=== PATIENT | female | born 1945 | race Caucasian/White ===

== ENCOUNTER 2016-08-11 16:12 | Emergency (ER) | payer OTHER ==
[~2016-08-11] VITALS: Ht 162.6 cm; Wt 53.5 kg
[~2016-08-11 16:12] MED LIST: ALENDRONATE SOD35 M2 PO; ALPRAZOLAM0.5 M3 PO; COUMADIN 2.5 M2.5 MG PO; DELZICOL400 M1 PO; DOCUSATE SODIU100 MG PO; FAMOTIDINE20 M1 PO; FOSAMAX5 MG PO; LOPERAMIDE2 M2 PO; OMEPRAZOLE20 M2 PO; OMEPRAZOLE40 MG PO; PANTOPRAZOLE SO40 M1 PO; PERCOCET 325 MG1 TA2 PO; PREDNISONE10 M2 PO; PROBIOTIC1 EACH PO; VITAMIN E400 UNI1 PO
[2016-08-11 17:00] LABS: ABSOLUTE BASOPHIL COUNT 0.1 /CUMM (0.0-0.2); ABSOLUTE EOSINOPHIL COUNT 0 /CUMM (0.0-0.7); ABSOLUTE GRANULOCYTE CT 5.7 /CUMM (1.4-6.5); ABSOLUTE LYMPH COUNT 1.1 /CUMM (1.2-3.4); ABSOLUTE MONOCYTE COUNT 0.7 /CUMM (0.10-0.60); BASOPHIL % 1.2 % (0.0-2.0); EOSINOPHIL % 0.6 % (0-5); GRANULOCYTE % 74.2 % (42.2-75.2); HEMATOCRIT 36.5 % (37-47); MEAN CORPUSCULAR HGB 28.3 PG (27.0-31.0); MEAN CORPUSCULAR HGB CONC 33.5 G/DL (33.0-37.0); MEAN CORPUSCULAR VOLUME 84.5 FL (81.0-99.0); MEAN PLATELET VOLUME 7.5 FL (7.4-10.4); PLATELET COUNT 488 /CUMM (130-400); RED BLOOD CELL CT 4.32 /CUMM (4.20-5.40); WHITE BLOOD CELL COUNT 7.6 /CUMM (4.8-10.8)
--- NOTE | 2016-08-11 18:28 | ED GI/GU/ABDOMINAL COMPLAINT ---
History of Present Illness General Chief Complaint: Abdominal Pain/Flank Pain Stated Complaint: NAUSEA, WEAK, ABD PAIN Source: patient, family, old records Exam Limitations: no limitations Vital Signs & Intake/Output Vital Signs & Intake/Output Vital Signs Date Time Temp Pulse Resp B/P Pulse O2 O2 Flow FiO2 Ox Delivery Rate 08/11 2220 97.4 93 18 109/70 97 Room Air 08/11 2117 97.1 100 18 114/68 96 Room Air 08/11 2000 96 08/11 1850 98.7 76 18 109/64 96 08/11 1628 97.7 53 16 146/83 95 Room Air ED Intake and Output 08/12 0000 08/11 1200 Intake Total Output Total Balance Patient 118 lb Weight Allergies Coded Allergies: NO KNOWN ALLERGIES (03/21/14) Reconcile Medications Budesonide (Uceris) (Unknown Strength) TABDR...ER (Unknown Dose) PO AD GI ( Reported) Famotidine 20 MG TABLET 1 TAB PO BID GI (Reported) Furosemide 20 MG TABLET 1 TAB PO DAILY PRN DIURETIC (Reported) Furosemide (Lasix) 40 MG TABLET 1 TAB PO DAILY leg edema Mesalamine 4 GRAM/60 ML ENEMA 1 E FL DAILY GI (Reported) Omeprazole 20 MG CAPSULE.DR 1 CAP PO DAILY GI (Reported) Ondansetron (Zofran Odt) 4 MG TAB.RAPDIS 1 TAB SL TID PRN nausea Potassium Chloride 20 MEQ TAB.ER.PRT 1 TAB PO DAILY SUPPLEMENT (Reported) Triage Note: PT STATES SHE WAS DIAGNOSED WITH COLITIS. PT STATSE SHE HASN'T BEEN ABLE TO EAT BECAUSE SHE HAS NAUSEA. PT HAS RASH TO LLE. PT STATES SHE KEEPS LOOSING WEIGHT. Triage Nurses Notes Reviewed? yes ? N Is pt currently ? No Onset: Abrupt Duration: week(s): (2), intermittent, waxing and waning Timing: recent history Quality/Severity: NAUSEA Severity Numbers: 5 Location: generalized abdomen Radiation: no radiation Activities at Onset: none Prior Abdominal Problems: similar symptoms No Modifying Factors: none Associated Symptoms: LEG EDEMA HPI: This is a 71-year-old female with history of ulcerative colitis presents to emergency room complaining of 2 week history of intermittent waxing and waning nausea for which she is been unable to eat anything. The patient states she was seen by her print decorator Dr. FLORES last week. The patient has never been on any nausea medicine she states however she hasn't been on steroids due to her colitis. She denies any abdominal pain vomiting diarrhea. She states she had a normal bowel movement this morning no black or bloody stools. The patient is also complaining of bilateral lower extremity edema which she states she's had on and off for the past several months. She was admitted here in April which time she had a negative ultrasound performed. She was admitted at that time because her potassium was low. She denies any leg pain chest pain fever. She states that she has chronic chills without is an ongoing issue. She states that she has been losing weight she cannot eat anything due to her nausea. She is not sought care for these symptoms until today however The patient is complaining of a rash to the bilateral lower extremities and shins. She denies any known injury or trauma however states is been present for approximately a week it is not getting larger or getting better. There are no modifying factors or associated symptoms otherwise no shortness of breath (AZUL CAZARES,MARSHAL) Past History Travel History Traveled to [place] past 21 day No Medical History Any Pertinent Medical History? 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 History of MRSA: No History of VRE: No History of CDIFF: No Pneumonia Vaccine: 07/31/13 Influenza Vaccine: 04/29/16 Surgical History Surgical History: hernia repair-inguinal (left), knee replacement, LEFT NEPHRECTOMY (donated to late in 1999) LIH repair 12/2005: R TKR 02/2014: redo R TKR Psychosocial History Who do you live with Daughter Services at Home None What is your primary language Marshallese Tobacco Use: Quit >30 days ago ETOH Use: denies use Illicit Drug Use: denies illicit drug use Family History Family History, If Any: FATHER, , Age 77; Cause: Unknown cause of morbidity or mortality. MOTHER, , Age 96; Cause: Dementia. Hx Contributory? No (MARSHAL HANKINS) Review of Systems Review of Systems Constitutional: Reports: see HPI. All Other Systems: Reviewed and Negative Comments Review of systems: See HPI, All other systems negative. Constitutional, no chills no fever, no malaise no weight los HEENT: No visual changes no sore throat no congestion, Cardiovascular: No chest pain , no palpitation , Skin, no jaundice no rashes, no change in skin Respiratory: No dyspnea no cough no sputum GI: nausea no vomiting, no diarrhea, : No dysuria Muscle skeletal: No joint pain, no back pain, no neck pain, Neurologic: No numbness no headache Psych: No stress Heme/endocrine: No bruising no bleeding Immunology: No lymphadenopathy (MARSHAL HANKINS) Physical Exam Physical Exam General Appearance: well developed/nourished, no apparent distress, alert, awake , comfortable Gastrointestinal: normal bowel sounds, soft, non-tender Comments: Well-developed well-nourished person in no acute distress HEENT: Normal EENT exam; PERRL, EOMI, HEAD is atraumatic. moist mucous membranes. Neck: Supple, normal range of motion Back: Nontender, no CVA tenderness. Full range of motion Cardiovascular: Regular rate and rhythms no murmurs rubs Respiratory: Chest nontender.There were no bony deformities, no asymmetry. No respiratory distress. Patient speaking in full complete sentences. Breath sounds clear to auscultation bilaterally: NO W/R/R Abdomen: Soft, nontender nondistended, no appreciable organomegaly. Normal bowel sounds. No rebound/guarding, No appreciable enlargement of the abdominal aorta, No ascites. Extremity:2+ B/L LE edema, full range of motion of extremities, normal and equal pulses bilaterally, 5 out of 5 strength noted to bilateral upper and lower extremities Neuro: Alert oriented x3, motor sensory normal, There were no obvious focal neurologic abnormalities. Skin: There is is an area of hyperpigmentation noted to the anterior surface of bilateral lower extremities there's no warmth no streaking up the skin nontender skin is intact, skin is warm and dry. Psych: Mood and affect is normal, memory and judgment is normal. Core Measures ACS in differential dx? No Severe Sepsis Present: No Septic Shock Present: No (MARSHAL HANKINS) Progress Differential Diagnosis: biliary colic, bowel obstruction, colon cancer, cholecystitis, diverticulitis, endometritis, esophageal varices, gastritis, hepatitis, hernia, hemorrhoids, ischemic bowel, inflamm bowel dis, kidney stone, Ivana-Dieudonne tear, pancreatitis, peptic ulcer, PUD/GERD, perforated viscous, SBO , dvt MEDICATION SIDE EFFECT PERIPHERAL EDEMA Plan of Care: Orders Procedure Date/time Status Saline Lock 08/11 1848 Active COMPREHENSIVE METABOLIC PANEL 08/11 1640 Complete CBC WITHOUT DIFFERENTIAL 08/11 1640 Complete EKG 08/11 1631 Active Laboratory Tests 08/11/16 1643: Anion Gap 12, Estimated GFR > 60, BUN/Creatinine Ratio 20.0, Glucose 87, Calcium 7.7 L, Total Bilirubin 0.6, AST 25, ALT 30, Alkaline Phosphatase 132 H, Total Protein 6.0 L, Albumin 2.3 L, Globulin 3.7, Albumin/Globulin Ratio 0.6 L, CBC w Diff NO MAN DIFF REQ, RBC 4.32, MCV 84.5, MCH 28.3, RDW 15.0 H, MPV 7.5, Gran % 74.2, Lymphocytes % 14.8 L, Monocytes % 9.2, Eosinophils % 0.6, Basophils % 1.2, Absolute Granulocytes 5.7, Absolute Lymphocytes 1.1 L, Absolute Monocytes 0.7 H, Absolute Eosinophils 0, Absolute Basophils 0.1, PUBS MCHC 33.5 Labs ordered from triage ultrasound ordered patient noted to be eating yogurt upon my evaluation I discussed with her at leave over lab results. Old records reviewed show the patient was admitted several months ago for hypokalemia of 2.6. Patient clinically appears well she is tolerating yogurt at this time ultrasound ordered Zofran, potassium IV ordered case was discussed with Dr. FERRELL Discussed with the patient and her family her ultrasound results prescription for Zofran was provided I discussed with her need for close follow up with her primary care as well as GI. I advised her to increase her Lasix to 40 mg a day from 20 mg a day keep her legs elevated. They feel comfortable to plan she is tolerating by mouth with the Zofran (MARSHAL HANKINS) Diagnostic Imaging: Viewed by Me: Ultrasound. Discussed w/RAD: Ultrasound. Radiology Impression: PATIENT: ANGELITA PALACIOS PRESENT AGE: 71 PATIENT ACCOUNT NO: [id number] : 43 LOCATION: [facility] ORDERING PHYSICIAN: MARSHAL CAZARES SERVICE DATE: 08/11/16 EXAM TYPE: US - US-EXT BILAT VENOUS DOPPLER EXAMINATION: US TRIPLEX LOWER EXTREMITY, BILATERAL CLINICAL INFORMATION: 71-year-old female patient with bilateral pain, edema, swelling, and leg tenderness. Previous knee replacement x2. Ulcerative colitis. COMPARISON : Triplex scan on 05/06/2016. (Normal). TECHNIQUE: Color-flow triplex imaging with spectral analysis and compression Doppler were performed on the bilateral lower extremities. FINDINGS: Respiratory variation, normal compression and augmented flow are noted throughout the bilateral lower extremities. The visualized common femoral vein, superficial femoral vein, profunda femoral vein, popliteal vein and mid calf peroneal and posterior tibial venous segments show no evidence of deep venous thrombosis. Considerable edema is seen in both calves. There is a small Lehman's cyst on the left as previously described. This measures 2.3 x 0.9 x 2.3 cm. It is smaller than before. IMPRESSION: Normal triplex scan without evidence of deep venous thrombosis involving the bilateral lower extremities. DICTATED BY: GIORGIO GALLARDO MD DATE/TIME DICTATED:08/11/162032 WELDING PROCESS ENGINEER:ROSA DATE/TIME TRANSCRIBED:08/11/162032 CONFIDENTIAL, DO NOT COPY WITHOUT APPROPRIATE AUTHORIZATION. <Electronically signed in Other Vendor System> SIGNED BY: GIORGIO GALLARDO MD 08/11/162040 Initial ED EKG: none (AZUL CAZARES,MARSHAL) Departure Departure Time of Disposition: 2050 Disposition: HOME OR SELF CARE Condition: Stable Clinical Impression Primary Impression: Nausea Secondary Impressions: Hypokalemia, Peripheral edema Referrals: SANDRA ALANIS,STEPHANIE BURCIAGA MD,TRAVON Espinoza (PCP/Family) Additional Instructions: Follow-up with your primary care physician tomorrow for repeat evaluation next week. Increase your Lasix to 40 mg once a day. Continue taking the potassium supplements you have at home. Zofran for nausea [place] diet advance diet as tolerated return at anytime sooner with any concerns These prescriptions were sent to your pharmacy. Departure Forms: Customer Survey General Discharge Information Prescriptions: Current Visit Scripts Furosemide (Lasix) 1 TAB PO DAILY #30 TAB Ondansetron (Zofran Odt) 1 TAB SL TID PRN nausea #20 TAB (MARSHAL HANKINS) PA/PILOT FUEL ENGINEER Co-Sign Statement Statement: ED Attending supervision documentation- x I saw and evaluated the patient. I have also reviewed all the pertinent lab results and diagnostic results. I agree with the findings and the plan of care as documented in the PA's/PILOT FUEL ENGINEER's documentation. [] I have reviewed the ED Record and agree with the PA's/PILOT FUEL ENGINEER's documentation. [] Additions or exceptions (if any) to the PAs/PILOT FUEL ENGINEER's note and plan are summarized below: [] (GHASSAN ALANIS,PERLA)
[2016-08-11] MEDS ORDERED: FAMOTIDINE20 M1 PO (19:26)
[2016-08-11] MEDS ORDERED: FUROSEMIDE20 M1 PO (19:26)
[2016-08-11] MEDS ORDERED: MESALAMINE4 GM/60 M1 PR (19:27)
[2016-08-11] MEDS ORDERED: UCERIS9 M1 PO (19:27)
[2016-08-11] MEDS ORDERED: POTASSIUM CHLO20 ME2 PO (19:28)
[2016-08-11] MEDS ORDERED: OMEPRAZOLE20 M2 PO (19:28)
--- NOTE | 2016-08-11 20:41 | ULTRASOUND REPORT ---
EXAMINATION: US TRIPLEX LOWER EXTREMITY, BILATERAL CLINICAL INFORMATION: 71-year-old female patient with bilateral pain, edema, swelling, and leg tenderness. Previous knee replacement x2. Ulcerative colitis. COMPARISON: Triplex scan on 05/06/2016. (Normal). TECHNIQUE: Color-flow triplex imaging with spectral analysis and compression Doppler were performed on the bilateral lower extremities. FINDINGS: Respiratory variation, normal compression and augmented flow are noted throughout the bilateral lower extremities. The visualized common femoral vein, superficial femoral vein, profunda femoral vein, popliteal vein and mid calf peroneal and posterior tibial venous segments show no evidence of deep venous thrombosis. Considerable edema is seen in both calves. There is a small Lehman's cyst on the left as previously described. This measures 2.3 x 0.9 x 2.3 cm. It is smaller than before. IMPRESSION: Normal triplex scan without evidence of deep venous thrombosis involving the bilateral lower extremities.
[2016-08-11] MEDS ORDERED: ZOFRAN ODT4 M1 SL (21:01)
[2016-08-11] MEDS ORDERED: LASIX40 M1 PO (21:01)
[2016-08-11 22:20] VITALS: BP 109/70
== END 2016-08-11 22:40 ==
LOC: ERH 16:12
PROVIDERS: Emergency Medicine
DX: E87.6 Hypokalemia (principal); R60.9 Edema, unspecified; R11.0 Nausea
CPT/HCPCS: 93005; 93010; 93970; 96374; 96375; J1940; J2405

== ENCOUNTER 2016-09-04 17:18 | Inpatient (IN) | payer OTHER ==
[~2016-09-04] VITALS: Ht 162.6 cm; Wt 51.3 kg
[~2016-09-04 17:18] MED LIST changes: +FUROSEMIDE20 M1 PO; +LASIX40 M1 PO; +MESALAMINE4 GM/60 M1 PR; +POTASSIUM CHLO20 ME2 PO; +UCERIS9 M1 PO; +ZOFRAN ODT4 M1 SL
--- NOTE | 2016-09-04 17:45 | ED GENERAL ADULT ---
History of Present Illness General Chief Complaint: General Adult Stated Complaint: POOR PO INTAKE, NASEOUS, WEIGHT LOSS Source: patient Exam Limitations: no limitations Vital Signs & Intake/Output Vital Signs & Intake/Output Vital Signs Date Time Temp Pulse Resp B/P Pulse O2 O2 Flow FiO2 Ox Delivery Rate 09/05 0109 97.7 69 20 118/60 97 Room Air 09/047 97.3 55 16 111/60 98 Room Air 09/04 1825 97 09/04 1745 97.1 47 16 106/53 97 Room Air ED Intake and Output 09/05 0000 09/04 1200 Intake Total 1000 Output Total Balance 1000 Intake, IV 1000 Patient 99 lb 15.99 oz Weight Allergies Coded Allergies: NO KNOWN ALLERGIES (03/21/14) Reconcile Medications Budesonide (Uceris) 9 MG TABDR...ER 1 TAB PO EOD GI (Reported) Famotidine 20 MG TABLET 1 TAB PO BID GI (Reported) Furosemide 20 MG TABLET 1 TAB PO DAILY PRN DIURETIC (Reported) Furosemide (Lasix) 40 MG TABLET 1 TAB PO DAILY leg edema Mesalamine 4 GRAM/60 ML ENEMA 1 E FL DAILY GI (Reported) Mesalamine (Apriso) 0.375 GRAM CAP.ER.24H 2 CAP PO BID GI (Reported) Multivitamin (Multi-Day Vitamins) 1 EACH TABLET 1 TAB PO DAILY SUPPLEMENT ( Reported) [place]-3 Fatty Acids ([place]-3) (Unknown Strength) CAPSULE (Unknown Dose) PO DAILY SUPPLEMENT (Reported) Omeprazole 20 MG CAPSULE.DR 1 CAP PO DAILY GI (Reported) Ondansetron (Zofran Odt) 4 MG TAB.RAPDIS 1 TAB SL TID PRN nausea Potassium Chloride 20 MEQ TAB.ER.PRT 1 TAB PO DAILY SUPPLEMENT (Reported) Vitamin E Mixed (Vitamin E) 400 UNIT TABLET 1 TAB PO BID SUPPLEMENT (Reported ) Triage Nurses Notes Reviewed? yes Onset: Gradual Duration: 4 MONTHS Timing: recent history Injury Environment: home Severity: moderate Associated Symptoms: NAUSEA, WEIGHT LOSS, ANOREXIA HPI: This is a 71-year-old female with history of recently diagnosed ulcerative colitis on mesalamine enemas and prednisone who presents to the ER with her daughter for chief complaint of worsening weakness, worsening weight loss. According to the daughter and the patient she is unable to keep because they thought of food makes her very nauseous. She's been having a lot of mucousy diarrhea in the morning mixed in with blood. She is due to have repair of her hiatal hernia at the end of the month by Dr. Dewey but states that she is getting too weak even have surgery. Daughter is very frustrated because although she has had a diagnosis March not in the medications that they have given her our working for her. No fever or chills. No abdominal pain or rectal pain. She denies any loss of consciousness or near syncope at home. (KARINE BAR MD) Past History Travel History Traveled to [place] past 21 day No Medical History Any Pertinent Medical History? 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 MOTHER, , Age 96; Cause: Dementia. Hx Contributory? No (KARINE BAR MD) Review of Systems Review of Systems Constitutional: Reports: malaise, weakness, unexplained weight loss. Denies: chills, fever. EENTM: Reports: no symptoms. Respiratory: Denies: cough, short of breath. Cardiovascular: Denies: chest pain. GI: Reports: diarrhea, nausea. Denies: abdominal pain, vomiting. Genitourinary: Denies: discharge, dysuria. Musculoskeletal: Reports: no symptoms. Skin: Reports: no symptoms. Neurological/Psychological: Reports: no symptoms. Hematologic/Endocrine: Reports: bleeding. Denies: bruising, polyuria, polydipsia. Immunologic/Allergic: Denies: splenectomy. All Other Systems: Reviewed and Negative (DIPIKA ALANIS,KARINE) Physical Exam Physical Exam General Appearance: alert, awake, cachetic, mild distress, thin Head: atraumatic, normal appearance Eyes: Bilateral: normal appearance, PERRL, EOMI. Ears, Nose, Throat: normal pharynx, normal ENT inspection, hearing grossly normal Neck: normal inspection, supple, full range of motion Respiratory: normal breath sounds, chest non-tender, no respiratory distress Cardiovascular: regular rate/rhythm Peripheral Pulses: 2+ radial (R), 2+ radial (L) Gastrointestinal: normal bowel sounds, soft, non-tender Back: normal inspection, normal range of motion Extremities: normal inspection, normal capillary refill, normal range of motion, no edema Neurologic/Psych: no motor/sensory deficits, awake, alert, oriented x 3 Skin: intact, normal color, warm/dry Core Measures ACS in differential dx? No CVA/TIA Diagnosis: No Severe Sepsis Present: No Septic Shock Present: No (KARINE BAR MD) Progress Differential Diagnoses I considered the following diagnoses in my evaluation of the patient: [ Ulcerative colitis exacerbation, dehydration, acute kidney injury, hypokalemia, hypovolemia, hyponatremia, failure of outpatient treatment of ulcerative colitis ] Plan of Care: Orders Procedure Date/time Status Clear Liquid Diet 09/05 B Active PHOSPHORUS 09/05 599 Active MAGNESIUM 09/05 599 Active CBC WITHOUT DIFFERENTIAL 09/05 599 Active BASIC ELECTROLYTES PLUS BUN&CR 09/05 599 Active Vital Signs 09/05 146 Active Teach/Educate 09/05 146 Active Nutritional Intake, Monitor 09/05 146 Active Isolation 09/05 146 Active Intake & Output 09/05 146 Active Patient Care Conference 09/05 014 Active Activity/Ambulation 09/05 014 Active Hemoccult 09/05 UNK Active CULTURE,STOOL 09/04 2346 Active C.DIFFICILE 09/04 2346 Active Pathway - chart 09/04 2311 Active House Staff 09/04 2311 Active Patient Data 09/04 2311 Active Code Status 09/04 2311 Active Patient Data 09/04 2040 Active Saline Lock 09/04 2033 Active Misc Message 09/04 2033 Active ED Holding Orders 09/04 2033 Active Vital Signs 09/04 2033 Active Code Status 09/04 2033 Complete Admit to inpatient 09/04 2032 Active Intake & Output 09/04 182 Active URINALYSIS 09/04 1749 Complete TROPONIN LEVEL 09/04 1749 Complete PARTIAL THROMBOPLASTIN TIME 09/04 1749 Complete PROTHROMBIN TIME 09/04 1749 Complete MAGNESIUM 09/04 1749 Complete COMPREHENSIVE METABOLIC PANEL 09/04 1749 Complete CBC WITHOUT DIFFERENTIAL 09/04 1749 Complete EKG 09/04 1749 Active VTE Mechanical Prophylaxis 09/04 UNK Active Current Medications Sig/Timoteo Start time Last Medication Dose Stop Time Status Admin Omeprazole 20 MG DAILY 09/05 1000 AC (Prilosec) Potassium Chloride 40 MEQ ONCE ONE 09/05 0800 AC (K-Dur) 09/05 08 Sodium Chloride 1,000 ML Q20H 09/05 0130 AC (Normal Saline 0.9%) Mesalamine 750 MG BID 09/04 2359 AC (Pentasa 250MG) Acetaminophen 650 MG Q6P PRN 09/04 2315 AC (Tylenol) Acetaminophen/ 1 TAB Q6P PRN 09/04 2315 AC Hydrocodone Bitart (Vicodin) Oxycodone/ 2 TAB Q6P PRN 09/04 2315 AC Acetaminophen (Percocet) Heparin Sodium 5,000 UNIT Q8 09/04 2310 AC (Porcine) Laboratory Tests 09/04/162051: Urine Color YEL, Urine Clarity CLEAR, Urine pH 6.0, Ur Specific [place] 1.025, Urine Protein TRACE H, Urine Ketones 15 H, Urine Nitrite NEG, Urine Bilirubin NEG@ICTO, Urine Urobilinogen 0.2, Ur Leukocyte Esterase SMALL H, Ur Microscopic SEDIMENT EXAMINED, Urine RBC RARE, Urine WBC 3-5 H, Ur Epithelial Cells MANY H , Hyaline Casts FEW H, Urine Mucus MANY H, Urine Hemoglobin NEG, Urine Glucose NEG 09/04/16 1820: Anion Gap 5, Estimated GFR > 60, BUN/Creatinine Ratio 20.0, Glucose 79, Calcium 7.7 L, Magnesium 1.8, Total Bilirubin 0.7, AST 25, ALT 37, Alkaline Phosphatase 133 H, Troponin I < 0.01, Total Protein 5.7 L, Albumin 2.2 L, Globulin 3.5, Albumin/Globulin Ratio 0.6 L, PT 13.7 H, INR 1.31 H, APTT 29, CBC w Diff NO MAN DIFF REQ, RBC 4.49, MCV 83.3, MCH 27.6, RDW 14.6 H, MPV 7.9, Gran % 79.5 H , Lymphocytes % 11.4 L, Monocytes % 8.2, Eosinophils % 0.2, Basophils % 0.7, Absolute Granulocytes 7.8 H, Absolute Lymphocytes 1.1 L, Absolute Monocytes 0.8 H, Absolute Eosinophils 0, Absolute Basophils 0.1, PUBS MCHC 33.2 Microbiology 09/04 2345 STOOL: Clostridium difficile Toxin A & B - ORD 09/04 2345 STOOL: Stool Culture - ORD Initial ED EKG: NSR, pvcS Hand-Off Endorsed To: MAURICIO EVANS MD Endorsed Time: 1899 Pending: labs (KARINE BAR MD) Differential Diagnoses I considered the following diagnoses in my evaluation of the patient: (MAURICIO EVANS MD) Departure Departure Disposition: HOME OR SELF CARE Condition: Stable Referrals: GUALBERTO ALANIS,TRAVON Espinoza (PCP/Family) Departure Forms: Customer Survey General Discharge Information (KARINE BAR MD) Departure Clinical Impression Primary Impression: Diarrhea Secondary Impressions: Dehydration, Failure to thrive, Hypokalemia, Ulcerative colitis Admission Note Spoke With: MAGED ALANIS,BROOK Chao Documentation of Exam: Documentation of any treatments & extenuating circumstances including Concerns Regarding Discharge (functional status, medication knowledge or non-compliance, living conditions, etc.) that warrant an admission rather than observation: pt with recurrent diarrhea, on oral steroids, has failed out patient management for her ulcerative colitis, also with electrolyte abnormalities. Pt merits iv steroids, consider immunologics, also will need iv fluids and electrolyte repletion. discussed with dr. nicholas (gi) who will evaluate this AM. (MAURICIO EVANS MD) Critical Care Note Critical Care Note Critical Care Time: non-applicable (KARINE BAR MD)
[2016-09-04] MEDS ORDERED: MULTI-DAY VITA1 EACH PO (18:22)
[2016-09-04] MEDS ORDERED: VITAMIN E400 UNI2 PO (18:22)
[2016-09-04] MEDS ORDERED: APRISO0.375 G1 PO (18:24)
[2016-09-04] MEDS ORDERED: OMEGA-31000 M1 PO (18:25)
[2016-09-04 18:37] LABS: ABSOLUTE BASOPHIL COUNT 0.1 /CUMM (0.0-0.2); ABSOLUTE EOSINOPHIL COUNT 0 /CUMM (0.0-0.7); ABSOLUTE GRANULOCYTE CT 7.8 /CUMM (1.4-6.5); ABSOLUTE LYMPH COUNT 1.1 /CUMM (1.2-3.4); ABSOLUTE MONOCYTE COUNT 0.8 /CUMM (0.10-0.60); BASOPHIL % 0.7 % (0.0-2.0); EOSINOPHIL % 0.2 % (0-5); GRANULOCYTE % 79.5 % (42.2-75.2); HEMATOCRIT 37.4 % (37-47); MEAN CORPUSCULAR HGB 27.6 PG (27.0-31.0); MEAN CORPUSCULAR HGB CONC 33.2 G/DL (33.0-37.0); MEAN CORPUSCULAR VOLUME 83.3 FL (81.0-99.0); MEAN PLATELET VOLUME 7.9 FL (7.4-10.4); PLATELET COUNT 409 /CUMM (130-400); RBC DISTRIBUTION WIDTH 14.6 % (11.5-14.5); RED BLOOD CELL CT 4.49 /CUMM (4.20-5.40); WHITE BLOOD CELL COUNT 9.8 /CUMM (4.8-10.8)
[2016-09-04 18:48] LABS: PT 13.7 SEC (9.4-12.5); PTT 29 SEC (25-37)
--- NOTE | 2016-09-04 22:23 | History & Physical ---
See Addendum JASMIN ALANIS,RIVKA 09/04/16 2222: [facility] Information and [facility] MD Statement: I have seen and personally examined ANGELITA PALACIOS and documented this H&P. The patient is a 71 year old F who presented with a patient stated chief complaint of [feeling sick]. Source of Information: patient Exam Limitations: no limitations History of Present Illness: Patient is a 71-year-old lady who has come the ED complaining of persistent filling of being nauseous, with poor appetite and significant weight loss since her diagnosis of ulcerative colitis in April 2016. Patient was started on treatment with steroids and mesalamine which resulted in improvement of her symptoms, however since she stopped steroids she has been experiencing similar symptoms including nausea, poor appetite and inability to gain weight. She has lost 40 pounds since March. She also has been persistently passing pus, red mucous with foul smell, and incontinence especially during the night causing her to wear diapers. Patient denies abdominal pain however reports feeling 'gassy and crampy in the rear end'. She reports that bowel movements were more constant at the beginning and now has been less frequent and about 5-6 times a day. During her admission in April patient underwent colonoscopy and was found to have a hiatal hernia for which she is following with Dr. Dewey and is supposed to get a surgical repair on September 21. Patient also has a colonoscopy and endoscopy appointment with Dr. Amezquita in October 03. Patient denies fever or chills, mouth ulcers, however reports skin rash on the right and left lower legs which has improved since she was started on her treatment for UC. Patient also has a chronic bilateral lower extremity edema for which she takes furosemide with potassium supplementation. Patient also reports dizziness and headache. No chest pain or palpitation or shortness of breath or coughing. Denies any recent respiratory tract infection, denies urinary symptoms, no recent antibiotic use. Allergies/Medications Allergies: Coded Allergies: NO KNOWN ALLERGIES (03/21/14) Home Med list Budesonide (Uceris) 9 MG TABDR...ER 1 TAB PO EOD GI (Reported) Famotidine 20 MG TABLET 1 TAB PO BID GI (Reported) Furosemide 20 MG TABLET 1 TAB PO DAILY PRN DIURETIC (Reported) Furosemide (Lasix) 40 MG TABLET 1 TAB PO DAILY leg edema Mesalamine 4 GRAM/60 ML ENEMA 1 E MN DAILY GI (Reported) Mesalamine (Apriso) 0.375 GRAM CAP.ER.24H 2 CAP PO BID GI (Reported) Multivitamin (Multi-Day Vitamins) 1 EACH TABLET 1 TAB PO DAILY SUPPLEMENT ( Reported) [place]-3 Fatty Acids ([place]-3) (Unknown Strength) CAPSULE (Unknown Dose) PO DAILY SUPPLEMENT (Reported) Omeprazole 20 MG CAPSULE.DR 1 CAP PO DAILY GI (Reported) Ondansetron (Zofran Odt) 4 MG TAB.RAPDIS 1 TAB SL TID PRN nausea Potassium Chloride 20 MEQ TAB.ER.PRT 1 TAB PO DAILY SUPPLEMENT (Reported) Vitamin E Mixed (Vitamin E) 400 UNIT TABLET 1 TAB PO BID SUPPLEMENT (Reported ) Past History Travel History Traveled to [place] past 21 day No Medical History Neurological: NONE EENT: cataracts Cardiovascular: NONE Respiratory: NONE Gastrointestinal: colitis (questionable), diverticulitis (sigmoid), hiatal hernia, irritable bowel syndrome, DIVERTICULOSIS RIH, HIATAL HERNIA Hepatic: cholelithiasis, fatty liver Renal: 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 FH: cancer MOTHER, , Age 96; Cause: Dementia. Psychosocial History Who Do You Live With? child Services at Home: None Primary Language: [place]an Living Will? yes Power of Game Show Host/HCP? yes Name of POA/HCP: The pt's 2 dtrs Functional Ability ADLs Independent: dressing, eating, toileting, bathing. Ambulation: independent IADLs Independent: shopping, housework, finances, food prep, telephone, transportation , medication admin. Review of Systems Review of Systems Constitutional: Reports: malaise (loss of appetite, weight loss), weakness. Denies: chills, fever. EENTM: Reports: no symptoms. Cardiovascular: Reports: peripheral edema. Denies: chest pain, orthopena, palpitations, syncope. Respiratory: Denies: cough, short of breath, sputum production. GI: Reports: bowel incontinence, nausea, bloody stool. Denies: abdominal pain, bloating, constipation, diarrhea, changes in stool, vomiting. Genitourinary: Reports: no symptoms. Musculoskeletal: Reports: no symptoms. Skin: Reports: rash. Neurological/Psychological: Reports: no symptoms. Hematologic/Endocrine: Reports: no symptoms. Immunologic/Allergic: Reports: no symptoms. Exam & Diagnostic Data Last 24 Hrs of Vital Signs/I&O Vital Signs Date Time Temp Pulse Resp B/P Pulse O2 O2 Flow FiO2 Ox Delivery Rate 09/05 0109 97.7 69 20 118/60 97 Room Air 09/04 2057 97.3 55 16 111/60 98 Room Air 09/04 1825 97 09/04 1745 97.1 47 16 106/53 97 Room Air Intake & Output 09/05 0800 09/05 0000 09/04 1600 Intake Total 1000 Output Total Balance 1000 Intake, IV 1000 Patient 51.256 kg Weight Physical Exam General Appearance Alert, Oriented X3, Cooperative, No Acute Distress Skin No Breakdown, maculopapular rash on the medial and lateral aspects ofthe right lower leg, as well as a small rash on the medial aspect of the left lower leg. nontender, with no scaling. HEENT Atraumatic, PERRLA, EOMI, Mucous Membr. moist/pink Neck Supple, No JVD Cardiovascular Regular Rate, Normal S1, Normal S2, 2/6 systolic murmur Lungs Clear to Auscultation, Normal Air Movement Abdomen Normal Bowel Sounds, Soft, No Tenderness, No Hepatospenomegaly Neurological Normal Speech, Strength at 5/5 X4 Ext, Normal Tone, Sensation Intact, Cranial Nerves 3-12 NL Extremities No Clubbing, No Cyanosis, nonpitting edema of the bilateral lower extremities right more than the left, chronic and stable. Vascular Normal Pulses, Pulses Symmetrical Assessment/Plan Assessment: Patient is a 71-year-old lady with PMH of recently diagnosed ulcerative colitis, mild internal hemorrhoids, diverticulitis, GERD, cholelithiasis, DJD, osteopenia , osteoarthritis, s/p kidney donation who has come to the ED due to persistent symptoms of poor appetite, weight loss, passing loose mucoid, foul-smelling stool. Patient's vital signs are stable, no fever. Lab work does not show any leukocytosis. Potassium of 3, calcium of 7.7 with total protein of 5.7 and albumin of 2.2. Problem list and plan: Ulcerative colitis with persistent diarrhea, possible flareup Accompanied by nausea and poor appetite as well as weight loss, worsened since the discontinuation of steroids. * Vital signs every shift * Gastroenterology consult placed for a.m. * Continue mesalamine * Consider starting her back on steroids * Clear liquid diet and advance as tolerated * Guaiac all stools * stool culture * CRP, ESR Chronic lower extremity edema Patient takes furosemide as needed. Possible etiology can be her low total protein and albumin decreasing hydrostatic pressure and causing edema. * Currently has not increased from baseline, will keep furosemide on hold for now * Patient takes protein supplement * Nutrition consult Hypokalemia and hypomagnesemia * Replete K and Mg accordingly History of GERD * Omeprazole 20 mg daily DVT prophylaxis * subcutaneous heparin Full code As Ranked By This Provider Problem List: 1. Hypokalemia 2. Nausea 3. Hiatal hernia 4. Ulcerative colitis 5. Leg edema Core Measures/Miscellaneous Acute Coronary Syndrome ACS Diagnosis: No Cerebrovascular Accident CVA/TIA Diagnosis: No Congestive Heart Failure CHF Diagnosis: No Venous Thromboembolism VTE Risk Factors: Acute medical illness, Age > 40 VTE Prophylaxis Ordered Inpt: Pharm- Heparin No Mech VTE prophylaxis d/t: No contraindications No VTE Pharm Prophylaxis d/t: No contraindications VTE Diagnosis: No VTE Type: NONE VTE Confirmed by (Test): NONE Severe Sepsis Severe Sepsis Present: No Septic Shock Septic Shock Present: No Miscellaneous Documentation Attending Case Discussed With: TRAVON BURCIAGA MD Primary Care Physician: TRAVON BRUCIAGA MD Patient sees these Specialists Dr. Amezquita, gastroenterology Dr. Dewey, general surgery Level of Patient Care: General Medicine REYNOLD POZO 09/05/16 0122: Resident Review Statement Resident Statement: examined this patient, discussed with rn internal medicine, agreed with rn internal medicine Other Findings: Patient is 71 year old female with past medical history significant for gallstones, diverticulosis coli, status post nephrectomy in 1999 and donate her kidney to late , recently diagnosed ulcerative colitis April 2016 and had chronic diarrhea since then came with chief complaint of worsening diarrhea, poor appetite and weight loss of 40 pounds since then. Patient admits that for last few days she had 5-6 foul smelly bowel movements with a lot of mucus/pussy material and mixed with blood. She denied any abdominal cramps but she is nauseous and her poor appetite is now bothering her. She had lower extremity edema right more than left noticed since April. She walks with cane at baseline. She denies fever, chills, headache, chest pain, any urinary complaints. Vital signs on admission were temperature 97.1, pulse 57, respiratory rate 16, blood pressure 106/53 and she is saturating 97% on room air. Labs on admission were WBC count 9.8, hemoglobin 12.4, hematocrit 37.4, platelet count 409, INR 1.31, sodium 134, potassium 3.0, chloride 96, MB UN 14 and creatinine 0.7. Physical examination Head atraumatic Neck supple Chest clear to auscultation Heart S1-S2 normal with systolic murmur 2 x 6 Abdomen soft with normal bowel sounds no pronounced tenderness noted Bilateral lower extremity edema with 1 x 1 cm skin lesion most likely erythema nodosum on left tapia and faint skin rash on the right tapia No neurological deficit noted Assessment and plan Patient is 71 year old female with history of recently diagnosed ulcerative colitis and significant weight loss with chronic diarrhea most likely due to ulcerative colitis flareup. Problem list 1. Ulcerative colitis flareup/chronic diarrhea 2. Weight loss 3. Protein malnutrition 4. Nausea and vomiting Plan We will admit patient to general medical floor Vital signs every shift including orthostatics Will start patient on clear liquids and advance diet accordingly Gastroenterology consultation in a.m. We will continue her home dose of mesalamine Patient was given IV Solu-Medrol in ED we will consider starting her on IV steroids after consulting GI in a.m. We will consider mesalamine enemas after consulting GI in a.m. We will guaiac all stools On admission her potassium was low as well as her magnesium most likely due to diarrhea we will treat it accordingly. Clear liquid diet Pharmacological DVT prophylaxis for now Patient is full code
[2016-09-05 01:09] VITALS: BP 118/60
--- NOTE | 2016-09-05 06:33 | PN- Housestaff ---
Subjective Follow-up For: UC flare Complaints: no complaints Subjective: Patient seen and examined, resting comfortably in her hospital bed. Denies any abdominal pain or discomfort however states that she continues to have diarrhea which is foul-smelling and with mucus. Review of Systems Constitutional: Reports: see HPI. Objective Last 24 Hrs of Vital Signs/I&O Vital Signs Date Time Temp Pulse Resp B/P Pulse O2 O2 Flow FiO2 Ox Delivery Rate 09/05 010 97.7 69 20 118/60 97 Room Air 09/04 2056 97.3 55 16 111/60 98 Room Air 09/04 1825 97 09/04 174 97.1 47 16 106/53 97 Room Air Intake & Output 09/05 0800 09/05 0000 09/04 1600 Intake Total 1000 Output Total Balance 1000 Intake, IV 1000 Patient 113 lb Weight Physical Exam General Appearance: Alert, Oriented X3, Cooperative Skin: Rash on RLE HEENT: Atraumatic, PERRLA, EOMI Cardiovascular: Regular Rate, Normal S1, Normal S2 Lungs: Clear to Auscultation, Normal Air Movement Abdomen: Normal Bowel Sounds, Soft, No Tenderness Neurological: Normal Speech, Strength at 5/5 X4 Ext, Normal Tone, Sensation Intact Extremities: No Clubbing, No Cyanosis Current Medications: Current Medications Sig/Timoteo Start time Last Medication Dose Route Stop Time Status Admin Acetaminophen 650 MG Q6P PRN 09/04 2314 AC PO Acetaminophen/ 1 TAB Q6P PRN 09/04 2314 AC Hydrocodone Bitart PO Heparin Sodium 5,000 UNIT Q8 09/04 2310 AC 09/05 (Porcine) SC 0624 Magnesium Oxide 400 MG ONE ONE 09/05 599 DC 09/05 PO 09/05 600 0624 Magnesium Oxide 400 MG ONE ONE 09/04 2345 DC PO 09/04 234 Mesalamine 1,000 MG BID 09/05 1000 AC PO Mesalamine 750 MG BID 09/04 2359 DC PO Methylprednisolone 40 MG Q12 09/05 999 AC IV Methylprednisolone 0 .STK-MED ONE 09/04 2034 DC .ROUTE Methylprednisolone 125 MG ONCE ONE 09/04 2029 DC 09/04 IV 09/04 Omeprazole 20 MG DAILY 09/05 1000 AC PO Oxycodone/ 2 TAB Q6P PRN 09/045 AC Acetaminophen PO Potassium Chloride 40 MEQ ONCE ONE 02/06 0800 AC PO 02/06 0801 Potassium Chloride 0 .STK-MED ONE 09/04 1917 DC PO Potassium Chloride 60 MEQ ONCE ONE 09/04 1914 DC 09/04 PO 09/04 1915 1937 Sodium Chloride 1,000 ML Q20H 09/05 0130 AC 09/05 IV 0321 Sodium Chloride 1,000 ML BOLUS ONE 09/04 1830 DC 09/04 IV 09/04 1928 183 Last 24 Hrs of Lab/Woody Results Last 24 Hrs of Labs/Mics: Laboratory Tests 09/04/162051: Urine Color YEL, Urine Clarity CLEAR, Urine pH 6.0, Ur Specific Pierce 1.025, Urine Protein TRACE H, Urine Ketones 15 H, Urine Nitrite NEG, Urine Bilirubin NEG@ICTO, Urine Urobilinogen 0.2, Ur Leukocyte Esterase SMALL H, Ur Microscopic SEDIMENT EXAMINED, Urine RBC RARE, Urine WBC 3-5 H, Ur Epithelial Cells MANY H , Hyaline Casts FEW H, Urine Mucus MANY H, Urine Hemoglobin NEG, Urine Glucose NEG 09/04/161819: Anion Gap 5, Estimated GFR > 60, BUN/Creatinine Ratio 20.0, Glucose 79, Calcium 7.7 L, Magnesium 1.8, Total Bilirubin 0.7, AST 25, ALT 37, Alkaline Phosphatase 133 H, Troponin I < 0.01, Total Protein 5.7 L, Albumin 2.2 L, Globulin 3.5, Albumin/Globulin Ratio 0.6 L, PT 13.7 H, INR 1.31 H, APTT 29, CBC w Diff NO MAN DIFF REQ, RBC 4.49, MCV 83.3, MCH 27.6, RDW 14.6 H, MPV 7.9, Gran % 79.5 H , Lymphocytes % 11.4 L, Monocytes % 8.2, Eosinophils % 0.2, Basophils % 0.7, Absolute Granulocytes 7.8 H, Absolute Lymphocytes 1.1 L, Absolute Monocytes 0.8 H, Absolute Eosinophils 0, Absolute Basophils 0.1, PUBS MCHC 33.2 Microbiology 09/04 2345 STOOL: Clostridium difficile Toxin A & B - COLB 09/04 2345 STOOL: Stool Culture - COLB Assessment/Plan Assessment: Assessment- 1. Ulcerative colitis flareup/chronic diarrhea 2. Weight loss 3. Protein malnutrition 4. Nausea and vomiting Plan- Continue IV Solu-Medrol and mesalamine She is on clear liquid diet, if she is able to tolerate, will discontinue IV fluids Pending GI evaluation this morning Continue pain meds per EMR Stool studies pending Her nausea and vomiting seems to have been alleviated Out of bed to chair Problem List: 1. Failure to thrive 2. Peripheral edema 3. Diverticulosis of colon 4. Protein losing enteropathy 5. Ulcerative colitis Pain Ratin Pain Location: none Pain Goal: Pain 4 or less Pain Plan: per emr Tomorrow's Labs & Rationales: per emr
--- NOTE | 2016-09-05 07:40 | Cons- Gastroenterology ---
General Information and HPI Consulting Request Date of Consult: 09/05/16 Requested By: TRAVON BURCIAGA MD Reason for Consult: Notified ths a.m. of a request to see patint for ulcerative colitis, failure to thrive, weight loss, decreased appetite, malnutrition, & mild diarrhea. Source of Information: patient, old records Exam Limitations: no limitations History of Present Illness: 71-year-old female with known ulcerative colitis, diagnosed 05/05/2016 via colonoscopy, with mild to moderate chronic active colitis from the rectum to the transverse colon, without any dysplasia, malignancy, or granuloma. Stains for CMV were negative. She had some nonspecific raised lumpy bumpy areas, suspicious for pseudopolyps. She previously was on inpatient IV Solu-Medrol, and was tapered, then switched to Uceris. She was last seen in the office 2016.At that time, her Uceris had been stopped 07/29/2016. She was maintained on Apriso 0.375g tab 4 tabs daily, as her insurance company stopped her previous mesalamine, Delzicol. She was also on Rowasa enemas 4g Q bedtime. Her symptoms flared off sterids, and her Uceris 9 mg daily was resumed 09/01/2016. *I previously had long discussions with the patient regarding immunosuppressants, such as 6-MP, or biologic agents, including the risks and benefits, but as she was improving, we held off on these, keep in mind her advanced age, which especially can make biologic agents more risky. The patient presented to the [facility] 09/04/2016 at 5:18 p.m., at which point, she was hemodynamically stable (although bradycardic) & afebrile, and planning of a few weeks of nausea, decreased by mouth intake, and mild diarrhea (< 4x/day max), with occasional rectal bleeding, pus & mucus in the stool, which is baseline for the patient. There is also some mild fecal incontinence She did state however that she has lost 40 pounds since 03/2016. *Some of the above is from a large intrathoracic hiatal hernia, for which she is scheduled for a laparoscopic repair by Dr. Dewey later this month, on 09/21/2016, with the caveat that her ulcerative colitis stabilizes prep. She has chronic mild early satiety, attributed to the hiatal hernia. Her reflux symptoms are stable on outpatient Pepcid 20 mg po BID. Omeprazole (PPI) was previously stopped because of low magnesium levels. There is no history of melena. She denies any fevers, chills, symptoms of UTI, URI, abdminal pain, constipation, or obstipation. There is mild tenesmus. She denies any rashes, aside from some stasis dermatitis changes. There are no acute arthralgias, although she has chronic DJD. She denies any recent antibiotics, recent travel, or NSAID use. There is no point source by history. She denies any raw food ingestion. She was given IV Solu-Medrol 125 mg by the ER, along with IV NS & IV potassium. *Some of the patient's low potassium is from outpatient Lasix use, although she saw vascular surgery and her peripheral edema was felt to be from low protein state. 04/27/2016: *CT ABD & PELVIS W IV CONTRAST 1. Intrathoracic stomach. This alone could cause nausea and pain. 2. Fatty liver. 3. Cholelithiasis. Enlarged gallbladder. 4. Large duodenal diverticulum that seems to mildly compress the distal common bile duct. 5. Findings that would suggest left-sided colitis. Diverticulosis of the sigmoid with mild case of diverticulitis. 6. Solitary right kidney. 7. Portion of the body of the pancreas drawn towards the diaphragmatic hiatus. 05/06/2016: XRY-CHEST XRAY, PA AND LATERAL Mild cardiomegaly. No acute pneumonic process. Large hiatal hernia. 08/11/2016: US-EXT BILAT VENOUS DOPPLER- Negative for DVT. Small left Lehman's cyst. 09/04/2016: Admission labs- WBC 9.8 (80% gran/8 gra Ab), H/H 12.4/37.4, normal MCV, PLT 409, Pt 13.7, INr 1.31, PTT 29. glu 79. BUN/Cr 14/0.7, GFR > 60, *K 3.0, HCO3 33, AG 5, Mg 1.8, Ca2+ 7.7, albumin 2.2, globulin 3.5, TBil 0.7, alk phos 133, AST 25, ALT 37, toponon < .01; U/A- clear, yellow, 1.025, 6.0, rare RBC, 3-5 WBC, few bact, many epithelial cells, 15+ ketone, tr protein, negative icto, urobilinogen 0.2, negative nitrite, small esterase. 09/05/2016: WBC 12.9 (post steroids), H/H 10.7/32.2, PLT 357, stable electrolytes except forborderline Na 135, K 3.7, HCO3 27, AG 7, Mg2+ 1.8, PO4 3.9, BUN/Cr 12/0.7, GFR > 60 *No imaging studies were obtained on admission. 09/04/2016: EKG- NSR @ 80, borderline LAD, ventricular bigeminy, NSST inferiorly. She is followed for primary care by Dr. Grady and Dr. 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 Dewey, non-hypertensive, non-diabetic, DJD , osteoporosis, fatty liver, incidental cholelithiasis, incidental duodenal diverticulum, right inguinal hernia, history of hypokalemia and hypomagnesemia, originally seen in inpatient GI consultation at [facility] 04/28/2016, when she was admitted to [facility] 04/27/2016 to 05/02/2016, for diarrhea and an abnormal CAT scan. She was to have seen me in the office in GI consultation a few weeks later , but was admitted for the above. 04/27/2016: CT scan of the abdomen and pelvis with IV contrast- intrathoracic stomach, large hiatal hernia, fatty liver, cholelithiasis, large duodenal diverticulum near a 9 mm CBD, colitis from the hepatic flexure to the sigmoid, solitary right kidney, & fat-containing right inguinal hernia (*see above). *Additionally, the CT was initially read as sigmoid diverticulitis, but in retrospect, there was no diverticulitis, just diverticulosis and the colitis. The patient remotely had right total knee replacement in 12/2005, with redo in 02/2014, and cataract surgery OU. 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 Upon admission 04/27/2016, she had OB-positive stool with hyperkalemia. Please note, 06/18/2002: baseline surgical colonoscopy without biopsies by Dr. Meneses (purged from the computer)- reportedly "normal". The patient is an ex-25 pack year smoker, stopping in 1989. Please note, 04/27/2016: *stool culture, C. difficile, Shiga toxin, Crypto Ag, & Giardia Ag- all negative. The patient was initially treated with Ceftriaxone and Flagyl for questionable sigmoid diverticulitis then, however the antibiotics were stopped in 2-3 days, after re-reading the CT with radiology. 04/27/2016: Positive lactoferrin. 04/29/2016: ESR 1, elevated CRP 17.3, normal TFTs with normal TSH. Admission labs 04/27/2016: WBC 10.1 (borderline left shift), H/H 14.1/42.2 (hemoconcentrated), normal MCV, PLT 395K, BUN/Cr 16/0.7, GFR > 60, potassium 2.9, normal LFTs, except decreased albumin 2.6, globulin 3.2. 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 04/29/2016: normal IgA 123, DGP Ab- negative, low carotene < 2. 04/30/2016: tTG Ab- negative. There is no family history of any GI malignancy, GI disease, or inherited liver disease. She was discharged from [facility] to home 05/02/2016. 05/05/2016: *Outpatient combined baseline EGD to the third portion of the duodenum (hiatal hernia evaluation), plus followup colonoscopy to the terminal ileum with a pediatric colonoscope (for colitis)- random small bowel biopsy second and third portions of the duodenum- negative, large periampullary duodenal diverticulum, multiple superficial gastric erosions with tiny eschars- biopsies with acute erosive gastritis, H. pylori- negative, large hiatal hernia, Z-line at 30 cm, with mild to moderate GERD on biopsies. The patient appeared to have pancolitis endoscopically. There was no gross backwash ileitis. The colitis seemed mild to moderate in the rectum, more severe from the sigmoid to the upper right colon, then diminishing to the cecum, endoscopically. There appeared to be some nonspecific lumpy bumpy areas in a patchy fashion, probably representing pseudopolyps, and this will have to be readdressed after treatment, mild left sided diverticula, mild internal hemorrhoids. *Colon biopsy stains for CMV- negative. Biopsies of terminal ileum, cecum, and right colon- negative. Biopsies of the transverse colon and left colon- mild chronic active colitis. Biopsies of the sigmoid- moderate chronic active colitis. Biopsy of the rectum- mild chronic active colitis, without dysplasia or malignancy. There were no granulomas. The patient was then readmitted to [facility] 1 day postop, from 2015 to 05/10/2016 with increased diarrhea, hypokalemia, hypomagnesemia and dehydration. *Please note, 05/05/2016: normal fasting gastrin 17, *QuantiFeron TB testing- indeterminate (low anergy), TPMT genotype and phenotype- normal genotype and normal enzyme activity; Hep A Ab, Hep Bs Ag, Hep B core Ab, & Hep C Ab- all negative, HIV- negative. 05/06/2016: *Chest x-ray- negative (with regard to indeterminate QuantiFeron testing), except for HH. Regarding the peripheral edema, 05/06/2016: Doppler LE B/L- negative for DVT. She was put on IV Solu Medrol 40 mg BID, with marked improvement. This was switched to Prednisone 30 mg twice a day, Delzicol 400 mg tablet 3 tabs 3 times a day, plus Imodium as needed. The patient was already on Fosamax. She was initially put on PPI for the gastric erosions, however this was switched to Pepcid because of the low magnesium. However, she was put back on Omeprazole prior to discharge by the housestaff. Ms. Surekha Orozco returned to the office 08/02/2016, accompanied by her sister- in-law, Angela, last in the office 05/20/2016. There was no postprandial pain to suggest intestinal angina. Please note, recent labs show that the patient was mildly hypothyroid, not hyperthyroid, with regard to the weight loss. She has erroneously continued her Omeprazole in addition to the Pepcid 20 mg BID. The Omeprazole was supposed to have been stopped last visit 05/20/2016, because of the low magnesium levels, which were felt to be mostly from diarrhea and from her diuretics. GI labs 05/24/2016: WBC 9.9, H/H 10.9/33.3, normal MCV, PLT 299, ESR 15, CRP 0.7, normal CMP except for mild contraction alkalosis and mild malnutrition, with albumin 2.9, globulin 2.8, other LFTs normal. 07/05/2016: normal fecal elastase 439 obtained for weight loss, going against pancreatic insufficiency. Labs per PMD 07/05/2016: WBC 6.3, H/H 12.4/38.3, PLT 356, ESR 5, normal CMP except albumin 2.6, globulin 3.4 with other LFTs negative, borderline elevated TSH 4.94, normal FT4 1.46, magnesium 1.6. The patient was stable off the Uceris, when last in the office 08/02/2016. She had not yet been vaccinated against Hepatitis A and B. She never went for he Hp Bs Ab. Assuming she was not immune, she was again told to follow up with her PMD to be semi-electively vaccinated against both Hepatitis A and B, in case more heavy duty immunosuppressants, such as 6MP, and/or biologic agents are needed. *The risk of biologic agents, immunosuppressants and/or steroids were previously discussed with the patient and include but are not limited to diabetes, hypertension, peptic ulcer disease, fluid overload, immunosuppression, myopathy, adrenal insufficiency, AVN, osteoporosis (which she already has), cataracts, pancytopenia, alopecia, glaucoma, TB, lymphoma, skin cancer, malignancy, hepatotoxicity, infusion reaction, lupus-like syndrome, myelosuppression, pancreatitis and/or opportunistic infections. She is agreeable to these if needed. When last in the office 08/02/2016, I advised a repeat colonoscopy with a pediatric colonoscope with chromoendoscopy in 09/2016 to reassess what appeared to be lumpy bumpy areas that are probably pseudopolyps. I also advised repeating an EGD at that time, in view of the numerous diffuse gastric erosions with eschars, which were borderline shallow ulcerations. The risks & benefits of EGD/colonoscopy were again discussed with the patient, and she wished to proceed. She was told to increase her Ensure from once a day to 3 times a day. If further weight loss occurs, consideration was for CT enterography, but again the above appeared to be dietary related. The 07/05/2016: normal fecal elastase of 439 goes against pancreatic insufficiency. Allergies/Medications Allergies: Coded Allergies: NO KNOWN ALLERGIES (03/21/14) Home Med List: Budesonide (Uceris) 9 MG TABDR...ER 1 TAB PO EOD GI (Reported) Famotidine 20 MG TABLET 1 TAB PO BID GI (Reported) Furosemide 20 MG TABLET 1 TAB PO DAILY PRN DIURETIC (Reported) Furosemide (Lasix) 40 MG TABLET 1 TAB PO DAILY leg edema Mesalamine 4 GRAM/60 ML ENEMA 1 E NC DAILY GI (Reported) Mesalamine (Apriso) 0.375 GRAM CAP.ER.24H 2 CAP PO BID GI (Reported) Multivitamin (Multi-Day Vitamins) 1 EACH TABLET 1 TAB PO DAILY SUPPLEMENT ( Reported) Herron-3 Fatty Acids (Herron-3) (Unknown Strength) CAPSULE (Unknown Dose) PO DAILY SUPPLEMENT (Reported) Omeprazole 20 MG CAPSULE.DR 1 CAP PO DAILY GI (Reported) Ondansetron (Zofran Odt) 4 MG TAB.RAPDIS 1 TAB SL TID PRN nausea Potassium Chloride 20 MEQ TAB.ER.PRT 1 TAB PO DAILY SUPPLEMENT (Reported) Vitamin E Mixed (Vitamin E) 400 UNIT TABLET 1 TAB PO BID SUPPLEMENT (Reported ) Current Medications: Current Medications Sig/Timoteo Start time Last Medication Dose Route Stop Time Status Admin Acetaminophen 650 MG Q6P PRN 09/04 2315 AC PO Acetaminophen/ 1 TAB Q6P PRN 09/04 2315 AC Hydrocodone Bitart PO Heparin Sodium 5,000 UNIT Q8 09/04 2310 AC 09/05 (Porcine) SC 0624 Magnesium Oxide 400 MG ONE ONE 09/05 0600 DC 09/05 PO 09/05 0601 0624 Magnesium Oxide 400 MG ONE ONE 09/04 2345 DC PO 09/04 2346 Magnesium Sulfate 1 GM ONCE ONE 09/05 1015 CAN Dextrose/Water 100 ML IV 09/05 1414 Mercaptopurine 50 MG DAILY 09/05 1000 AC 09/05 PO 0942 Mesalamine 4 GM AT BEDTIME 09/05 2200 AC NC Mesalamine 1,000 MG BID 09/05 1000 CAN PO Mesalamine 1.5 GM DAILY 09/05 1000 AC PO Mesalamine 750 MG BID 09/04 2359 DC PO Methylprednisolone 40 MG Q12 09/05 1000 AC 09/05 IV 0935 Methylprednisolone 0 .STK-MED ONE 09/04 2034 DC .ROUTE Methylprednisolone 125 MG ONCE ONE 09/04 2030 DC 09/04 IV 09/04 Non-Formulary 0 SEE ADMIN CRITERIA 02/06 0830 CAN Medication ANY Omeprazole 20 MG DAILY 09/05 1000 AC 09/05 PO 0934 Oxycodone/ 2 TAB Q6P PRN 09/04 2315 AC Acetaminophen PO Potassium Chloride 10 MEQ Q1H 09/05 1015 DC IV 09/05 1116 Potassium Chloride 40 MEQ ONCE ONE 09/05 0800 DC 09/05 PO 09/05 0801 0934 Potassium Chloride 0 .STK-MED ONE 09/04 1917 DC PO Potassium Chloride 60 MEQ ONCE ONE 09/04 191 DC 09/04 PO 09/04 1915 1937 Sodium Chloride 1,000 ML Q20H 09/05 0130 AC 09/05 IV 0321 Sodium Chloride 1,000 ML BOLUS ONE 09/04 183 DC 09/04 IV 09/04 1928 183 Past History Travel History Traveled to [place] past 21 day No Medical History Blood Transfusion Hx: No Neurological: NONE EENT: cataracts Cardiovascular: NONE Respiratory: NONE Gastrointestinal: hiatal hernia, ulcerative colitis, DIVERTICULOSIS RIH Hepatic: cholelithiasis, fatty liver Renal: 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 Musculoskeletal: degen joint disease, osteoarthritis, osteoporosis, R TKR x 2 Psychiatric: NONE Endocrine: osteoporosis Blood Disorders: anemia (mild) Cancer(s): NONE FLORIST/Reproductive: NONE Surgical History Surgical History: hernia repair-inguinal (left), knee replacement (right TKR with redo), LEFT NEPHRECTOMY (donated to late in 1999) LIH repair 2005: R TKR 02/2014: redo R TKR Family History Relations & Conditions If Any: FATHER, , Age 77; Cause: Unknown cause of morbidity or mortality. FH: cancer MOTHER, , Age 96; Cause: Dementia. Psychosocial History Where Do You Live? Home Who Do You Live With? spouse (Smiley Orozco (dtr)), child Services at Home: None Primary Language: [place] Smoking Status: Former Smoker ETOH Use: denies use Illicit Drug Use: denies illicit drug use Living Will? yes Power of Director Of Recreation Therapy/HCP? yes Name of POA/HCP: Pt's 2 dtrs (Smiley Orozco & Juliana Gracia) Other Social History: in 12/2015 (16 yrs after donating L kidney to her ). Lives with daughter, Smiley Orozco. 2 dtrs- (Smiley & Juliana)- [employer]. Ex-25 pk yr cigarette smoker, stopped 1989. No EtOH. No drugs. 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 Functional Ability ADLs Independent: dressing, eating, toileting, bathing. Ambulation: independent IADLs Independent: shopping, housework, finances, food prep, telephone, transportation , medication admin. 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 Review of Systems Constitutional: Reports; weakness & weight loss Denies: chills, diaphoresis, fever, malaise. EENTM: Denies: blurred vision, double vision, visual changes, eye pain, eye drainage, eye tearing, icterus, ear discharge, ear pain, ear redness, hearing changes, nasal congestion, epistaxis, nasal pain, throat pain, throat swelling, mouth pain, tooth pain. Cardiovascular: Reports: peripheral edema (feet B/L)- improving. Denies: chest pain, orthopena, palpitations, syncope. Respiratory: Denies: cough, hemoptysis, orthopnea, short of breath, sputum production, stridor, wheezing. GI: Reports: diarrhea, nausea, bloody stool (scant. Denies: abdminal pain, bloating, constipation, distention, bowel incontinence, melena, change in stool, vomiting, steatorrhea. Genitourinary: Denies: discharge, dysuria, frequency, hematuria, hesitation, nocturia, pain, urgency. Musculoskeletal: Reports: joint pain (R TKR x 2). Denies: back pain, gout, joint swelling, muscle pain, muscle stiffness, neck pain. Skin: Denies: cysts, change in skin color, change in hair/nails, dryness, erythema, jaundice, lesions, lymphangitis, lumps, moles, rash. Neurological/Psychological: Reports; mild anxiety Denies: ataxia, cognitive dysfunction, confusion, depressed, dementia, emotional problems, headache, numbness, paresthesia, pre-existing deficit, petit mal seizures, tingling, tremors, tonic-clonic seizures, unable to move lower ext, unable to move upper ext. Hematologic/Endocrine: Denies: bruising, bleeding, polyuria, polydipsia. Immunologic/Allergic: Denies: splenectomy, HIV/AIDS, lymphadenopathy. All Other Systems: Reviewed and Negative Exam & Diagnostic Data Vital Signs and I&O Vital Signs Date Time Temp Pulse Resp B/P Pulse O2 O2 Flow FiO2 Ox Delivery Rate 09/05 0109 97.7 69 20 118/60 97 Room Air 09/04 2056 97.3 55 16 111/60 98 Room Air 09/04 1825 97 09/04 174 97.1 47 16 106/53 97 Room Air Intake & Output 09/05 Intake Total 1000 Output Total Balance 1000 Intake, IV 1000 Patient 113 lb Weight Physical Exam: Well-developed, slightly malnourished, thin, elderly female, in no apparent distress. Pleasant. Slightly anxious. Sclera anicteric. Conjunctiva pink. Oropharynx clear. No oral thrush. No apthous ulcers. There is no adenopathy, thyromegaly, or JVD. No peripheral stigmata of inflammatory bowel disease or chronic liver disease on exam. No CVA tenderness. N spiders on the anterior chest wall. Breast & pelvc exams: API. Lungs: clear to A&P. Heart exam: regular rate rhythm, S1 and S2, without any murmur. Abdominal exam: normal bowel sounds, soft belly, nontender, without guarding or rebound. Negative Ricketts sign. Small reducible RIH, otherwise without mass. No organomegaly. No fluid shift. No pulsatile mass. *Clinically, without megacolon. Repeat digital rectal exam: deferred, as just done at 05/05/2016: colonoscopy. Extremities: without cyanosis or clubbing. 1+ pitting edema LE B/L, without palpable cords. B/L LE ALPS. Post right TKR x 2. DJD, without acute arthropathy. No rash except for mininmal stasis dermatitis changes LE B/L, L > R (improved). Distal pulses 2+ bilaterally. DTRs 2+ bilaterally. Alert and O x 3. Results Pertinent Lab Results: Laboratory Tests 09/05 Chemistry Sodium (137 - 145 mmol/L) 135 L Potassium (3.5 - 5.1 mmol/L) 3.7 Chloride (98 - 107 mmol/L) 101 Carbon Dioxide (22 - 30 mmol/L) 27 Anion Gap (5 - 16) 7 BUN (7 - 17 mg/dL) 12 Creatinine (0.5 - 1.0 mg/dL) 0.7 Estimated GFR (>60 ml/min) > 60 BUN/Creatinine Ratio (7 - 25 %) 17.1 Phosphorus (2.5 - 4.5 mg/dL) 3.9 Magnesium (1.6 - 2.3 mg/dL) 1.8 Hematology CBC w Diff NO MAN DIFF REQ WBC (4.8 - 10.8 /CUMM) 12.9 H RBC (4.20 - 5.40 /CUMM) 3.83 L Hgb (12.0 - 16.0 G/DL) 10.7 L Hct (37 - 47 %) 32.2 L MCV (81.0 - 99.0 FL) 84.0 MCH (27.0 - 31.0 PG) 28.0 RDW (11.5 - 14.5 %) 15.2 H Plt Count (130 - 400 /CUMM) 357 MPV (7.4 - 10.4 FL) 8.2 Gran % (42.2 - 75.2 %) 91.5 H Lymphocytes % (20.5 - 51.1 %) 4.2 L Monocytes % (1.7 - 9.3 %) 4.2 Eosinophils % (0 - 5 %) 0 Basophils % (0.0 - 2.0 %) 0.1 Absolute Granulocytes (1.4 - 6.5 /CUMM) 11.8 H Absolute Lymphocytes (1.2 - 3.4 /CUMM) 0.5 L Absolute Monocytes (0.10 - 0.60 /CUMM) 0.5 Absolute Eosinophils (0.0 - 0.7 /CUMM) 0 Absolute Basophils (0.0 - 0.2 /CUMM) 0 PUBS MCHC (33.0 - 37.0 G/DL) 33.4 Urines Urine Color (YEL,AMB,STR) YEL Urine Clarity (CLEAR) CLEAR Urine pH (5.0 - 8.0) 6.0 Ur Specific Waldron (1.001 - 1.035) 1.025 Urine Protein (NEG,<30 MG/DL) TRACE H Urine Ketones (NEG) 15 H Urine Nitrite (NEG) NEG Urine Bilirubin (NEG) NEG@ICTO Urine Urobilinogen (0.1 - 1.0 EU/dl) 0.2 Ur Leukocyte Esterase (NEG) SMALL H Ur Microscopic SEDIMENT EXAMINED Urine RBC (0 - 5 /HPF) RARE Urine WBC (0 - 2 /HPF) 3-5 H Ur Epithelial Cells (NONE,FEW) MANY H Hyaline Casts (0/LPF) FEW H Urine Mucus (FEW,NONE) MANY H Urine Hemoglobin (NEG) NEG Urine Glucose (N MG/DL) NEG 09/04 1820 Chemistry Sodium (137 - 145 mmol/L) 134 L Potassium (3.5 - 5.1 mmol/L) 3.0 L Chloride (98 - 107 mmol/L) 96 L Carbon Dioxide (22 - 30 mmol/L) 33 H Anion Gap (5 - 16) 5 BUN (7 - 17 mg/dL) 14 Creatinine (0.5 - 1.0 mg/dL) 0.7 Estimated GFR (>60 ml/min) > 60 BUN/Creatinine Ratio (7 - 25 %) 20.0 Glucose (65 - 99 mg/dL) 79 Calcium (8.4 - 10.2 mg/dL) 7.7 L Magnesium (1.6 - 2.3 mg/dL) 1.8 Total Bilirubin (0.2 - 1.3 mg/dL) 0.7 AST (14 - 36 U/L) 25 ALT (9 - 52 U/L) 37 Alkaline Phosphatase (<127 U/L) 133 H Troponin I (< 0.11 ng/ml) < 0.01 Total Protein (6.3 - 8.2 g/dL) 5.7 L Albumin (3.5 - 5.0 g/dL) 2.2 L Globulin (1.9 - 4.2 gm/dL) 3.5 Albumin/Globulin Ratio (1.1 - 2.2 %) 0.6 L Coagulation PT (9.4 - 12.5 SEC) 13.7 H INR (0.90 - 1.19) 1.31 H APTT (25 - 37 SEC) 29 Hematology CBC w Diff NO MAN DIFF REQ WBC (4.8 - 10.8 /CUMM) 9.8 RBC (4.20 - 5.40 /CUMM) 4.49 Hgb (12.0 - 16.0 G/DL) 12.4 Hct (37 - 47 %) 37.4 MCV (81.0 - 99.0 FL) 83.3 MCH (27.0 - 31.0 PG) 27.6 RDW (11.5 - 14.5 %) 14.6 H Plt Count (130 - 400 /CUMM) 409 H MPV (7.4 - 10.4 FL) 7.9 Gran % (42.2 - 75.2 %) 79.5 H Lymphocytes % (20.5 - 51.1 %) 11.4 L Monocytes % (1.7 - 9.3 %) 8.2 Eosinophils % (0 - 5 %) 0.2 Basophils % (0.0 - 2.0 %) 0.7 Absolute Granulocytes (1.4 - 6.5 /CUMM) 7.8 H Absolute Lymphocytes (1.2 - 3.4 /CUMM) 1.1 L Absolute Monocytes (0.10 - 0.60 /CUMM) 0.8 H Absolute Eosinophils (0.0 - 0.7 /CUMM) 0 Absolute Basophils (0.0 - 0.2 /CUMM) 0.1 PUBS MCHC (33.0 - 37.0 G/DL) 33.2 Imaging/Other Studies: 04/27/2016: *CT ABD & PELVIS W IV CONTRAST 1. Intrathoracic stomach. This alone could cause nausea and pain. 2. Fatty liver. 3. Cholelithiasis. Enlarged gallbladder. 4. Large duodenal diverticulum that seems to mildly compress the distal common bile duct. 5. Findings that would suggest left-sided colitis. Diverticulosis of the sigmoid with mild case of diverticulitis. 6. Solitary right kidney. 7. Portion of the body of the pancreas drawn towards the diaphragmatic hiatus. 05/06/2016: XRY-CHEST XRAY, PA AND LATERAL Mild cardiomegaly. No acute pneumonic process. Large hiatal hernia. 08/11/2016: US-EXT BILAT VENOUS DOPPLER- Negative for DVT. Small left Lehman's cyst. *No imaging studies were obtained on the 09/04/2016: admission. 09/04/2016: EKG- NSR @ 80, borderline LAD, ventricular bigeminy, NSST inferiorly. Assessment/Plan Assessment/Recommendations: 71-year-old female with known ulcerative colitis, diagnosed 05/05/2016 via colonoscopy, with mild to moderate chronic active colitis from the rectum to the transverse colon, without any dysplasia, malignancy, or granuloma. Stains for CMV were negative. She had some nonspecific raised lumpy bumpy areas, suspicious for pseudopolyps. She previously was on inpatient IV Solu-Medrol, and was tapered, then switched to Uceris. She was last seen in the office 2016.At that time, her Uceris had been stopped 07/29/2016. She was maintained on Apriso 0.375g tab 4 tabs daily, as her insurance company stopped her previous mesalamine, Delzicol. She was also on Rowasa enemas 4g Q bedtime. Her symptoms flared off sterids, and her Uceris 9 mg daily was resumed 09/01/2016. *I previously had long discussions with the patient regarding immunosuppressants, such as 6-MP, or biologic agents, including the risks and benefits, but as she was improving, we held off on these, keep in mind her advanced age, which especially can make biologic agents more risky. The patient presented to the [facility] 09/04/2016 at 5:18 p.m., at which point, she was hemodynamically stable (although bradycardic) & afebrile, and planning of a few weeks of nausea, decreased by mouth intake, and mild diarrhea (< 4x/day max), with occasional rectal bleeding, pus & mucus in the stool, which is baseline for the patient. There is also some mild fecal incontinence She did state however that she has lost 40 pounds since 03/2016. *Some of the above is from a large intrathoracic hiatal hernia, for which she is scheduled for a laparoscopic repair by Dr. Dewey later this month, on 09/21/2016, with the caveat that her ulcerative colitis stabilizes prep. She has chronic mild early satiety, attributed to the hiatal hernia. Her reflux symptoms are stable on outpatient Pepcid 20 mg po BID. Omeprazole (PPI) was previously stopped because of low magnesium levels. There is no history of melena. She denies any fevers, chills, symptoms of UTI, URI, abdminal pain, constipation, or obstipation. There is mild tenesmus. She denies any rashes, aside from some stasis dermatitis changes. There are no acute arthralgias, although she has chronic DJD. She denies any recent antibiotics, recent travel, or NSAID use. There is no point source by history. She denies any raw food ingestion. She was given IV Solu-Medrol 125 mg by the ER, along with IV NS & IV potassium. *Some of the patient's low potassium is from outpatient Lasix use, although she saw vascular surgery and her peripheral edema was felt to be from low protein state. 04/27/2016: *CT ABD & PELVIS W IV CONTRAST 1. Intrathoracic stomach. This alone could cause nausea and pain. 2. Fatty liver. 3. Cholelithiasis. Enlarged gallbladder. 4. Large duodenal diverticulum that seems to mildly compress the distal common bile duct. 5. Findings that would suggest left-sided colitis. Diverticulosis of the sigmoid with mild case of diverticulitis. 6. Solitary right kidney. 7. Portion of the body of the pancreas drawn towards the diaphragmatic hiatus. 05/06/2016: XRY-CHEST XRAY, PA AND LATERAL Mild cardiomegaly. No acute pneumonic process. Large hiatal hernia. 08/11/2016: US-EXT BILAT VENOUS DOPPLER- Negative for DVT. Small left Lehman's cyst. 09/04/2016: Admission labs- WBC 9.8 (80% gran/8 gra Ab), H/H 12.4/37.4, normal MCV, PLT 409, Pt 13.7, INr 1.31, PTT 29. glu 79. BUN/Cr 14/0.7, GFR > 60, *K 3.0, HCO3 33, AG 5, Mg 1.8, Ca2+ 7.7, albumin 2.2, globulin 3.5, TBil 0.7, alk phos 133, AST 25, ALT 37, toponon < .01; U/A- clear, yellow, 1.025, 6.0, rare RBC, 3-5 WBC, few bact, many epithelial cells, 15+ ketone, tr protein, negative icto, urobilinogen 0.2, negative nitrite, small esterase. 09/05/2016: WBC 12.9 (post steroids), H/H 10.7/32.2, PLT 357, stable electrolytes except forborderline Na 135, K 3.7, HCO3 27, AG 7, Mg2+ 1.8, PO4 3.9, BUN/Cr 12/0.7, GFR > 60 *No imaging studies were obtained on admission. 09/04/2016: EKG- NSR @ 80, borderline LAD, ventricular bigeminy, NSST inferiorly. She is followed for primary care by Dr. Grady and Dr. 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 Dewey, non-hypertensive, non-diabetic, DJD , osteoporosis, fatty liver, incidental cholelithiasis, incidental duodenal diverticulum, right inguinal hernia, history of hypokalemia and hypomagnesemia, originally seen in inpatient GI consultation at [facility] 04/28/2016, when she was admitted to [facility] 04/27/2016 to 05/02/2016, for diarrhea and an abnormal CAT scan. She was to have seen me in the office in GI consultation a few weeks later , but was admitted for the above. 04/27/2016: CT scan of the abdomen and pelvis with IV contrast- intrathoracic stomach, large hiatal hernia, fatty liver, cholelithiasis, large duodenal diverticulum near a 9 mm CBD, colitis from the hepatic flexure to the sigmoid, solitary right kidney, & fat-containing right inguinal hernia (*see above). *Additionally, the CT was initially read as sigmoid diverticulitis, but in retrospect, there was no diverticulitis, just diverticulosis and the colitis. The patient remotely had right total knee replacement in 12/2005, with redo in 02/2014, and cataract surgery OU. 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 Upon admission 04/27/2016, she had OB-positive stool with hyperkalemia. Please note, 06/18/2002: baseline surgical colonoscopy without biopsies by Dr. Meneses (purged from the computer)- reportedly "normal". The patient is an ex-25 pack year smoker, stopping in 1989. Please note, 04/27/2016: *stool culture, C. difficile, Shiga toxin, Crypto Ag, & Giardia Ag- all negative. The patient was initially treated with Ceftriaxone and Flagyl for questionable sigmoid diverticulitis then, however the antibiotics were stopped in 2-3 days, after re-reading the CT with radiology. 04/27/2016: Positive lactoferrin. 04/29/2016: ESR 1, elevated CRP 17.3, normal TFTs with normal TSH. Admission labs 04/27/2016: WBC 10.1 (borderline left shift), H/H 14.1/42.2 (hemoconcentrated), normal MCV, PLT 395K, BUN/Cr 16/0.7, GFR > 60, potassium 2.9, normal LFTs, except decreased albumin 2.6, globulin 3.2. 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 04/29/2016: normal IgA 123, DGP Ab- negative, low carotene < 2. 04/30/2016: tTG Ab- negative. There is no family history of any GI malignancy, GI disease, or inherited liver disease. She was discharged from [facility] to home 05/02/2016. 05/05/2016: *Outpatient combined baseline EGD to the third portion of the duodenum (hiatal hernia evaluation), plus followup colonoscopy to the terminal ileum with a pediatric colonoscope (for colitis)- random small bowel biopsy second and third portions of the duodenum- negative, large periampullary duodenal diverticulum, multiple superficial gastric erosions with tiny eschars- biopsies with acute erosive gastritis, H. pylori- negative, large hiatal hernia, Z-line at 30 cm, with mild to moderate GERD on biopsies. The patient appeared to have pancolitis endoscopically. There was no gross backwash ileitis. The colitis seemed mild to moderate in the rectum, more severe from the sigmoid to the upper right colon, then diminishing to the cecum, endoscopically. There appeared to be some nonspecific lumpy bumpy areas in a patchy fashion, probably representing pseudopolyps, and this will have to be readdressed after treatment, mild left sided diverticula, mild internal hemorrhoids. *Colon biopsy stains for CMV- negative. Biopsies of terminal ileum, cecum, and right colon- negative. Biopsies of the transverse colon and left colon- mild chronic active colitis. Biopsies of the sigmoid- moderate chronic active colitis. Biopsy of the rectum- mild chronic active colitis, without dysplasia or malignancy. There were no granulomas. The patient was then readmitted to [facility] 1 day postop, from 2015 to 05/10/2016 with increased diarrhea, hypokalemia, hypomagnesemia and dehydration. *Please note, 05/05/2016: normal fasting gastrin 17, *QuantiFeron TB testing- indeterminate (low anergy), TPMT genotype and phenotype- normal genotype and normal enzyme activity; Hep A Ab, Hep Bs Ag, Hep B core Ab, & Hep C Ab- all negative, HIV- negative. 05/06/2016: *Chest x-ray- negative (with regard to indeterminate QuantiFeron testing), except for HH. Regarding the peripheral edema, 05/06/2016: Doppler LE B/L- negative for DVT. She was put on IV Solu Medrol 40 mg BID, with marked improvement. This was switched to Prednisone 30 mg twice a day, Delzicol 400 mg tablet 3 tabs 3 times a day, plus Imodium as needed. The patient was already on Fosamax. She was initially put on PPI for the gastric erosions, however this was switched to Pepcid because of the low magnesium. However, she was put back on Omeprazole prior to discharge by the housestaff. Ms. Surekha Orozco returned to the office 08/02/2016, accompanied by her sister- in-law, Angela, last in the office 05/20/2016. There was no postprandial pain to suggest intestinal angina. Please note, recent labs show that the patient was mildly hypothyroid, not hyperthyroid, with regard to the weight loss. She has erroneously continued her Omeprazole in addition to the Pepcid 20 mg BID. The Omeprazole was supposed to have been stopped last visit 05/20/2016, because of the low magnesium levels, which were felt to be mostly from diarrhea and from her diuretics. GI labs 05/24/2016: WBC 9.9, H/H 10.9/33.3, normal MCV, PLT 299, ESR 15, CRP 0.7, normal CMP except for mild contraction alkalosis and mild malnutrition, with albumin 2.9, globulin 2.8, other LFTs normal. 07/05/2016: normal fecal elastase 439 obtained for weight loss, going against pancreatic insufficiency. Labs per PMD 07/05/2016: WBC 6.3, H/H 12.4/38.3, PLT 356, ESR 5, normal CMP except albumin 2.6, globulin 3.4 with other LFTs negative, borderline elevated TSH 4.94, normal FT4 1.46, magnesium 1.6. The patient was stable off the Uceris, when last in the office 08/02/2016. She had not yet been vaccinated against Hepatitis A and B. She never went for he Hp Bs Ab. Assuming she was not immune, she was again told to follow up with her PMD to be semi-electively vaccinated against both Hepatitis A and B, in case more heavy duty immunosuppressants, such as 6MP, and/or biologic agents are needed. *The risk of biologic agents, immunosuppressants and/or steroids were previously discussed with the patient and include but are not limited to diabetes, hypertension, peptic ulcer disease, fluid overload, immunosuppression, myopathy, adrenal insufficiency, AVN, osteoporosis (which she already has), cataracts, pancytopenia, alopecia, glaucoma, TB, lymphoma, skin cancer, malignancy, hepatotoxicity, infusion reaction, lupus-like syndrome, myelosuppression, pancreatitis and/or opportunistic infections. She is agreeable to these if needed. When last in the office 08/02/2016, I advised a repeat colonoscopy with a pediatric colonoscope with chromoendoscopy in 09/2016 to reassess what appeared to be lumpy bumpy areas that are probably pseudopolyps. I also advised repeating an EGD at that time, in view of the numerous diffuse gastric erosions with eschars, which were borderline shallow ulcerations. The risks & benefits of EGD/colonoscopy were again discussed with the patient, and she wished to proceed. She was told to increase her Ensure from once a day to 3 times a day. If further weight loss occurs, consideration was for CT enterography, but again the above appeared to be dietary related. The 07/05/2016: normal fecal elastase of 439 goes against pancreatic insufficiency.\\ *The patient's ulcerative colitis has flared off of Uceris. She has previously responded to IV steroids, but these are used to induce remission, not maintain remission. Because of her advanced age, I previously had held off on immunosuppressants such as 6-MP, or biologic agents, however it is clear that she will need at least some of these. The risks and benefits of these have been discussed with the patient, she wishes to proceed, if needed. Additionally, her malnutrition is due in part to her large hiatal hernia, which needs to be surgically corrected after her ulcerative colitis stabilizes. Her magnesium is currently stable (off PPI). Her potassium has been repleted. Some of her electrolyte abnormalities are from outpatient Lasix, however her peripheral edema is due to protein losing enteropathy, not from CHF clinically (although there is no recent echocardiogram in the computer). SUGGEST: *Clears po & advance diet as tolerated. *Nutrition consult re: supplements. *IV Solu-Medrol 40 mg Q12. *The patient may use her Apriso 0.375 g tab-4 tabs po daily. *Rowasa enema 4g pr Q bedtime. *Start 6MP 50 mg po daily (this will take 2-3 months to achieve therapeutic levels), with consideration for outpatient biologic agents. *Imodium as needed, watching for signs of megacolon. Serial abdominal exams. *Check 2-way abdominal films (doubt meacolon). Will defer TPN for now, but this might be re-considered, depending on clinical course. *Check prealbumin, ESR, CRP. Check Hep Bs Ab (if not immune, advise semi-elective Hep A & B vaccinations. *Check stool C&S, C. difficile, & Shiga toxin. DVT prophylaxis with ALPS. Hold Lasix. Follow-up electrolytes (replete K+). *Zofran 4 mg IV Q6h as needed. May carefully continue Omeprazle 20 mg daily, but if magnesium drops, would switch PPI to H2B. Replete Mg2+ parenterally, as IV Mg2+ can exacerbate diarrhea. Check I/O's. Eventual hiatal hernia repair (tentatively scheduled by Dr. Dewey for 09/21/2016), with the caveat that the patient's ulcerative clitis is under beter control by then. Eventual repeat EGD/ colonoscopy with the pediatric colonoscope & chromoendoscopy in 09/2016, to reassess the lumpy bumpy areas that are probably pseudopolyps, as well as the numerus diffuse gastric erosions with eschars/borderline shallow ulcratons. Consideration for repeat CTE, depending on results of 2-way abdominal films & clinical course. The above findings and recommendations were discussed with the medical house staff and previously with Dr. Dewey. Problem List: 1. Ulcerative colitis 2. Weight loss 3. Failure to thrive 4. Malnutrition 5. Diarrhea 6. Nausea 7. Hypokalemia 8. Hypokalemia 9. Hiatal hernia 10. Diverticulosis of colon 11. Gastritis 12. Fatty liver 13. Cholelithiasis 14. Duodenal diverticulum 15. Right inguinal hernia Copies To: GUALBERTO ALANIS,TRAVON Espinoza; MIRIAM ALANIS,BENNETT; ELISABETH ALANIS,JAY Piedra; JAYDEN VILLARREAL MD,JOSUE Consult Acknowledgment - Thank you for your consult request.
[2016-09-05 09:06] VITALS: BP 122/60
[2016-09-05 09:28] LABS: ABSOLUTE BASOPHIL COUNT 0 /CUMM (0.0-0.2); ABSOLUTE EOSINOPHIL COUNT 0 /CUMM (0.0-0.7); ABSOLUTE GRANULOCYTE CT 11.8 /CUMM (1.4-6.5); ABSOLUTE LYMPH COUNT 0.5 /CUMM (1.2-3.4); ABSOLUTE MONOCYTE COUNT 0.5 /CUMM (0.10-0.60); BASOPHIL % 0.1 % (0.0-2.0); EOSINOPHIL % 0 % (0-5); MEAN CORPUSCULAR HGB CONC 33.4 G/DL (33.0-37.0); MEAN PLATELET VOLUME 8.2 FL (7.4-10.4); PLATELET COUNT 357 /CUMM (130-400); RBC DISTRIBUTION WIDTH 15.2 % (11.5-14.5); RED BLOOD CELL CT 3.83 /CUMM (4.20-5.40); WHITE BLOOD CELL COUNT 12.9 /CUMM (4.8-10.8)
--- NOTE | 2016-09-05 09:46 | PN- Att Addend ---
Attending Addendum Attending Brief Note Patient denies abdominal pain but has persistent bloody and mucus diarrhea General Appearance: Alert, No Acute Distress Skin: Grossly normal HEENT: PEERLA Neck: Supple, No JVD Cardiovascular: Regular Rate, Normal S1, Normal S2, No Murmurs Lungs: Clear to Auscultation, Normal Air Movement Abdomen: Normal Bowel Sounds, Soft, No Tenderness Neurological: Normal Speech, Strength at 5/5 X4 Ext, Cranial Nerves 3-12 NL, Reflexes 2+ Extremities: No Clubbing, No Cyanosis, No Edema Vascular: Normal Pulses Assessment 71-year-old with history of ulcerative colitis presenting with bloody and mucus diarrhea without any associated abdominal pain. She is currently being admitted for flareup of ulcerative colitis on IV Solu-Medrol. Management will be as per GI. Plan Ulcerative colitis management as per GI Advance diet as tolerated May continue other home medications DVT prophylaxis Current Medications Sig/Timoteo Start time Last Medication Dose Route Stop Time Status Admin Acetaminophen 650 MG Q6P PRN 09/04 2314 AC PO Acetaminophen/ 1 TAB Q6P PRN 09/04 2314 AC Hydrocodone Bitart PO Heparin Sodium 5,000 UNIT Q8 09/04 2310 AC 09/05 (Porcine) SC 0624 Magnesium Oxide 400 MG ONE ONE 09/05 0600 DC 09/05 PO 09/05 0601 0624 Magnesium Oxide 400 MG ONE ONE 09/04 2345 DC PO 09/04 234 Mercaptopurine 50 MG DAILY 09/05 1000 AC PO Mesalamine 4 GM AT BEDTIME 09/05 2200 AC RI Mesalamine 1,000 MG BID 09/05 1000 CAN PO Mesalamine 750 MG BID 09/04 2359 DC PO Methylprednisolone 40 MG Q12 09/05 1000 AC IV Methylprednisolone 0 .STK-MED ONE 09/04 2034 DC .ROUTE Methylprednisolone 125 MG ONCE ONE 09/04 2029 DC 09/04 IV 09/04 Non-Formulary 0 SEE ADMIN CRITERIA 09/05 829 UNVr Medication ANY Omeprazole 20 MG DAILY 09/05 1000 AC PO Oxycodone/ 2 TAB Q6P PRN 09/04 2315 AC Acetaminophen PO Potassium Chloride 40 MEQ ONCE ONE 09/05 0800 DC PO 09/05 0801 Potassium Chloride 0 .STK-MED ONE 09/04 1917 DC PO Potassium Chloride 60 MEQ ONCE ONE 09/04 1914 DC 09/04 PO 09/04 1915 1937 Sodium Chloride 1,000 ML Q20H 09/05 0130 AC 09/05 IV 0321 Sodium Chloride 1,000 ML BOLUS ONE 09/04 183 DC 09/04 IV 09/04 1928 183 Laboratory Tests 09/05 Chemistry Sodium Pending Potassium Pending Chloride Pending Carbon Dioxide Pending Anion Gap Pending BUN Pending Creatinine Pending BUN/Creatinine Ratio Pending Phosphorus Pending Magnesium Pending Hematology CBC w Diff Pending WBC Pending RBC Pending Hgb Pending Hct Pending MCV Pending MCH Pending RDW Pending Plt Count Pending MPV Pending PUBS MCHC Pending Urines Urine Color (YEL,AMB,STR) YEL Urine Clarity (CLEAR) CLEAR Urine pH (5.0 - 8.0) 6.0 Ur Specific Marshall (1.001 - 1.035) 1.025 Urine Protein (NEG,<30 MG/DL) TRACE H Urine Ketones (NEG) 15 H Urine Nitrite (NEG) NEG Urine Bilirubin (NEG) NEG@ICTO Urine Urobilinogen (0.1 - 1.0 EU/dl) 0.2 Ur Leukocyte Esterase (NEG) SMALL H Ur Microscopic SEDIMENT EXAMINED Urine RBC (0 - 5 /HPF) RARE Urine WBC (0 - 2 /HPF) 3-5 H Ur Epithelial Cells (NONE,FEW) MANY H Hyaline Casts (0/LPF) FEW H Urine Mucus (FEW,NONE) MANY H Urine Hemoglobin (NEG) NEG Urine Glucose (N MG/DL) NEG 09/04 1819 Chemistry Sodium (137 - 145 mmol/L) 134 L Potassium (3.5 - 5.1 mmol/L) 3.0 L Chloride (98 - 107 mmol/L) 96 L Carbon Dioxide (22 - 30 mmol/L) 33 H Anion Gap (5 - 16) 5 BUN (7 - 17 mg/dL) 14 Creatinine (0.5 - 1.0 mg/dL) 0.7 Estimated GFR (>60 ml/min) > 60 BUN/Creatinine Ratio (7 - 25 %) 20.0 Glucose (65 - 99 mg/dL) 79 Calcium (8.4 - 10.2 mg/dL) 7.7 L Magnesium (1.6 - 2.3 mg/dL) 1.8 Total Bilirubin (0.2 - 1.3 mg/dL) 0.7 AST (14 - 36 U/L) 25 ALT (9 - 52 U/L) 37 Alkaline Phosphatase (<127 U/L) 133 H Troponin I (< 0.11 ng/ml) < 0.01 Total Protein (6.3 - 8.2 g/dL) 5.7 L Albumin (3.5 - 5.0 g/dL) 2.2 L Globulin (1.9 - 4.2 gm/dL) 3.5 Albumin/Globulin Ratio (1.1 - 2.2 %) 0.6 L Coagulation PT (9.4 - 12.5 SEC) 13.7 H INR (0.90 - 1.19) 1.31 H APTT (25 - 37 SEC) 29 Hematology CBC w Diff NO MAN DIFF REQ WBC (4.8 - 10.8 /CUMM) 9.8 RBC (4.20 - 5.40 /CUMM) 4.49 Hgb (12.0 - 16.0 G/DL) 12.4 Hct (37 - 47 %) 37.4 MCV (81.0 - 99.0 FL) 83.3 MCH (27.0 - 31.0 PG) 27.6 RDW (11.5 - 14.5 %) 14.6 H Plt Count (130 - 400 /CUMM) 409 H MPV (7.4 - 10.4 FL) 7.9 Gran % (42.2 - 75.2 %) 79.5 H Lymphocytes % (20.5 - 51.1 %) 11.4 L Monocytes % (1.7 - 9.3 %) 8.2 Eosinophils % (0 - 5 %) 0.2 Basophils % (0.0 - 2.0 %) 0.7 Absolute Granulocytes (1.4 - 6.5 /CUMM) 7.8 H Absolute Lymphocytes (1.2 - 3.4 /CUMM) 1.1 L Absolute Monocytes (0.10 - 0.60 /CUMM) 0.8 H Absolute Eosinophils (0.0 - 0.7 /CUMM) 0 Absolute Basophils (0.0 - 0.2 /CUMM) 0.1 PUBS MCHC (33.0 - 37.0 G/DL) 33.2 Vital Signs Date Time Temp Pulse Resp B/P Pulse O2 O2 Flow FiO2 Ox Delivery Rate 09/05 0906 98.8 70 20 122/60 92 Room Air 02/ 0109 97.7 69 20 118/60 97 Room Air 09/047 97.3 55 16 111/60 98 Room Air 09/04 1825 97 09/04 174 97.1 47 16 106/53 97 Room Air
--- NOTE | 2016-09-05 09:46 | Admission Certification ---
Admission Certification Certification Statement - As attending physician, I certify that at the time of - admission, based on clinical presentation, severity of - symptoms, need for further diagnostic testing and - therapeutic interventions, and risk of adverse outcomes - without in-hospital treatment, in my clinical assessment, - this patient requires an acute hospital stay for a minimum - of two nights or longer. I have also considered psychsocial - factors such as support system, advanced age, financial - issues, cognitive issues, and failed out-patient treatments, - past re-admission history, safety of patient, and lack of - compliance as applicable. Specific rationale supporting this admission is: Ulcerative colitis
[2016-09-05 10:47] LABS: HEMATOCRIT 32.2 % (37-47)
[2016-09-05 11:54] LABS: GRANULOCYTE % 91.5 % (42.2-75.2)
--- NOTE | 2016-09-05 21:18 | RADIOLOGY REPORT ---
EXAMINATION: XR ABDOMEN MULTIPLE VIEWS CLINICAL INDICATION: Ulcerative colitis. Evaluate for megacolon. COMPARISON: CT abdomen and pelvis with contrast 04/27/2016. TECHNIQUE: Supine and erect views of the abdomen and pelvis. FINDINGS: Supine and erect views of the abdomen and pelvis demonstrate multiple air filled loops of bowel throughout the abdomen and pelvis. These loops of bowel appear to correspond to loops of small and large bowel and appear to be normal in caliber. The bowel gas pattern is nonspecific, without findings indicative of obstruction or ileus. There is a minimal amount of retained stool within the colon. No free air is identified beneath the bilateral hemidiaphragms. The visualized bilateral lung bases are clear. There is a left retrocardiac opacity corresponding to the patient's known large hiatal hernia. Multiple stones are again visualized in the region of the gallbladder. No acute osseous abnormality. Degenerative changes involving the lower lumbosacral spine. Mild degenerative changes of the bilateral hip joints. IMPRESSION: Nonspecific bowel gas pattern, without findings indicative of obstruction or ileus. No radiographic findings suggestive of megacolon in the setting of ulcerative colitis.
[2016-09-06 00:02] VITALS: BP 120/62
--- NOTE | 2016-09-06 06:30 | PN- Housestaff ---
Subjective Follow-up For: UC flare Subjective: Patient seen and examined, resting comfortably in her hospital bed. Handeled diet well, nausea subsided, continues to have diarrhea. Review of Systems Constitutional: Reports: see HPI. Objective Last 24 Hrs of Vital Signs/I&O Vital Signs Date Time Temp Pulse Resp B/P Pulse O2 O2 Flow FiO2 Ox Delivery Rate 09/06 0002 98.4 70 20 120/62 93 Room Air 09/05 0906 98.8 70 20 122/60 92 Room Air Intake & Output 09/06 0809/06 0000 09/05 1600 Intake Total 350 1020 Output Total 550 450 Balance -200 570 Intake, IV 150 300 Intake, Oral 200 720 Number 1 3 Bowel Movements Output, Urine 550 450 Physical Exam General Appearance: Alert, Oriented X3, Cooperative HEENT: Atraumatic, PERRLA, EOMI Cardiovascular: Regular Rate, Normal S1, Normal S2 Lungs: Clear to Auscultation, Normal Air Movement Abdomen: Normal Bowel Sounds, Soft, No Tenderness Extremities: No Clubbing, No Cyanosis, No Edema Current Medications: Current Medications Sig/Timoteo Start time Last Medication Dose Route Stop Time Status Admin Acetaminophen 650 MG Q6P PRN 09/04 2315 AC PO Acetaminophen/ 1 TAB Q6P PRN 09/04 2315 AC Hydrocodone Bitart PO Heparin Sodium 5,000 UNIT Q8 09/04 2310 AC 09/05 (Porcine) SC 2058 Loperamide HCl 2 MG Q6P PRN 09/05 1515 AC PO Magnesium Sulfate 1 GM ONCE ONE 09/05 1015 CAN Dextrose/Water 100 ML IV 09/05 1414 Mercaptopurine 50 MG DAILY 09/05 1000 AC 09/05 PO 0942 Mesalamine 4 GM AT BEDTIME 09/05 2200 AC WI Mesalamine 1,000 MG BID 09/05 1000 CAN PO Mesalamine 1.5 GM DAILY 09/05 1000 AC PO Methylprednisolone 40 MG Q12 09/05 1000 AC 09/05 IV 205 Non-Formulary 0 SEE ADMIN CRITERIA 09/05 0830 CAN Medication ANY Omeprazole 20 MG DAILY 09/05 1000 AC 09/05 PO 0934 Oxycodone/ 2 TAB Q6P PRN 09/04 2315 AC Acetaminophen PO Patient Medication 1 ED .STK-MED ONE 09/05 1425 DC Teaching ED 09/05 1426 Potassium Chloride 10 MEQ Q1H 09/05 1015 DC IV 09/05 1116 Potassium Chloride 40 MEQ ONCE ONE 09/05 0800 DC 09/05 PO 09/05 0801 0934 Sodium Chloride 1,000 ML Q20H 09/05 0130 AC 09/05 IV 0321 Last 24 Hrs of Lab/Woody Results Last 24 Hrs of Labs/Mics: Laboratory Tests 09/05/16 0810: Anion Gap 7, Estimated GFR > 60, BUN/Creatinine Ratio 17.1, Phosphorus 3.9, Magnesium 1.8, CBC w Diff NO MAN DIFF REQ, RBC 3.83 L, MCV 84.0, MCH 28.0, RDW 15.2 H, MPV 8.2, Gran % 91.5 H, Lymphocytes % 4.2 L, Monocytes % 4.2, Eosinophils % 0, Basophils % 0.1, Absolute Granulocytes 11.8 H, Absolute Lymphocytes 0.5 L, Absolute Monocytes 0.5, Absolute Eosinophils 0, Absolute Basophils 0, PUBS MCHC 33.4 Microbiology 09/05 1603 STOOL: Clostridium difficile Toxin A & B - RECD 09/05 1603 STOOL: Stool Culture - RECD Orders Radiology Findings: ab xray- IMPRESSION: Nonspecific bowel gas pattern, without findings indicative of obstruction or ileus. No radiographic findings suggestive of megacolon in the setting of ulcerative colitis. Assessment/Plan Assessment: Assessment- 1. Ulcerative colitis flareup/chronic diarrhea 2. Weight loss 3. Protein malnutrition 4. Nausea and vomiting Plan- Continue IV Solu-Medrol bid, mesalamine, 5-MP She is on clear liquid diet, if she is able to tolerate, will discontinue IV fluids GI recs appreciated Continue pain meds per EMR Stool studies pending Her nausea and vomiting seems to have been alleviated Out of bed to chair Problem List: 1. Gastritis 2. Diarrhea 3. Weight loss 4. Failure to thrive Pain Ratin Pain Location: none Pain Goal: Pain 4 or less Pain Plan: per emr Tomorrow's Labs & Rationales: per emr
--- NOTE | 2016-09-06 07:20 | PN- Gastroenterology ---
Assessment/Plan Assessment/Recommendations: 71-year-old female with known ulcerative colitis, diagnosed 05/05/2016 via colonoscopy, with mild to moderate chronic active colitis from the rectum to the transverse colon, without any dysplasia, malignancy, or granuloma. Stains for CMV were negative. She had some nonspecific raised lumpy bumpy areas, suspicious for pseudopolyps. She previously was on inpatient IV Solu-Medrol, and was tapered, then switched to Uceris. She was last seen in the office 2016.At that time, her Uceris had been stopped 07/29/2016. She was maintained on Apriso 0.375g tab 4 tabs daily, as her insurance company stopped her previous mesalamine, Delzicol. She was also on Rowasa enemas 4g Q bedtime. Her symptoms flared off sterids, and her Uceris 9 mg daily was resumed 09/01/2016. *I previously had long discussions with the patient regarding immunosuppressants, such as 6-MP, or biologic agents, including the risks and benefits, but as she was improving, we held off on these, keep in mind her advanced age, which especially can make biologic agents more risky. The patient presented to the [facility] 09/04/2016 at 5:18 p.m., at which point, she was hemodynamically stable (although bradycardic) & afebrile, and planning of a few weeks of nausea, decreased by mouth intake, and mild diarrhea (< 4x/day max), with occasional rectal bleeding, pus & mucus in the stool, which is baseline for the patient. There is also some mild fecal incontinence She did state however that she has lost 40 pounds since 03/2016. *Some of the above is from a large intrathoracic hiatal hernia, for which she is scheduled for a laparoscopic repair by Dr. Dewey later this month, on 09/21/2016, with the caveat that her ulcerative colitis stabilizes prep. She has chronic mild early satiety, attributed to the hiatal hernia. Her reflux symptoms are stable on outpatient Pepcid 20 mg po BID. Omeprazole (PPI) was previously stopped because of low magnesium levels. There is no history of melena. She denies any fevers, chills, symptoms of UTI, URI, abdminal pain, constipation, or obstipation. There is mild tenesmus. She denies any rashes, aside from some stasis dermatitis changes. There are no acute arthralgias, although she has chronic DJD. She denies any recent antibiotics, recent travel, or NSAID use. There is no point source by history. She denies any raw food ingestion. She was given IV Solu-Medrol 125 mg by the ER, along with IV NS & IV potassium. *Some of the patient's low potassium is from outpatient Lasix use, although she saw vascular surgery and her peripheral edema was felt to be from low protein state. 04/27/2016: *CT ABD & PELVIS W IV CONTRAST 1. Intrathoracic stomach. This alone could cause nausea and pain. 2. Fatty liver. 3. Cholelithiasis. Enlarged gallbladder. 4. Large duodenal diverticulum that seems to mildly compress the distal common bile duct. 5. Findings that would suggest left-sided colitis. Diverticulosis of the sigmoid with mild case of diverticulitis. 6. Solitary right kidney. 7. Portion of the body of the pancreas drawn towards the diaphragmatic hiatus. 05/06/2016: XRY-CHEST XRAY, PA AND LATERAL Mild cardiomegaly. No acute pneumonic process. Large hiatal hernia. 08/11/2016: US-EXT BILAT VENOUS DOPPLER- Negative for DVT. Small left Lehman's cyst. 09/04/2016: Admission labs- WBC 9.8 (80% gran/8 gra Ab), H/H 12.4/37.4, normal MCV, PLT 409, Pt 13.7, INr 1.31, PTT 29. glu 79. BUN/Cr 14/0.7, GFR > 60, *K 3.0, HCO3 33, AG 5, Mg 1.8, Ca2+ 7.7, albumin 2.2, globulin 3.5, TBil 0.7, alk phos 133, AST 25, ALT 37, toponon < .01; U/A- clear, yellow, 1.025, 6.0, rare RBC, 3-5 WBC, few bact, many epithelial cells, 15+ ketone, tr protein, negative icto, urobilinogen 0.2, negative nitrite, small esterase. 09/05/2016: WBC 12.9 (post steroids), H/H 10.7/32.2, PLT 357, stable electrolytes except forborderline Na 135, K 3.7, HCO3 27, AG 7, Mg2+ 1.8, PO4 3.9, BUN/Cr 12/0.7, GFR > 60 *No imaging studies were obtained on admission. 09/04/2016: EKG- NSR @ 80, borderline LAD, ventricular bigeminy, NSST inferiorly. She is followed for primary care by Dr. Grady and Dr. Renee, for GENER[facility]ENT by Dr. Gonzalez, and for surgery by Dr. Dewey, non-hypertensive, non-diabetic, DJD , osteoporosis, fatty liver, incidental cholelithiasis, incidental duodenal diverticulum, right inguinal hernia, history of hypokalemia and hypomagnesemia, originally seen in inpatient GI consultation at [facility] 04/28/2016, when she was admitted to [facility] 04/27/2016 to 05/02/2016, for diarrhea and an abnormal CAT scan. She was to have seen me in the office in GI consultation a few weeks later , but was admitted for the above. 04/27/2016: CT scan of the abdomen and pelvis with IV contrast- intrathoracic stomach, large hiatal hernia, fatty liver, cholelithiasis, large duodenal diverticulum near a 9 mm CBD, colitis from the hepatic flexure to the sigmoid, solitary right kidney, & fat-containing right inguinal hernia (*see above). *Additionally, the CT was initially read as sigmoid diverticulitis, but in retrospect, there was no diverticulitis, just diverticulosis and the colitis. The patient remotely had right total knee replacement in 12/2005, with redo in 02/2014, and cataract surgery OU. 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 Upon admission 04/27/2016, she had OB-positive stool with hyperkalemia. Please note, 06/18/2002: baseline surgical colonoscopy without biopsies by Dr. Meneses (purged from the computer)- reportedly "normal". The patient is an ex-25 pack year smoker, stopping in 1989. Please note, 04/27/2016: *stool culture, C. difficile, Shiga toxin, Crypto Ag, & Giardia Ag- all negative. The patient was initially treated with Ceftriaxone and Flagyl for questionable sigmoid diverticulitis then, however the antibiotics were stopped in 2-3 days, after re-reading the CT with radiology. 04/27/2016: Positive lactoferrin. 04/29/2016: ESR 1, elevated CRP 17.3, normal TFTs with normal TSH. Admission labs 04/27/2016: WBC 10.1 (borderline left shift), H/H 14.1/42.2 (hemoconcentrated), normal MCV, PLT 395K, BUN/Cr 16/0.7, GFR > 60, potassium 2.9, normal LFTs, except decreased albumin 2.6, globulin 3.2. 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 04/29/2016: normal IgA 123, DGP Ab- negative, low carotene < 2. 04/30/2016: tTG Ab- negative. There is no family history of any GI malignancy, GI disease, or inherited liver disease. She was discharged from [facility] to home 05/02/2016. 05/05/2016: *Outpatient combined baseline EGD to the third portion of the duodenum (hiatal hernia evaluation), plus followup colonoscopy to the terminal ileum with a pediatric colonoscope (for colitis)- random small bowel biopsy second and third portions of the duodenum- negative, large periampullary duodenal diverticulum, multiple superficial gastric erosions with tiny eschars- biopsies with acute erosive gastritis, H. pylori- negative, large hiatal hernia, Z-line at 30 cm, with mild to moderate GERD on biopsies. The patient appeared to have pancolitis endoscopically. There was no gross backwash ileitis. The colitis seemed mild to moderate in the rectum, more severe from the sigmoid to the upper right colon, then diminishing to the cecum, endoscopically. There appeared to be some nonspecific lumpy bumpy areas in a patchy fashion, probably representing pseudopolyps, and this will have to be readdressed after treatment, mild left sided diverticula, mild internal hemorrhoids. *Colon biopsy stains for CMV- negative. Biopsies of terminal ileum, cecum, and right colon- negative. Biopsies of the transverse colon and left colon- mild chronic active colitis. Biopsies of the sigmoid- moderate chronic active colitis. Biopsy of the rectum- mild chronic active colitis, without dysplasia or malignancy. There were no granulomas. The patient was then readmitted to [facility] 1 day postop, from 2015 to 05/10/2016 with increased diarrhea, hypokalemia, hypomagnesemia and dehydration. *Please note, 05/05/2016: normal fasting gastrin 17, *QuantiFeron TB testing- indeterminate (low anergy), TPMT genotype and phenotype- normal genotype and normal enzyme activity; Hep A Ab, Hep Bs Ag, Hep B core Ab, & Hep C Ab- all negative, HIV- negative. 05/06/2016: *Chest x-ray- negative (with regard to indeterminate QuantiFeron testing), except for HH. Regarding the peripheral edema, 05/06/2016: Doppler LE B/L- negative for DVT. She was put on IV Solu Medrol 40 mg BID, with marked improvement. This was switched to Prednisone 30 mg twice a day, Delzicol 400 mg tablet 3 tabs 3 times a day, plus Imodium as needed. The patient was already on Fosamax. She was initially put on PPI for the gastric erosions, however this was switched to Pepcid because of the low magnesium. However, she was put back on Omeprazole prior to discharge by the housestaff. Ms. Surekha Orozco returned to the office 08/02/2016, accompanied by her sister- in-law, Angela, last in the office 05/20/2016. There was no postprandial pain to suggest intestinal angina. Please note, recent labs show that the patient was mildly hypothyroid, not hyperthyroid, with regard to the weight loss. She has erroneously continued her Omeprazole in addition to the Pepcid 20 mg BID. The Omeprazole was supposed to have been stopped last visit 05/20/2016, because of the low magnesium levels, which were felt to be mostly from diarrhea and from her diuretics. GI labs 05/24/2016: WBC 9.9, H/H 10.9/33.3, normal MCV, PLT 299, ESR 15, CRP 0.7, normal CMP except for mild contraction alkalosis and mild malnutrition, with albumin 2.9, globulin 2.8, other LFTs normal. 07/05/2016: normal fecal elastase 439 obtained for weight loss, going against pancreatic insufficiency. Labs per PMD 07/05/2016: WBC 6.3, H/H 12.4/38.3, PLT 356, ESR 5, normal CMP except albumin 2.6, globulin 3.4 with other LFTs negative, borderline elevated TSH 4.94, normal FT4 1.46, magnesium 1.6. The patient was stable off the Uceris, when last in the office 08/02/2016. She had not yet been vaccinated against Hepatitis A and B. She never went for he Hp Bs Ab. Assuming she was not immune, she was again told to follow up with her PMD to be semi-electively vaccinated against both Hepatitis A and B, in case more heavy duty immunosuppressants, such as 6MP, and/or biologic agents are needed. *The risk of biologic agents, immunosuppressants and/or steroids were previously discussed with the patient and include but are not limited to diabetes, hypertension, peptic ulcer disease, fluid overload, immunosuppression, myopathy, adrenal insufficiency, AVN, osteoporosis (which she already has), cataracts, pancytopenia, alopecia, glaucoma, TB, lymphoma, skin cancer, malignancy, hepatotoxicity, infusion reaction, lupus-like syndrome, myelosuppression, pancreatitis and/or opportunistic infections. She is agreeable to these if needed. When last in the office 08/02/2016, I advised a repeat colonoscopy with a pediatric colonoscope with chromoendoscopy in 09/2016 to reassess what appeared to be lumpy bumpy areas that are probably pseudopolyps. I also advised repeating an EGD at that time, in view of the numerous diffuse gastric erosions with eschars, which were borderline shallow ulcerations. The risks & benefits of EGD/colonoscopy were again discussed with the patient, and she wished to proceed. She was told to increase her Ensure from once a day to 3 times a day. If further weight loss occurs, consideration was for CT enterography, but again the above appeared to be dietary related. The 07/05/2016: normal fecal elastase of 439 goes against pancreatic insufficiency.\\ *The patient's ulcerative colitis has flared off of Uceris. She has previously responded to IV steroids, but these are used to induce remission, not maintain remission. Because of her advanced age, I previously had held off on immunosuppressants such as 6-MP, or biologic agents, however it is clear that she will need at least some of these. The risks and benefits of these have been discussed with the patient, & she wishes to proceed, if needed. Additionally, her malnutrition is due in part to her large hiatal hernia, which needs to be surgically corrected after her ulcerative colitis stabilizes. Her magnesium is currently stable (was off PPI). Her potassium has been repleted. Some of her electrolyte abnormalities are from outpatient Lasix, however her peripheral edema is due to protein losing enteropathy, not from CHF clinically (although there is no recent echocardiogram in the computer). 09/05/2016: [id number] VIEWS- Nonspecific bowel gas pattern, without findings indicative of obstruction or ileus. No radiographic findings suggestive of megacolon in the setting of ulcerative colitis. 09/06/2016: *Hep Bs Ab- pending. *As of 09/06/2016, the patient remains hemodynamically stable and afebrile. Her current GI regimen includes Rowasa enema 4g pr Q bedtime, Apriso .375g tab- 4 tabs daily (*the patient is taking her own), IV SoluMedrol 40 mg BID, 6MP 50 mg daily, Imodium as needed & Omeprazole 20 mg daily. She is on sc heparin for DVT prophylaxis. She has not yet been seen by the nutrition department. She is ambulating. She tolerated clears, but still has diarrhea. She denies any abdominal pain. Her nausea is gone. SUGGEST: *Clears po & advance diet as tolerated. Nutrition consult re: supplements. *IV Solu-Medrol 40 mg Q12. *The patient may use her Apriso 0.375 g tab-4 tabs po daily. *Rowasa enema 4g pr Q bedtime. *Continue 6MP 50 mg po daily (this will take 2-3 months to achieve therapeutic levels), with consideration for outpatient biologic agents. *Change Imodium to 1 tab po TID, watching for signs of megacolon. Serial abdominal exams. Will defer TPN for now, but this might be re-considered, depending on clinical course. *Check prealbumin, ESR, CRP. *Await 09/06/2016: Hep Bs Ab (if not immune, advise semi-elective Hep A & B vaccinations. *Check stool C&S, C. difficile, & Shiga toxin. DVT prophylaxis with ALPS/sc heparin. Hold Lasix. Follow-up electrolytes (replete K+). *Zofran 4 mg IV Q6h as needed. *May carefully continue Omeprazle 20 mg daily, but if magnesium drops, would switch PPI to H2B. Replete Mg2+ parenterally, as IV Mg2+ can exacerbate diarrhea. Check I/O's. *Eventual hiatal hernia repair (tentatively scheduled by Dr. Dewey for ), with the caveat that the patient's ulcerative clitis is under beter control by then. Eventual repeat EGD/colonoscopy with the pediatric colonoscope & chromoendoscopy in 09/2016, to reassess the lumpy bumpy areas that are probably pseudopolyps, as well as the numerus diffuse gastric erosions with eschars/borderline shallow ulcratons. *Consideration for repeat CTE, depending on clinical course. The above findings and recommendations were previously discussed with the medical house staff and Dr. Dewey. Problem List: 1. Ulcerative colitis 2. Weight loss 3. Failure to thrive 4. Malnutrition 5. Diarrhea 6. Nausea 7. Hypokalemia 8. Hiatal hernia 9. Diverticulosis of colon 10. Gastritis 11. Fatty liver 12. Cholelithiasis 13. Duodenal diverticulum 14. Right inguinal hernia Subjective Subjective: 09/05/2016: [id number] VIEWS- Nonspecific bowel gas pattern, without findings indicative of obstruction or ileus. No radiographic findings suggestive of megacolon in the setting of ulcerative colitis. *As of 09/06/2016, the patient remains hemodynamically stable and afebrile. Her current GI regimen includes Rowasa enema 4g pr Q bedtime, Apriso .375g tab- 4 tabs daily (*the patient is taking her own), IV SoluMedrol 40 mg BID, 6MP 50 mg daily, Imodium as needed & Omeprazole 20 mg daily. She is on sc heparin for DVT prophylaxis. She has not yet been seen by the nutrition department. She is ambulating. She tolerated clears, but still has diarrhea. She denies any abdominal pain. Her nausea is gone. Review of Systems: Full 14 point review of systems otherwise noncontributory, and as above. Review of Systems Constitutional: Reports; weakness & weight loss Denies: chills, diaphoresis, fever, malaise. EENTM: Denies: blurred vision, double vision, visual changes, eye pain, eye drainage, eye tearing, icterus, ear discharge, ear pain, ear redness, hearing changes, nasal congestion, epistaxis, nasal pain, throat pain, throat swelling, mouth pain, tooth pain. Cardiovascular: Reports: peripheral edema (feet B/L)- improving. Denies: chest pain, orthopena, palpitations, syncope. Respiratory: Denies: cough, hemoptysis, orthopnea, short of breath, sputum production, stridor, wheezing. GI: Reports: diarrhea; bloody stool (scant), nausea (gone). Denies: abdminal pain, bloating, constipation, distention, bowel incontinence, melena, change in stool, vomiting, steatorrhea. Genitourinary: Denies: discharge, dysuria, frequency, hematuria, hesitation, nocturia, pain, urgency. Musculoskeletal: Reports: joint pain (R TKR x 2). Denies: back pain, gout, joint swelling, muscle pain, muscle stiffness, neck pain. Skin: Denies: cysts, change in skin color, change in hair/nails, dryness, erythema, jaundice, lesions, lymphangitis, lumps, moles, rash. Neurological/Psychological: Reports; mild anxiety Denies: ataxia, cognitive dysfunction, confusion, depressed, dementia, emotional problems, headache, numbness, paresthesia, pre-existing deficit, petit mal seizures, tingling, tremors, tonic-clonic seizures, unable to move lower ext, unable to move upper ext. Hematologic/Endocrine: Denies: bruising, bleeding, polyuria, polydipsia. Immunologic/Allergic: Denies: splenectomy, HIV/AIDS, lymphadenopathy. All Other Systems: Reviewed and Negative Objective Vital Signs and I&Os Vital Signs Date Time Temp Pulse Resp B/P Pulse O2 O2 Flow FiO2 Ox Delivery Rate 09/06 0002 98.4 70 20 120/62 93 Room Air 09/05 0906 98.8 70 20 122/60 92 Room Air Intake & Output 09/06 1600 09/06 0400 09/05 1600 09/05 0400 09/04 1600 09/04 0400 Intake Total 699 543 0472 1000 Output Total 300 550 450 Balance 200 -105 355 0943 Intake, IV 400 819 181 8026 Intake, Oral 100 200 840 Number 1 3 Bowel Movements Output, Urine 300 550 450 Patient 113 lb Weight Physical Exam: Well-developed, slightly malnourished, thin, elderly female, in no apparent distress. Pleasant. Slightly anxious. Sclera anicteric. Conjunctiva pink. Oropharynx clear. No oral thrush. No apthous ulcers. There is no adenopathy, thyromegaly, or JVD. No peripheral stigmata of inflammatory bowel disease or chronic liver disease on exam. No CVA tenderness. No spiders on the anterior chest wall. Breast & pelvc exams: API. Lungs: clear to A&P. Heart exam: regular rate rhythm, S1 and S2, without any murmur. Abdominal exam: normal bowel sounds, soft belly, nontender, without guarding or rebound. Negative Ricketts sign. Small reducible RIH, otherwise without mass. No organomegaly. No fluid shift. No pulsatile mass. *Clinically, without megacolon. Repeat digital rectal exam: deferred, as just done at 05/05/2016: colonoscopy. Extremities: without cyanosis or clubbing. 1+ pitting edema LE B/L, without palpable cords. B/L LE ALPS. Post right TKR x 2. DJD, without acute arthropathy. No rash except for mininmal stasis dermatitis changes LE B/L, L > R (improved). Distal pulses 2+ bilaterally. DTRs 2+ bilaterally. Alert and O x 3. Current Medications: Current Medications Sig/Timoteo Start time Last Medication Dose Route Stop Time Status Admin Acetaminophen 650 MG Q6P PRN 09/04 2315 AC PO Acetaminophen/ 1 TAB Q6P PRN 09/04 2315 AC Hydrocodone Bitart PO Heparin Sodium 5,000 UNIT Q8 09/04 2310 AC 09/06 (Porcine) SC 0636 Loperamide HCl 2 MG Q6P PRN 09/05 1515 AC PO Magnesium Sulfate 1 GM ONCE ONE 09/05 1015 CAN Dextrose/Water 100 ML IV 09/05 1414 Mercaptopurine 50 MG DAILY 09/05 1000 AC 09/05 PO 0942 Mesalamine 4 GM AT BEDTIME 09/05 2200 AC MI Mesalamine 1,000 MG BID 09/05 1000 CAN PO Mesalamine 1.5 GM DAILY 09/05 1000 AC PO Methylprednisolone 40 MG Q12 09/05 1000 AC 09/05 IV 205 Non-Formulary 0 SEE ADMIN CRITERIA 09/05 0830 CAN Medication ANY Omeprazole 20 MG DAILY 09/05 1000 AC 09/05 PO 0934 Oxycodone/ 2 TAB Q6P PRN 09/04 2315 AC Acetaminophen PO Patient Medication 1 ED .STK-MED ONE 09/05 1425 DC Teaching ED 09/05 1426 Potassium Chloride 10 MEQ Q1H 09/05 1015 DC IV 09/05 1116 Potassium Chloride 40 MEQ ONCE ONE 09/05 0800 DC 09/05 PO 09/05 0801 0934 Sodium Chloride 1,000 ML Q20H 09/05 0130 DC 09/05 IV 0321 Results Pertinent Lab Results: Laboratory Tests 09/06 09/05 0636 0810 Chemistry Sodium (137 - 145 mmol/L) Pending 135 L Potassium (3.5 - 5.1 mmol/L) Pending 3.7 Chloride (98 - 107 mmol/L) Pending 101 Carbon Dioxide (22 - 30 mmol/L) Pending 27 Anion Gap (5 - 16) Pending 7 BUN (7 - 17 mg/dL) Pending 12 Creatinine (0.5 - 1.0 mg/dL) Pending 0.7 Estimated GFR (>60 ml/min) > 60 BUN/Creatinine Ratio (7 - 25 %) Pending 17.1 Phosphorus (2.5 - 4.5 mg/dL) 3.9 Magnesium (1.6 - 2.3 mg/dL) Pending 1.8 C-React Prot High Sens Pending Hematology CBC w Diff Pending NO MAN DIFF REQ WBC (4.8 - 10.8 /CUMM) Pending 12.9 H RBC (4.20 - 5.40 /CUMM) Pending 3.83 L Hgb (12.0 - 16.0 G/DL) Pending 10.7 L Hct (37 - 47 %) Pending 32.2 L MCV (81.0 - 99.0 FL) Pending 84.0 MCH (27.0 - 31.0 PG) Pending 28.0 RDW (11.5 - 14.5 %) Pending 15.2 H Plt Count (130 - 400 /CUMM) Pending 357 MPV (7.4 - 10.4 FL) Pending 8.2 Gran % (42.2 - 75.2 %) 91.5 H Lymphocytes % (20.5 - 51.1 %) 4.2 L Monocytes % (1.7 - 9.3 %) 4.2 Eosinophils % (0 - 5 %) 0 Basophils % (0.0 - 2.0 %) 0.1 Absolute Granulocytes (1.4 - 6.5 /CUMM) 11.8 H Absolute Lymphocytes (1.2 - 3.4 /CUMM) 0.5 L Absolute Monocytes (0.10 - 0.60 /CUMM) 0.5 Absolute Eosinophils (0.0 - 0.7 /CUMM) 0 Absolute Basophils (0.0 - 0.2 /CUMM) 0 PUBS MCHC (33.0 - 37.0 G/DL) Pending 33.4 ESR Westergren Pending Serology Hep Bs Antibody Pending 09/04 1820 Chemistry Sodium (137 - 145 mmol/L) 134 L Potassium (3.5 - 5.1 mmol/L) 3.0 L Chloride (98 - 107 mmol/L) 96 L Carbon Dioxide (22 - 30 mmol/L) 33 H Anion Gap (5 - 16) 5 BUN (7 - 17 mg/dL) 14 Creatinine (0.5 - 1.0 mg/dL) 0.7 Estimated GFR (>60 ml/min) > 60 BUN/Creatinine Ratio (7 - 25 %) 20.0 Glucose (65 - 99 mg/dL) 79 Calcium (8.4 - 10.2 mg/dL) 7.7 L Magnesium (1.6 - 2.3 mg/dL) 1.8 Total Bilirubin (0.2 - 1.3 mg/dL) 0.7 AST (14 - 36 U/L) 25 ALT (9 - 52 U/L) 37 Alkaline Phosphatase (<127 U/L) 133 H Troponin I (< 0.11 ng/ml) < 0.01 Total Protein (6.3 - 8.2 g/dL) 5.7 L Albumin (3.5 - 5.0 g/dL) 2.2 L Globulin (1.9 - 4.2 gm/dL) 3.5 Albumin/Globulin Ratio (1.1 - 2.2 %) 0.6 L Coagulation PT (9.4 - 12.5 SEC) 13.7 H INR (0.90 - 1.19) 1.31 H APTT (25 - 37 SEC) 29 Hematology CBC w Diff NO MAN DIFF REQ WBC (4.8 - 10.8 /CUMM) 9.8 RBC (4.20 - 5.40 /CUMM) 4.49 Hgb (12.0 - 16.0 G/DL) 12.4 Hct (37 - 47 %) 37.4 MCV (81.0 - 99.0 FL) 83.3 MCH (27.0 - 31.0 PG) 27.6 RDW (11.5 - 14.5 %) 14.6 H Plt Count (130 - 400 /CUMM) 409 H MPV (7.4 - 10.4 FL) 7.9 Gran % (42.2 - 75.2 %) 79.5 H Lymphocytes % (20.5 - 51.1 %) 11.4 L Monocytes % (1.7 - 9.3 %) 8.2 Eosinophils % (0 - 5 %) 0.2 Basophils % (0.0 - 2.0 %) 0.7 Absolute Granulocytes (1.4 - 6.5 /CUMM) 7.8 H Absolute Lymphocytes (1.2 - 3.4 /CUMM) 1.1 L Absolute Monocytes (0.10 - 0.60 /CUMM) 0.8 H Absolute Eosinophils (0.0 - 0.7 /CUMM) 0 Absolute Basophils (0.0 - 0.2 /CUMM) 0.1 PUBS MCHC (33.0 - 37.0 G/DL) 33.2 Urines Urine Color (YEL,AMB,STR) YEL Urine Clarity (CLEAR) CLEAR Urine pH (5.0 - 8.0) 6.0 Ur Specific [place] (1.001 - 1.035) 1.025 Urine Protein (NEG,<30 MG/DL) TRACE H Urine Ketones (NEG) 15 H Urine Nitrite (NEG) NEG Urine Bilirubin (NEG) NEG@ICTO Urine Urobilinogen (0.1 - 1.0 EU/dl) 0.2 Ur Leukocyte Esterase (NEG) SMALL H Ur Microscopic SEDIMENT EXAMINED Urine RBC (0 - 5 /HPF) RARE Urine WBC (0 - 2 /HPF) 3-5 H Ur Epithelial Cells (NONE,FEW) MANY H Hyaline Casts (0/LPF) FEW H Urine Mucus (FEW,NONE) MANY H Urine Hemoglobin (NEG) NEG Urine Glucose (N MG/DL) NEG Imaging/Other Studies: *No imaging studies were obtained on admission. 09/04/2016: EKG- NSR @ 80, borderline LAD, ventricular bigeminy, NSST inferiorly. 09/05/2016: [id number] VIEWS- Nonspecific bowel gas pattern, without findings indicative of obstruction or ileus. No radiographic findings suggestive of megacolon in the setting of ulcerative colitis.
[2016-09-06 07:59] LABS: ABSOLUTE BASOPHIL COUNT 0 /CUMM (0.0-0.2); ABSOLUTE EOSINOPHIL COUNT 0 /CUMM (0.0-0.7); ABSOLUTE GRANULOCYTE CT 8.2 /CUMM (1.4-6.5); ABSOLUTE LYMPH COUNT 0.9 /CUMM (1.2-3.4); ABSOLUTE MONOCYTE COUNT 0.6 /CUMM (0.10-0.60); BASOPHIL % 0.3 % (0.0-2.0); EOSINOPHIL % 0 % (0-5); GRANULOCYTE % 83.7 % (42.2-75.2); HEMATOCRIT 28.9 % (37-47); MEAN CORPUSCULAR HGB 27.9 PG (27.0-31.0); MEAN CORPUSCULAR HGB CONC 33.3 G/DL (33.0-37.0); MEAN CORPUSCULAR VOLUME 83.9 FL (81.0-99.0); MEAN PLATELET VOLUME 8.2 FL (7.4-10.4); PLATELET COUNT 340 /CUMM (130-400); RBC DISTRIBUTION WIDTH 15.6 % (11.5-14.5); RED BLOOD CELL CT 3.44 /CUMM (4.20-5.40); WHITE BLOOD CELL COUNT 9.8 /CUMM (4.8-10.8)
[2016-09-06 08:09] VITALS: BP 118/58
--- NOTE | 2016-09-06 09:53 | PN- Att Addend ---
Attending Addendum Attending Brief Note Patient denies abdominal pain but has persistent bloody and mucus diarrhea although improved General Appearance: Alert, No Acute Distress Skin: Grossly normal HEENT: PEERLA Neck: Supple, No JVD Cardiovascular: Regular Rate, Normal S1, Normal S2, No Murmurs Lungs: Clear to Auscultation, Normal Air Movement Abdomen: Normal Bowel Sounds, Soft, No Tenderness Neurological: Normal Speech, Strength at 5/5 X4 Ext, Cranial Nerves 3-12 NL, Reflexes 2+ Extremities: No Clubbing, No Cyanosis, No Edema Vascular: Normal Pulses Assessment 71-year-old with history of ulcerative colitis presenting with bloody and mucus diarrhea without any associated abdominal pain. She is currently being admitted for flareup of ulcerative colitis on IV Solu-Medrol. Management will be as per GI. Plan Ulcerative colitis management as per GI Advance diet as tolerated May continue other home medications DVT prophylaxis Current Medications Sig/Timoteo Start time Last Medication Dose Route Stop Time Status Admin Acetaminophen 650 MG Q6P PRN 09/04 2315 AC PO Acetaminophen/ 1 TAB Q6P PRN 09/04 2315 AC Hydrocodone Bitart PO Heparin Sodium 5,000 UNIT Q8 09/04 2310 AC 09/06 (Porcine) SC 0636 Loperamide HCl 2 MG Q6P PRN 09/05 1515 AC PO Magnesium Sulfate 1 GM ONCE ONE 09/05 1015 CAN Dextrose/Water 100 ML IV 09/05 1414 Mercaptopurine 50 MG DAILY 09/05 1000 AC 09/05 PO 0942 Mesalamine 4 GM AT BEDTIME 09/05 2200 AC HI Mesalamine 1.5 GM DAILY 09/05 1000 AC PO Methylprednisolone 40 MG Q12 09/05 1000 AC 09/05 IV 2059 Omeprazole 20 MG DAILY 09/05 1000 AC 09/05 PO 0934 Oxycodone/ 2 TAB Q6P PRN 09/04 2315 AC Acetaminophen PO Patient Medication 1 ED .STK-MED ONE 09/05 1425 DC Teaching ED 09/05 1426 Potassium Chloride 10 MEQ Q1H 09/05 1015 DC IV 09/05 1116 Sodium Chloride 1,000 ML Q20H 09/05 0130 DC 09/05 IV 0321 Laboratory Tests 09/06 0636 Chemistry Sodium (137 - 145 mmol/L) 135 L Potassium (3.5 - 5.1 mmol/L) 4.4 Chloride (98 - 107 mmol/L) 105 Carbon Dioxide (22 - 30 mmol/L) 25 Anion Gap (5 - 16) 5 BUN (7 - 17 mg/dL) 14 Creatinine (0.5 - 1.0 mg/dL) 0.8 Estimated GFR (>60 ml/min) > 60 BUN/Creatinine Ratio (7 - 25 %) 17.5 Magnesium (1.6 - 2.3 mg/dL) 1.9 C-Reactive Prot, Quant (<1.0 mg/dL) 2.8 H C-React Prot High Sens (1.0 - 3.0 mg/L) > 15.0 H Hematology CBC w Diff NO MAN DIFF REQ WBC (4.8 - 10.8 /CUMM) 9.8 RBC (4.20 - 5.40 /CUMM) 3.44 L Hgb (12.0 - 16.0 G/DL) 9.6 L Hct (37 - 47 %) 28.9 L MCV (81.0 - 99.0 FL) 83.9 MCH (27.0 - 31.0 PG) 27.9 RDW (11.5 - 14.5 %) 15.6 H Plt Count (130 - 400 /CUMM) 340 MPV (7.4 - 10.4 FL) 8.2 Gran % (42.2 - 75.2 %) 83.7 H Lymphocytes % (20.5 - 51.1 %) 9.4 L Monocytes % (1.7 - 9.3 %) 6.6 Eosinophils % (0 - 5 %) 0 Basophils % (0.0 - 2.0 %) 0.3 Absolute Granulocytes (1.4 - 6.5 /CUMM) 8.2 H Absolute Lymphocytes (1.2 - 3.4 /CUMM) 0.9 L Absolute Monocytes (0.10 - 0.60 /CUMM) 0.6 Absolute Eosinophils (0.0 - 0.7 /CUMM) 0 Absolute Basophils (0.0 - 0.2 /CUMM) 0 PUBS MCHC (33.0 - 37.0 G/DL) 33.3 ESR Westergren (0 - 20 MM) 3 Serology Hep Bs Antibody Pending Vital Signs Date Time Temp Pulse Resp B/P Pulse O2 O2 Flow FiO2 Ox Delivery Rate 09/06 0809 97.9 64 20 118/58 95 Room Air 09/06 0002 98.4 70 20 120/62 93 Room Air
[2016-09-06 16:23] VITALS: BP 110/62
[2016-09-06 23:11] VITALS: BP 100/64
--- NOTE | 2016-09-07 07:02 | PN- Housestaff ---
Subjective Follow-up For: UC flare Subjective: Patient seen and examined, resting comfortably in her hospital bed. States that yesterday she only had one loose bowel movement, thinks that her flare is alleviating. Her nausea has subsided, she tolerated full liquid diet well yesterday. Review of Systems Constitutional: Reports: see HPI. Objective Last 24 Hrs of Vital Signs/I&O Vital Signs Date Time Temp Pulse Resp B/P Pulse O2 O2 Flow FiO2 Ox Delivery Rate 09/06 2311 98.2 70 19 100/64 93 09/06 1623 97.7 55 18 110/62 93 09/06 0809 97.9 64 20 118/58 95 Room Air Intake & Output 09/07 0800 09/07 0000 09/06 1600 Intake Total 200 720 Output Total Balance 200 720 Intake, Oral 200 720 Number 0 2 Bowel Movements Patient 113 lb Weight Physical Exam General Appearance: Alert, Oriented X3, Cooperative HEENT: Atraumatic, PERRLA, EOMI Cardiovascular: Regular Rate, Normal S1, Normal S2 Lungs: Clear to Auscultation, Normal Air Movement Abdomen: Normal Bowel Sounds, Soft, No Tenderness, No Hepatospenomegaly Extremities: No Clubbing, No Cyanosis, No Edema Current Medications: Current Medications Sig/Timoteo Start time Last Medication Dose Route Stop Time Status Admin Acetaminophen 650 MG Q6P PRN 09/04 2315 AC PO Acetaminophen/ 1 TAB Q6P PRN 09/04 2315 AC Hydrocodone Bitart PO Heparin Sodium 5,000 UNIT Q8 09/04 2310 AC 09/07 (Porcine) SC 0636 Loperamide HCl 2 MG Q6P PRN 09/05 1515 AC 09/06 PO 1007 Mercaptopurine 50 MG DAILY 09/05 1000 AC 09/06 PO 1025 Mesalamine 4 GM AT BEDTIME 09/05 2200 AC MA Mesalamine 1.5 GM DAILY 09/05 1000 AC 09/06 PO 1014 Methylprednisolone 40 MG Q12 09/05 1000 AC 09/06 IV 2222 Omeprazole 20 MG DAILY 09/05 1000 AC 09/06 PO 1007 Oxycodone/ 2 TAB Q6P PRN 09/04 2315 AC Acetaminophen PO Last 24 Hrs of Lab/Woody Results Last 24 Hrs of Labs/Mics: Laboratory Tests 09/07/16 0610: Sodium Pending, Potassium Pending, Chloride Pending, Carbon Dioxide Pending, Anion Gap Pending, BUN Pending, Creatinine Pending, BUN/Creatinine Ratio Pending , Magnesium Pending, CBC w Diff Pending, WBC Pending, RBC Pending, Hgb Pending, Hct Pending, MCV Pending, MCH Pending, RDW Pending, Plt Count Pending, MPV Pending, PUBS MCHC Pending Microbiology 09/06 1350 STOOL: Clostridium difficile Toxin A & B - RECD Assessment/Plan Assessment: Assessment- 1. Ulcerative colitis flareup/chronic diarrhea 2. Weight loss 3. Protein malnutrition 4. Nausea and vomiting 5. Moderate malnutrition Plan- Continue IV Solu-Medrol bid, mesalamine, 5-MP; will consider switching her steroids to by mouth She tolerated clear liquid diet well, will convert to full regular diet today GI recs appreciated Continue pain meds per EMR Stool studies pending Her nausea and vomiting seems to have been alleviated Ambulate patient Appreciate dietary consult/ recs Problem List: 1. Hiatal hernia 2. Diarrhea 3. Weight loss 4. Diverticulosis of colon Pain Ratin Pain Location: NONE Pain Goal: Remain pain free Pain Plan: PER EMR Tomorrow's Labs & Rationales: PER EMR
[2016-09-07 07:49] LABS: ABSOLUTE BASOPHIL COUNT 0 /CUMM (0.0-0.2); ABSOLUTE EOSINOPHIL COUNT 0 /CUMM (0.0-0.7); ABSOLUTE LYMPH COUNT 0.7 /CUMM (1.2-3.4); ABSOLUTE MONOCYTE COUNT 0.3 /CUMM (0.10-0.60); BASOPHIL % 0.3 % (0.0-2.0); EOSINOPHIL % 0 % (0-5); HEMATOCRIT 27.5 % (37-47); MEAN CORPUSCULAR VOLUME 82.5 FL (81.0-99.0); MEAN PLATELET VOLUME 8.1 FL (7.4-10.4); PLATELET COUNT 304 /CUMM (130-400); RBC DISTRIBUTION WIDTH 15.1 % (11.5-14.5); RED BLOOD CELL CT 3.33 /CUMM (4.20-5.40); WHITE BLOOD CELL COUNT 7.1 /CUMM (4.8-10.8)
[2016-09-07 07:56] VITALS: BP 114/64
[2016-09-07 08:43] LABS: GRANULOCYTE % 85.3 % (42.2-75.2)
--- NOTE | 2016-09-07 08:48 | PN- Gastroenterology ---
Assessment/Plan Assessment/Recommendations: 71-year-old female with known ulcerative colitis, diagnosed 05/05/2016 via colonoscopy, with mild to moderate chronic active colitis from the rectum to the transverse colon, without any dysplasia, malignancy, or granuloma. Stains for CMV were negative. She had some nonspecific raised lumpy bumpy areas, suspicious for pseudopolyps. She previously was on inpatient IV Solu-Medrol, and was tapered, then switched to Uceris. She was last seen in the office 2016.At that time, her Uceris had been stopped 07/29/2016. She was maintained on Apriso 0.375g tab 4 tabs daily, as her insurance company stopped her previous mesalamine, Delzicol. She was also on Rowasa enemas 4g Q bedtime. Her symptoms flared off sterids, and her Uceris 9 mg daily was resumed 09/01/2016. *I previously had long discussions with the patient regarding immunosuppressants, such as 6-MP, or biologic agents, including the risks and benefits, but as she was improving, we held off on these, keep in mind her advanced age, which especially can make biologic agents more risky. The patient presented to the [facility] 09/04/2016 at 5:18 p.m., at which point, she was hemodynamically stable (although bradycardic) & afebrile, and planning of a few weeks of nausea, decreased by mouth intake, and mild diarrhea (< 4x/day max), with occasional rectal bleeding, pus & mucus in the stool, which is baseline for the patient. There is also some mild fecal incontinence She did state however that she has lost 40 pounds since 03/2016. *Some of the above is from a large intrathoracic hiatal hernia, for which she is scheduled for a laparoscopic repair by Dr. Dewey later this month, on 09/21/2016, with the caveat that her ulcerative colitis stabilizes prep. She has chronic mild early satiety, attributed to the hiatal hernia. Her reflux symptoms are stable on outpatient Pepcid 20 mg po BID. Omeprazole (PPI) was previously stopped because of low magnesium levels. There is no history of melena. She denies any fevers, chills, symptoms of UTI, URI, abdminal pain, constipation, or obstipation. There is mild tenesmus. She denies any rashes, aside from some stasis dermatitis changes. There are no acute arthralgias, although she has chronic DJD. She denies any recent antibiotics, recent travel, or NSAID use. There is no point source by history. She denies any raw food ingestion. She was given IV Solu-Medrol 125 mg by the ER, along with IV NS & IV potassium. *Some of the patient's low potassium is from outpatient Lasix use, although she saw vascular surgery and her peripheral edema was felt to be from low protein state. 04/27/2016: *CT ABD & PELVIS W IV CONTRAST 1. Intrathoracic stomach. This alone could cause nausea and pain. 2. Fatty liver. 3. Cholelithiasis. Enlarged gallbladder. 4. Large duodenal diverticulum that seems to mildly compress the distal common bile duct. 5. Findings that would suggest left-sided colitis. Diverticulosis of the sigmoid with mild case of diverticulitis. 6. Solitary right kidney. 7. Portion of the body of the pancreas drawn towards the diaphragmatic hiatus. 05/06/2016: XRY-CHEST XRAY, PA AND LATERAL Mild cardiomegaly. No acute pneumonic process. Large hiatal hernia. 08/11/2016: US-EXT BILAT VENOUS DOPPLER- Negative for DVT. Small left Lehman's cyst. 09/04/2016: Admission labs- WBC 9.8 (80% gran/8 gra Ab), H/H 12.4/37.4, normal MCV, PLT 409, Pt 13.7, INr 1.31, PTT 29. glu 79. BUN/Cr 14/0.7, GFR > 60, *K 3.0, HCO3 33, AG 5, Mg 1.8, Ca2+ 7.7, albumin 2.2, globulin 3.5, TBil 0.7, alk phos 133, AST 25, ALT 37, toponon < .01; U/A- clear, yellow, 1.025, 6.0, rare RBC, 3-5 WBC, few bact, many epithelial cells, 15+ ketone, tr protein, negative icto, urobilinogen 0.2, negative nitrite, small esterase. 09/05/2016: WBC 12.9 (post steroids), H/H 10.7/32.2, PLT 357, stable electrolytes except forborderline Na 135, K 3.7, HCO3 27, AG 7, Mg2+ 1.8, PO4 3.9, BUN/Cr 12/0.7, GFR > 60 *No imaging studies were obtained on admission. 09/04/2016: EKG- NSR @ 80, borderline LAD, ventricular bigeminy, NSST inferiorly. She is followed for primary care by Dr. Grady and Dr. Renee, for [employer] by Dr. Gonzalez, and for surgery by Dr. Dewey, non-hypertensive, non-diabetic, DJD , osteoporosis, fatty liver, incidental cholelithiasis, incidental duodenal diverticulum, right inguinal hernia, history of hypokalemia and hypomagnesemia, originally seen in inpatient GI consultation at [facility] 04/28/2016, when she was admitted to [facility] 04/27/2016 to 05/02/2016, for diarrhea and an abnormal CAT scan. She was to have seen me in the office in GI consultation a few weeks later , but was admitted for the above. 04/27/2016: CT scan of the abdomen and pelvis with IV contrast- intrathoracic stomach, large hiatal hernia, fatty liver, cholelithiasis, large duodenal diverticulum near a 9 mm CBD, colitis from the hepatic flexure to the sigmoid, solitary right kidney, & fat-containing right inguinal hernia (*see above). *Additionally, the CT was initially read as sigmoid diverticulitis, but in retrospect, there was no diverticulitis, just diverticulosis and the colitis. The patient remotely had right total knee replacement in 12/2005, with redo in 02/2014, and cataract surgery OU. 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 Upon admission 04/27/2016, she had OB-positive stool with hyperkalemia. Please note, 06/18/2002: baseline surgical colonoscopy without biopsies by Dr. Meneses (purged from the computer)- reportedly "normal". The patient is an ex-25 pack year smoker, stopping in 1989. Please note, 04/27/2016: *stool culture, C. difficile, Shiga toxin, Crypto Ag, & Giardia Ag- all negative. The patient was initially treated with Ceftriaxone and Flagyl for questionable sigmoid diverticulitis then, however the antibiotics were stopped in 2-3 days, after re-reading the CT with radiology. 04/27/2016: Positive lactoferrin. 04/29/2016: ESR 1, elevated CRP 17.3, normal TFTs with normal TSH. Admission labs 04/27/2016: WBC 10.1 (borderline left shift), H/H 14.1/42.2 (hemoconcentrated), normal MCV, PLT 395K, BUN/Cr 16/0.7, GFR > 60, potassium 2.9, normal LFTs, except decreased albumin 2.6, globulin 3.2. 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 04/29/2016: normal IgA 123, DGP Ab- negative, low carotene < 2. 04/30/2016: tTG Ab- negative. There is no family history of any GI malignancy, GI disease, or inherited liver disease. She was discharged from [facility] to home 05/02/2016. 05/05/2016: *Outpatient combined baseline EGD to the third portion of the duodenum (hiatal hernia evaluation), plus followup colonoscopy to the terminal ileum with a pediatric colonoscope (for colitis)- random small bowel biopsy second and third portions of the duodenum- negative, large periampullary duodenal diverticulum, multiple superficial gastric erosions with tiny eschars- biopsies with acute erosive gastritis, H. pylori- negative, large hiatal hernia, Z-line at 30 cm, with mild to moderate GERD on biopsies. The patient appeared to have pancolitis endoscopically. There was no gross backwash ileitis. The colitis seemed mild to moderate in the rectum, more severe from the sigmoid to the upper right colon, then diminishing to the cecum, endoscopically. There appeared to be some nonspecific lumpy bumpy areas in a patchy fashion, probably representing pseudopolyps, and this will have to be readdressed after treatment, mild left sided diverticula, mild internal hemorrhoids. *Colon biopsy stains for CMV- negative. Biopsies of terminal ileum, cecum, and right colon- negative. Biopsies of the transverse colon and left colon- mild chronic active colitis. Biopsies of the sigmoid- moderate chronic active colitis. Biopsy of the rectum- mild chronic active colitis, without dysplasia or malignancy. There were no granulomas. The patient was then readmitted to [facility] 1 day postop, from 2015 to 05/10/2016 with increased diarrhea, hypokalemia, hypomagnesemia and dehydration. *Please note, 05/05/2016: normal fasting gastrin 17, *QuantiFeron TB testing- indeterminate (low anergy), TPMT genotype and phenotype- normal genotype and normal enzyme activity; Hep A Ab, Hep Bs Ag, Hep B core Ab, & Hep C Ab- all negative, HIV- negative. 05/06/2016: *Chest x-ray- negative (with regard to indeterminate QuantiFeron testing), except for HH. Regarding the peripheral edema, 05/06/2016: Doppler LE B/L- negative for DVT. She was put on IV Solu Medrol 40 mg BID, with marked improvement. This was switched to Prednisone 30 mg twice a day, Delzicol 400 mg tablet 3 tabs 3 times a day, plus Imodium as needed. The patient was already on Fosamax. She was initially put on PPI for the gastric erosions, however this was switched to Pepcid because of the low magnesium. However, she was put back on Omeprazole prior to discharge by the housestaff. Ms. Surekha Orozco returned to the office 08/02/2016, accompanied by her sister- in-law, Angela, last in the office 05/20/2016. There was no postprandial pain to suggest intestinal angina. Please note, recent labs show that the patient was mildly hypothyroid, not hyperthyroid, with regard to the weight loss. She has erroneously continued her Omeprazole in addition to the Pepcid 20 mg BID. The Omeprazole was supposed to have been stopped last visit 05/20/2016, because of the low magnesium levels, which were felt to be mostly from diarrhea and from her diuretics. GI labs 05/24/2016: WBC 9.9, H/H 10.9/33.3, normal MCV, PLT 299, ESR 15, CRP 0.7, normal CMP except for mild contraction alkalosis and mild malnutrition, with albumin 2.9, globulin 2.8, other LFTs normal. 07/05/2016: normal fecal elastase 439 obtained for weight loss, going against pancreatic insufficiency. Labs per PMD 07/05/2016: WBC 6.3, H/H 12.4/38.3, PLT 356, ESR 5, normal CMP except albumin 2.6, globulin 3.4 with other LFTs negative, borderline elevated TSH 4.94, normal FT4 1.46, magnesium 1.6. The patient was stable off the Uceris, when last in the office 08/02/2016. She had not yet been vaccinated against Hepatitis A and B. She never went for he Hp Bs Ab. Assuming she was not immune, she was again told to follow up with her PMD to be semi-electively vaccinated against both Hepatitis A and B, in case more heavy duty immunosuppressants, such as 6MP, and/or biologic agents are needed. *The risk of biologic agents, immunosuppressants and/or steroids were previously discussed with the patient and include but are not limited to diabetes, hypertension, peptic ulcer disease, fluid overload, immunosuppression, myopathy, adrenal insufficiency, AVN, osteoporosis (which she already has), cataracts, pancytopenia, alopecia, glaucoma, TB, lymphoma, skin cancer, malignancy, hepatotoxicity, infusion reaction, lupus-like syndrome, myelosuppression, pancreatitis and/or opportunistic infections. She is agreeable to these if needed. When last in the office 08/02/2016, I advised a repeat colonoscopy with a pediatric colonoscope with chromoendoscopy in 09/2016 to reassess what appeared to be lumpy bumpy areas that are probably pseudopolyps. I also advised repeating an EGD at that time, in view of the numerous diffuse gastric erosions with eschars, which were borderline shallow ulcerations. The risks & benefits of EGD/colonoscopy were again discussed with the patient, and she wished to proceed. She was told to increase her Ensure from once a day to 3 times a day. If further weight loss occurs, consideration was for CT enterography, but again the above appeared to be dietary related. The 07/05/2016: normal fecal elastase of 439 goes against pancreatic insufficiency.\\ *The patient's ulcerative colitis has flared off of Uceris. She has previously responded to IV steroids, but these are used to induce remission, not maintain remission. Because of her advanced age, I previously had held off on immunosuppressants such as 6-MP, or biologic agents, however it is clear that she will need at least some of these. The risks and benefits of these have been discussed with the patient, & she wishes to proceed, if needed. Additionally, her malnutrition is due in part to her large hiatal hernia, which needs to be surgically corrected after her ulcerative colitis stabilizes. Her magnesium is currently stable (was off PPI). Her potassium has been repleted. Some of her electrolyte abnormalities are from outpatient Lasix, however her peripheral edema is due to protein losing enteropathy, not from CHF clinically (although there is no recent echocardiogram in the computer). 09/05/2016: [id number] VIEWS- Nonspecific bowel gas pattern, without findings indicative of obstruction or ileus. No radiographic findings suggestive of megacolon in the setting of ulcerative colitis. 09/05/2016: stool C&S, Shiga toxin- negative. 09/06/2016: *C. difficile- pending. 09/06/2016: *Hep Bs Ab < 5 (negative). 09/06/2016: *CRP 2.8, *ESR 3. *As of 09/06/2016, the patient remains hemodynamically stable and afebrile. Her current GI regimen includes Rowasa enema 4g pr Q bedtime, Apriso .375g tab- 4 tabs daily (*the patient is taking her own), IV SoluMedrol 40 mg BID, 6MP 50 mg daily, Imodium as needed & Omeprazole 20 mg daily. She is on sc heparin for DVT prophylaxis. She has not yet been seen by the nutrition department. She is ambulating. She tolerated clears, but still has diarrhea. She denies any abdominal pain. Her nausea is gone. *As of 09/07/2016, the patient remains hemodynamically stable & afebrile. *She was seen by Nutrition on 09/06/2016 & Ensure Carpio was advised TID with meals. Her diarrhea is much improved on IV steroids, with 6MP 50 mg daily started on , along with Apriso and Rowasa enemas. She only needed Imodium once yesterday. She tolerated full liquids, without any nausea, vomiting, or abdominal pain, and is ambulating. Potassium has been repleted. Magnesium is stable. SUGGEST: *Advance to low residue diet po as tolerated. *Ensure Carpio supplements TID with meals. *IV Solu-Medrol 40 mg Q12 & if stable, switch to Prednisone 30 mg po BID tomorrow. *The patient may use her Apriso 0.375 g tab-4 tabs po daily. *Rowasa enema 4g pr Q bedtime. *Continue 6MP 50 mg po daily (this will take 2-3 months to achieve therapeutic levels), with consideration for outpatient biologic agents. *Imodium as needed, watching for signs of megacolon. Serial abdominal exams. Will defer TPN for now, but this might be re-considered, depending on clinical course. *Advise semi-elective Hep A & B vaccinations. *Await 2016: C. difficile. DVT prophylaxis with ALPS/sc heparin. Mobilize patient. Follow-up blood sugars on steroids, as per medical team. Hold Lasix. Follow-up electrolytes (K+ repleted). *Zofran 4 mg IV Q6h as needed. *May carefully continue Omeprazle 20 mg daily, but if magnesium drops, would switch PPI to H2B. If needed, replete Mg2+ parenterally, as IV Mg2+ can exacerbate diarrhea. Check I/O's. *Eventual hiatal hernia repair (tentatively scheduled by Dr. Dewey for ), with the caveat that the patient's ulcerative colitis is under beter control by then. Eventual repeat EGD/colonoscopy with the pediatric colonoscope & chromoendoscopy in 09/2016, to reassess the lumpy bumpy areas that are probably pseudopolyps, as well as the numerus diffuse gastric erosions with eschars/borderline shallow ulcratons. *Consideration for repeat CTE, depending on clinical course. Assuming the patient continues to improve, for tentative discharge to home in 1-2 days. The above findings and recommendations were again discussed with the medical house staff, with Dr. Grady, and previously with Dr. Dewey. Problem List: 1. Ulcerative colitis 2. Weight loss 3. Failure to thrive 4. Malnutrition 5. Diarrhea 6. Nausea 7. Hypokalemia 8. Hiatal hernia 9. Diverticulosis of colon 10. Gastritis 11. Fatty liver 12. Cholelithiasis 13. Duodenal diverticulum 14. Right inguinal hernia Subjective Subjective: *As of 09/07/2016, the patient remains hemodynamically stable & afebrile. She was seen by Nutrition on 09/06/2016 & Ensure Carpio was advised TID with meals. Her diarrhea is much improved on IV steroids, with 6MP 50 mg daily started on , along with Apriso and Rowasa enemas. She only needed Imodium once yesterday. She tolerated full liquids, without any nausea, vomiting, or abdominal pain, and is ambulating. Potassium has been repleted. Magnesium is stable. Review of Systems: Full 14 point review of systems otherwise noncontributory, and as above. Review of Systems Constitutional: Reports; weakness (improving) & weight loss Denies: chills, diaphoresis, fever, malaise. EENTM: Denies: blurred vision, double vision, visual changes, eye pain, eye drainage, eye tearing, icterus, ear discharge, ear pain, ear redness, hearing changes, nasal congestion, epistaxis, nasal pain, throat pain, throat swelling, mouth pain, tooth pain. Cardiovascular: Reports: peripheral edema (feet B/L)- improving. Denies: chest pain, orthopena, palpitations, syncope. Respiratory: Denies: cough, hemoptysis, orthopnea, short of breath, sputum production, stridor, wheezing. GI: Reports: diarrhea (improved); bloody stool (scant), nausea (gone). Denies: abdminal pain, bloating, constipation, distention, bowel incontinence, melena, change in stool, vomiting, steatorrhea. Genitourinary: Denies: discharge, dysuria, frequency, hematuria, hesitation, nocturia, pain, urgency. Musculoskeletal: Reports: joint pain (R TKR x 2). Denies: back pain, gout, joint swelling, muscle pain, muscle stiffness, neck pain. Skin: Denies: cysts, change in skin color, change in hair/nails, dryness, erythema, jaundice, lesions, lymphangitis, lumps, moles, rash. Neurological/Psychological: Reports; mild anxiety Denies: ataxia, cognitive dysfunction, confusion, depressed, dementia, emotional problems, headache, numbness, paresthesia, pre-existing deficit, petit mal seizures, tingling, tremors, tonic-clonic seizures, unable to move lower ext, unable to move upper ext. Hematologic/Endocrine: Denies: bruising, bleeding, polyuria, polydipsia. Immunologic/Allergic: Denies: splenectomy, HIV/AIDS, lymphadenopathy. All Other Systems: Reviewed and Negative Objective Vital Signs and I&Os Vital Signs Date Time Temp Pulse Resp B/P Pulse O2 O2 Flow FiO2 Ox Delivery Rate 09/07 0756 97.6 62 18 114/64 97 Room Air 09/06 2311 98.2 70 19 100/64 93 09/06 1623 97.7 55 18 110/62 93 Intake & Output 09/07 1600 09/07 0400 09/06 1600 09/06 0400 09/05 1600 09/05 0400 Intake Total 200 4544 943 1906 1000 Output Total 300 550 450 Balance 200 920 -641 186 0463 Intake, IV 400 065 534 0794 Intake, Oral 200 820 200 840 Number 0 2 1 3 Bowel Movements Output, Urine 300 550 450 Patient 113 lb 113 lb Weight Physical Exam: Well-developed, slightly malnourished, thin, elderly female, in no apparent distress. Pleasant. Slightly anxious. Sclera anicteric. Conjunctiva pink. Oropharynx clear. No oral thrush. No aphthous ulcers. There is no adenopathy, thyromegaly, or JVD. No peripheral stigmata of inflammatory bowel disease or chronic liver disease on exam. No CVA tenderness. No spiders on the anterior chest wall. Breast & pelvc exams: API. Lungs: clear to A&P. Heart exam: regular rate rhythm, S1 and S2, without any murmur. Abdominal exam: normal bowel sounds, soft belly, nontender, without guarding or rebound. Negative Ricketts sign. Small reducible RIH, otherwise without mass. No organomegaly. No fluid shift. No pulsatile mass. *Clinically, without megacolon. Repeat digital rectal exam: deferred, as just done at 05/05/2016: colonoscopy. Extremities: without cyanosis or clubbing. 1+ pitting edema LE B/L, without palpable cords. B/L LE ALPS. Post right TKR x 2. DJD, without acute arthropathy. No rash, except for mininmal stasis dermatitis changes LE B/L, L > R (improved). Distal pulses 2+ bilaterally. DTRs 2+ bilaterally. Alert and O x 3. Physical Exam General Appearance: mild distress Current Medications: Current Medications Sig/Timoteo Start time Last Medication Dose Route Stop Time Status Admin Acetaminophen 650 MG Q6P PRN 09/04 2314 AC PO Acetaminophen/ 1 TAB Q6P PRN 09/04 2314 AC Hydrocodone Bitart PO Heparin Sodium 5,000 UNIT Q8 09/04 2310 AC 09/07 (Porcine) SC 0636 Loperamide HCl 2 MG Q6P PRN 09/05 1515 AC 09/06 PO 1007 Mercaptopurine 50 MG DAILY 09/05 1000 AC 09/06 PO 1025 Mesalamine 4 GM AT BEDTIME 09/05 2200 AC MA Mesalamine 1.5 GM DAILY 09/05 1000 AC 09/06 PO 1014 Methylprednisolone 40 MG Q12 09/05 1000 AC 09/06 IV 2222 Omeprazole 20 MG DAILY 09/05 1000 AC 09/06 PO 1007 Oxycodone/ 2 TAB Q6P PRN 09/04 2315 AC Acetaminophen PO Results Pertinent Lab Results: Laboratory Tests 09/07 09/06 0610 0636 Chemistry Sodium (137 - 145 mmol/L) 134 L 135 L Potassium (3.5 - 5.1 mmol/L) 4.2 4.4 Chloride (98 - 107 mmol/L) 105 105 Carbon Dioxide (22 - 30 mmol/L) 28 25 Anion Gap (5 - 16) 2 L 5 BUN (7 - 17 mg/dL) 14 14 Creatinine (0.5 - 1.0 mg/dL) 0.7 0.8 Estimated GFR (>60 ml/min) > 60 > 60 BUN/Creatinine Ratio (7 - 25 %) 20.0 17.5 Magnesium (1.6 - 2.3 mg/dL) 1.9 1.9 C-Reactive Prot, Quant (<1.0 mg/dL) 2.8 H C-React Prot High Sens (1.0 - 3.0 mg/L) > 15.0 H Hematology CBC w Diff NO MAN DIFF REQ NO MAN DIFF REQ WBC (4.8 - 10.8 /CUMM) 7.1 9.8 RBC (4.20 - 5.40 /CUMM) 3.33 L 3.44 L Hgb (12.0 - 16.0 G/DL) 9.3 L 9.6 L Hct (37 - 47 %) 27.5 L 28.9 L MCV (81.0 - 99.0 FL) 82.5 83.9 MCH (27.0 - 31.0 PG) 28.0 27.9 RDW (11.5 - 14.5 %) 15.1 H 15.6 H Plt Count (130 - 400 /CUMM) 304 340 MPV (7.4 - 10.4 FL) 8.1 8.2 Gran % (42.2 - 75.2 %) 85.3 H 83.7 H Lymphocytes % (20.5 - 51.1 %) 10.0 L 9.4 L Monocytes % (1.7 - 9.3 %) 4.4 6.6 Eosinophils % (0 - 5 %) 0 0 Basophils % (0.0 - 2.0 %) 0.3 0.3 Absolute Granulocytes (1.4 - 6.5 /CUMM) 6.0 8.2 H Absolute Lymphocytes (1.2 - 3.4 /CUMM) 0.7 L 0.9 L Absolute Monocytes (0.10 - 0.60 /CUMM) 0.3 0.6 Absolute Eosinophils (0.0 - 0.7 /CUMM) 0 0 Absolute Basophils (0.0 - 0.2 /CUMM) 0 0 PUBS MCHC (33.0 - 37.0 G/DL) 34.0 33.3 ESR Westergren (0 - 20 MM) 3 Serology Hep Bs Antibody (> OR = 10 mIU/mL) <5 L 09/05 02 0810 2052 Chemistry Sodium (137 - 145 mmol/L) 135 L Potassium (3.5 - 5.1 mmol/L) 3.7 Chloride (98 - 107 mmol/L) 101 Carbon Dioxide (22 - 30 mmol/L) 27 Anion Gap (5 - 16) 7 BUN (7 - 17 mg/dL) 12 Creatinine (0.5 - 1.0 mg/dL) 0.7 Estimated GFR (>60 ml/min) > 60 BUN/Creatinine Ratio (7 - 25 %) 17.1 Phosphorus (2.5 - 4.5 mg/dL) 3.9 Magnesium (1.6 - 2.3 mg/dL) 1.8 Hematology CBC w Diff NO MAN DIFF REQ WBC (4.8 - 10.8 /CUMM) 12.9 H RBC (4.20 - 5.40 /CUMM) 3.83 L Hgb (12.0 - 16.0 G/DL) 10.7 L Hct (37 - 47 %) 32.2 L MCV (81.0 - 99.0 FL) 84.0 MCH (27.0 - 31.0 PG) 28.0 RDW (11.5 - 14.5 %) 15.2 H Plt Count (130 - 400 /CUMM) 357 MPV (7.4 - 10.4 FL) 8.2 Gran % (42.2 - 75.2 %) 91.5 H Lymphocytes % (20.5 - 51.1 %) 4.2 L Monocytes % (1.7 - 9.3 %) 4.2 Eosinophils % (0 - 5 %) 0 Basophils % (0.0 - 2.0 %) 0.1 Absolute Granulocytes (1.4 - 6.5 /CUMM) 11.8 H Absolute Lymphocytes (1.2 - 3.4 /CUMM) 0.5 L Absolute Monocytes (0.10 - 0.60 /CUMM) 0.5 Absolute Eosinophils (0.0 - 0.7 /CUMM) 0 Absolute Basophils (0.0 - 0.2 /CUMM) 0 PUBS MCHC (33.0 - 37.0 G/DL) 33.4 Urines Urine Color (YEL,AMB,STR) YEL Urine Clarity (CLEAR) CLEAR Urine pH (5.0 - 8.0) 6.0 Ur Specific [place] (1.001 - 1.035) 1.025 Urine Protein (NEG,<30 MG/DL) TRACE H Urine Ketones (NEG) 15 H Urine Nitrite (NEG) NEG Urine Bilirubin (NEG) NEG@ICTO Urine Urobilinogen (0.1 - 1.0 EU/dl) 0.2 Ur Leukocyte Esterase (NEG) SMALL H Ur Microscopic SEDIMENT EXAMINED Urine RBC (0 - 5 /HPF) RARE Urine WBC (0 - 2 /HPF) 3-5 H Ur Epithelial Cells (NONE,FEW) MANY H Hyaline Casts (0/LPF) FEW H Urine Mucus (FEW,NONE) MANY H Urine Hemoglobin (NEG) NEG Urine Glucose (N MG/DL) NEG 09/04 1820 Chemistry Sodium (137 - 145 mmol/L) 134 L Potassium (3.5 - 5.1 mmol/L) 3.0 L Chloride (98 - 107 mmol/L) 96 L Carbon Dioxide (22 - 30 mmol/L) 33 H Anion Gap (5 - 16) 5 BUN (7 - 17 mg/dL) 14 Creatinine (0.5 - 1.0 mg/dL) 0.7 Estimated GFR (>60 ml/min) > 60 BUN/Creatinine Ratio (7 - 25 %) 20.0 Glucose (65 - 99 mg/dL) 79 Calcium (8.4 - 10.2 mg/dL) 7.7 L Magnesium (1.6 - 2.3 mg/dL) 1.8 Total Bilirubin (0.2 - 1.3 mg/dL) 0.7 AST (14 - 36 U/L) 25 ALT (9 - 52 U/L) 37 Alkaline Phosphatase (<127 U/L) 133 H Troponin I (< 0.11 ng/ml) < 0.01 Total Protein (6.3 - 8.2 g/dL) 5.7 L Albumin (3.5 - 5.0 g/dL) 2.2 L Globulin (1.9 - 4.2 gm/dL) 3.5 Albumin/Globulin Ratio (1.1 - 2.2 %) 0.6 L Coagulation PT (9.4 - 12.5 SEC) 13.7 H INR (0.90 - 1.19) 1.31 H APTT (25 - 37 SEC) 29 Hematology CBC w Diff NO MAN DIFF REQ WBC (4.8 - 10.8 /CUMM) 9.8 RBC (4.20 - 5.40 /CUMM) 4.49 Hgb (12.0 - 16.0 G/DL) 12.4 Hct (37 - 47 %) 37.4 MCV (81.0 - 99.0 FL) 83.3 MCH (27.0 - 31.0 PG) 27.6 RDW (11.5 - 14.5 %) 14.6 H Plt Count (130 - 400 /CUMM) 409 H MPV (7.4 - 10.4 FL) 7.9 Gran % (42.2 - 75.2 %) 79.5 H Lymphocytes % (20.5 - 51.1 %) 11.4 L Monocytes % (1.7 - 9.3 %) 8.2 Eosinophils % (0 - 5 %) 0.2 Basophils % (0.0 - 2.0 %) 0.7 Absolute Granulocytes (1.4 - 6.5 /CUMM) 7.8 H Absolute Lymphocytes (1.2 - 3.4 /CUMM) 1.1 L Absolute Monocytes (0.10 - 0.60 /CUMM) 0.8 H Absolute Eosinophils (0.0 - 0.7 /CUMM) 0 Absolute Basophils (0.0 - 0.2 /CUMM) 0.1 PUBS MCHC (33.0 - 37.0 G/DL) 33.2 Imaging/Other Studies: *No imaging studies were obtained on admission. 09/04/2016: EKG- NSR @ 80, borderline LAD, ventricular bigeminy, NSST inferiorly. 09/05/2016: [id number] VIEWS- Nonspecific bowel gas pattern, without findings indicative of obstruction or ileus. No radiographic findings suggestive of megacolon in the setting of ulcerative colitis.
--- NOTE | 2016-09-07 09:15 | PN- Att Addend ---
Attending Addendum Attending Brief Note Patient denies abdominal pain and diarrhea improved General Appearance: Alert, No Acute Distress Skin: Grossly normal HEENT: PEERLA Neck: Supple, No JVD Cardiovascular: Regular Rate, Normal S1, Normal S2, No Murmurs Lungs: Clear to Auscultation, Normal Air Movement Abdomen: Normal Bowel Sounds, Soft, No Tenderness Neurological: Normal Speech, Strength at 5/5 X4 Ext, Cranial Nerves 3-12 NL, Reflexes 2+ Extremities: No Clubbing, No Cyanosis, No Edema Vascular: Normal Pulses Assessment 71-year-old with history of ulcerative colitis presenting with bloody and mucus diarrhea without any associated abdominal pain. She is currently on IV Solu- Medrol. C. difficile pending. Plan to transition to oral steroids in a.m. and possible discharge home. Plan Ulcerative colitis management as per GI Advance diet as tolerated May continue other home medications DVT prophylaxis Current Medications Sig/Timoteo Start time Last Medication Dose Route Stop Time Status Admin Acetaminophen 650 MG Q6P PRN 09/04 2315 AC PO Acetaminophen/ 1 TAB Q6P PRN 09/04 2315 AC Hydrocodone Bitart PO Heparin Sodium 5,000 UNIT Q8 09/04 2310 AC 09/07 (Porcine) SC 0636 Loperamide HCl 2 MG Q6P PRN 09/05 1515 AC 09/06 PO 1007 Mercaptopurine 50 MG DAILY 09/05 1000 AC 09/06 PO 1025 Mesalamine 4 GM AT BEDTIME 09/05 2200 AC DC Mesalamine 1.5 GM DAILY 09/05 1000 AC 09/06 PO 1014 Methylprednisolone 40 MG Q12 09/05 1000 AC 09/06 IV 2222 Omeprazole 20 MG DAILY 09/05 1000 AC 09/06 PO 1007 Oxycodone/ 2 TAB Q6P PRN 09/04 2315 AC Acetaminophen PO Laboratory Tests 09/07 0610 Chemistry Sodium (137 - 145 mmol/L) 134 L Potassium (3.5 - 5.1 mmol/L) 4.2 Chloride (98 - 107 mmol/L) 105 Carbon Dioxide (22 - 30 mmol/L) 28 Anion Gap (5 - 16) 2 L BUN (7 - 17 mg/dL) 14 Creatinine (0.5 - 1.0 mg/dL) 0.7 Estimated GFR (>60 ml/min) > 60 BUN/Creatinine Ratio (7 - 25 %) 20.0 Magnesium (1.6 - 2.3 mg/dL) 1.9 Hematology CBC w Diff NO MAN DIFF REQ WBC (4.8 - 10.8 /CUMM) 7.1 RBC (4.20 - 5.40 /CUMM) 3.33 L Hgb (12.0 - 16.0 G/DL) 9.3 L Hct (37 - 47 %) 27.5 L MCV (81.0 - 99.0 FL) 82.5 MCH (27.0 - 31.0 PG) 28.0 RDW (11.5 - 14.5 %) 15.1 H Plt Count (130 - 400 /CUMM) 304 MPV (7.4 - 10.4 FL) 8.1 Gran % (42.2 - 75.2 %) 85.3 H Lymphocytes % (20.5 - 51.1 %) 10.0 L Monocytes % (1.7 - 9.3 %) 4.4 Eosinophils % (0 - 5 %) 0 Basophils % (0.0 - 2.0 %) 0.3 Absolute Granulocytes (1.4 - 6.5 /CUMM) 6.0 Absolute Lymphocytes (1.2 - 3.4 /CUMM) 0.7 L Absolute Monocytes (0.10 - 0.60 /CUMM) 0.3 Absolute Eosinophils (0.0 - 0.7 /CUMM) 0 Absolute Basophils (0.0 - 0.2 /CUMM) 0 PUBS MCHC (33.0 - 37.0 G/DL) 34.0 Vital Signs Date Time Temp Pulse Resp B/P Pulse O2 O2 Flow FiO2 Ox Delivery Rate 09/07 0756 97.6 62 18 114/64 97 Room Air 09/06 2311 98.2 70 19 100/64 93 09/06 1623 97.7 55 18 110/62 93
--- NOTE | 2016-09-07 09:17 | Patient Discharge Instructions ---
Discharge Instructions General Discharge Information You were seen/treated for: UC flare You had these procedures: none Special Instructions: f/u with PCP & GI doctor within 1 week of d/c Diet Continue normal diet: Yes Recommended Diet: Low Residue Acute Coronary Syndrome Inclusion Criteria At DC or during hospital stay patient has or had the following: ACS DIAGNOSIS No Discharge Core Measures Meds if any: Prescribed or Continued at Discharge Meds if any: NOT Prescribed or Continued at Discharge Congestive Heart Failure Inclusion Criteria At DC or during hospital stay patient has or had the following: CHF DIAGNOSIS No Discharge Core Measures Meds if any: Prescribed or Continued at Discharge Meds if any: NOT Prescribed or Continued at Discharge Cerebrovascular accident Inclusion Criteria At DC or during hospital stay patient has or had the following: CVA/TIA Diagnosis No Discharge Core Measures Meds if any: Prescribed or Continued at Discharge Meds if any: NOT Prescribed or Continued at Discharge Venous thromboembolism Inclusion Criteria VTE Diagnosis No VTE Type NONE VTE Confirmed by (Test) NONE Discharge Core Measures - Per Current guidelines, there needs to be overlap - treatment for the first 5 days of Warfarin therapy. - If discharged on Warfarin prior to 5 days of - overlap therapy, the patient will need to be - assessed for post discharge needs including - *Post discharge parental anticoagulation - *Warfarin and/or parental anticoagulation education - *Follow up date to check INR post discharge At least 5 days overlap therapy as Inpatient No Meds if any: Prescribed or Continued at Discharge Note: Overlap Therapy is Warfarin and Anticoagulant Meds if any: NOT Prescribed or Continued at Discharge
[2016-09-07] MEDS ORDERED: MERCAPTOPURINE50 M1 PO (09:19)
[2016-09-07] MEDS ORDERED: PREDNISONE10 M2 PO ×2 (09:23→09:28)
[2016-09-07 16:09] VITALS: BP 116/60
[2016-09-08 00:28] VITALS: BP 102/50
--- NOTE | 2016-09-08 06:04 | PN- Housestaff ---
Subjective Follow-up For: UC flare Subjective: Patient seen and examined, resting comfortably in her hospital bed. Offers no complaints. Review of Systems Constitutional: Reports: see HPI. Objective Last 24 Hrs of Vital Signs/I&O Vital Signs Date Time Temp Pulse Resp B/P Pulse O2 O2 Flow FiO2 Ox Delivery Rate 09/08 0028 97.6 54 20 102/50 96 09/07 1609 97.3 68 18 116/60 98 09/07 0756 97.6 62 18 114/64 97 Room Air Intake & Output 09/08 0800 09/08 0000 09/07 1600 Intake Total 600 800 Output Total 400 Balance 600 400 Intake, Oral 600 800 Number 1 2 Bowel Movements Output, Urine 400 Physical Exam General Appearance: Alert, Oriented X3, Cooperative HEENT: Atraumatic, PERRLA, EOMI Cardiovascular: Regular Rate, Normal S1, Normal S2, No Murmurs Lungs: Clear to Auscultation, Normal Air Movement Abdomen: Normal Bowel Sounds, Soft, No Tenderness Neurological: Normal Speech, Strength at 5/5 X4 Ext, Normal Tone, Sensation Intact, Cranial Nerves 3-12 NL Extremities: No Clubbing, No Cyanosis Current Medications: Current Medications Sig/Timoteo Start time Last Medication Dose Route Stop Time Status Admin Acetaminophen 650 MG Q6P PRN 09/04 2315 AC PO Acetaminophen/ 1 TAB Q6P PRN 09/04 2315 AC Hydrocodone Bitart PO Heparin Sodium 5,000 UNIT Q8 09/04 2310 AC 09/07 (Porcine) SC 2135 Loperamide HCl 2 MG Q6P PRN 09/05 1515 AC 09/06 PO 1007 Mercaptopurine 50 MG DAILY 09/05 1000 AC 09/07 PO 1006 Mesalamine 4 GM AT BEDTIME 09/05 2200 AC TN Mesalamine 1.5 GM DAILY 09/05 1000 AC 09/07 PO 1005 Methylprednisolone 40 MG Q12 09/05 1000 DC 09/07 IV 09/07 2300 2137 Omeprazole 20 MG DAILY 09/05 1000 AC 09/07 PO 1005 Oxycodone/ 2 TAB Q6P PRN 09/04 2315 AC Acetaminophen PO Patient Medication 1 ED .STK-MED ONE 09/07 1348 DC Teaching ED 09/07 1349 Prednisone 30 MG BID 09/08 1000 AC PO Last 24 Hrs of Lab/Woody Results Last 24 Hrs of Labs/Mics: Laboratory Tests 09/07/16 0610: Anion Gap 2 L, Estimated GFR > 60, BUN/Creatinine Ratio 20.0, Magnesium 1.9, CBC w Diff NO MAN DIFF REQ, RBC 3.33 L, MCV 82.5, MCH 28.0, RDW 15.1 H, MPV 8.1, Gran % 85.3 H, Lymphocytes % 10.0 L, Monocytes % 4.4, Eosinophils % 0, Basophils % 0.3, Absolute Granulocytes 6.0, Absolute Lymphocytes 0.7 L, Absolute Monocytes 0.3, Absolute Eosinophils 0, Absolute Basophils 0, PUBS MCHC 34.0 Assessment/Plan Assessment: Assessment- 1. Ulcerative colitis flareup/chronic diarrhea 2. Weight loss 3. Protein malnutrition 4. Nausea and vomiting 5. Moderate malnutrition Plan- Switch to PO prednisone, mesalamine, 5-MP Tolerated full regular diet well GI recs appreciated Continue pain meds per EMR Stool studies negative Her nausea and vomiting seems to have been alleviated Ambulate patient Appreciate dietary consult/ recs; will place on ensure with all meals Problem List: 1. Gastritis 2. Diverticulosis of colon 3. Hiatal hernia 4. Nausea 5. Diarrhea 6. Failure to thrive 7. Anemia 8. Protein losing enteropathy Pain Ratin Pain Location: none Pain Goal: Remain pain free Pain Plan: per emr Tomorrow's Labs & Rationales: per emr
[2016-09-08 07:47] VITALS: BP 108/60
--- NOTE | 2016-09-08 12:56 | PN- General Surgery ---
Surgical Brief Attending Note Brief Attending Note: Courtesy note. Patient scheduled for outpatient laparoscopic hiatal hernia repair on Sep 21. May be prudent to postpone surgery in light of current issues/ need for steriods. Will d/w patient tomorrow.
--- NOTE | 2016-09-08 14:45 | PN- Gastroenterology ---
Assessment/Plan Assessment/Recommendations: 71-year-old female with known ulcerative colitis, diagnosed 05/05/2016 via colonoscopy, with mild to moderate chronic active colitis from the rectum to the transverse colon, without any dysplasia, malignancy, or granuloma. Stains for CMV were negative. She had some nonspecific raised lumpy bumpy areas, suspicious for pseudopolyps. She previously was on inpatient IV Solu-Medrol, and was tapered, then switched to Uceris. She was last seen in the office 2016.At that time, her Uceris had been stopped 07/29/2016. She was maintained on Apriso 0.375g tab 4 tabs daily, as her insurance company stopped her previous mesalamine, Delzicol. She was also on Rowasa enemas 4g Q bedtime. Her symptoms flared off sterids, and her Uceris 9 mg daily was resumed 09/01/2016. *I previously had long discussions with the patient regarding immunosuppressants, such as 6-MP, or biologic agents, including the risks and benefits, but as she was improving, we held off on these, keep in mind her advanced age, which especially can make biologic agents more risky. The patient presented to the [place] [facility] 09/04/2016 at 5:18 p.m., at which point, she was hemodynamically stable (although bradycardic) & afebrile, and planning of a few weeks of nausea, decreased by mouth intake, and mild diarrhea (< 4x/day max), with occasional rectal bleeding, pus & mucus in the stool, which is baseline for the patient. There is also some mild fecal incontinence She did state however that she has lost 40 pounds since 03/2016. *Some of the above is from a large intrathoracic hiatal hernia, for which she is scheduled for a laparoscopic repair by Dr. Dewey later this month, on 09/21/2016, with the caveat that her ulcerative colitis stabilizes prep. She has chronic mild early satiety, attributed to the hiatal hernia. Her reflux symptoms are stable on outpatient Pepcid 20 mg po BID. Omeprazole (PPI) was previously stopped because of low magnesium levels. There is no history of melena. She denies any fevers, chills, symptoms of UTI, URI, abdminal pain, constipation, or obstipation. There is mild tenesmus. She denies any rashes, aside from some stasis dermatitis changes. There are no acute arthralgias, although she has chronic DJD. She denies any recent antibiotics, recent travel, or NSAID use. There is no point source by history. She denies any raw food ingestion. She was given IV Solu-Medrol 125 mg by the ER, along with IV NS & IV potassium. *Some of the patient's low potassium is from outpatient Lasix use, although she saw vascular surgery and her peripheral edema was felt to be from low protein state. 04/27/2016: *CT ABD & PELVIS W IV CONTRAST 1. Intrathoracic stomach. This alone could cause nausea and pain. 2. Fatty liver. 3. Cholelithiasis. Enlarged gallbladder. 4. Large duodenal diverticulum that seems to mildly compress the distal common bile duct. 5. Findings that would suggest left-sided colitis. Diverticulosis of the sigmoid with mild case of diverticulitis. 6. Solitary right kidney. 7. Portion of the body of the pancreas drawn towards the diaphragmatic hiatus. 05/06/2016: XRY-CHEST XRAY, PA AND LATERAL Mild cardiomegaly. No acute pneumonic process. Large hiatal hernia. 08/11/2016: US-EXT BILAT VENOUS DOPPLER- Negative for DVT. Small left Elhman's cyst. 09/04/2016: Admission labs- WBC 9.8 (80% gran/8 gra Ab), H/H 12.4/37.4, normal MCV, PLT 409, Pt 13.7, INr 1.31, PTT 29. glu 79. BUN/Cr 14/0.7, GFR > 60, *K 3.0, HCO3 33, AG 5, Mg 1.8, Ca2+ 7.7, albumin 2.2, globulin 3.5, TBil 0.7, alk phos 133, AST 25, ALT 37, toponon < .01; U/A- clear, yellow, 1.025, 6.0, rare RBC, 3-5 WBC, few bact, many epithelial cells, 15+ ketone, tr protein, negative icto, urobilinogen 0.2, negative nitrite, small esterase. 09/05/2016: WBC 12.9 (post steroids), H/H 10.7/32.2, PLT 357, stable electrolytes except forborderline Na 135, K 3.7, HCO3 27, AG 7, Mg2+ 1.8, PO4 3.9, BUN/Cr 12/0.7, GFR > 60 *No imaging studies were obtained on admission. 09/04/2016: EKG- NSR @ 80, borderline LAD, ventricular bigeminy, NSST inferiorly. She is followed for primary care by Dr. Grady and Dr. Renee, for [facility] [employer] by Dr. Gonzalez, and for surgery by Dr. Dewey, non-hypertensive, non-diabetic, DJD , osteoporosis, fatty liver, incidental cholelithiasis, incidental duodenal diverticulum, right inguinal hernia, history of hypokalemia and hypomagnesemia, originally seen in inpatient GI consultation at [place] 04/28/2016, when she was admitted to [facility] 04/27/2016 to 05/02/2016, for diarrhea and an abnormal CAT scan. She was to have seen me in the office in GI consultation a few weeks later , but was admitted for the above. 04/27/2016: CT scan of the abdomen and pelvis with IV contrast- intrathoracic stomach, large hiatal hernia, fatty liver, cholelithiasis, large duodenal diverticulum near a 9 mm CBD, colitis from the hepatic flexure to the sigmoid, solitary right kidney, & fat-containing right inguinal hernia (*see above). *Additionally, the CT was initially read as sigmoid diverticulitis, but in retrospect, there was no diverticulitis, just diverticulosis and the colitis. The patient remotely had right total knee replacement in 12/2005, with redo in 02/2014, and cataract surgery OU. 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 Upon admission 04/27/2016, she had OB-positive stool with hyperkalemia. Please note, 06/18/2002: baseline surgical colonoscopy without biopsies by Dr. Meneses (purged from the computer)- reportedly "normal". The patient is an ex-25 pack year smoker, stopping in 1989. Please note, 04/27/2016: *stool culture, C. difficile, Shiga toxin, Crypto Ag, & Giardia Ag- all negative. The patient was initially treated with Ceftriaxone and Flagyl for questionable sigmoid diverticulitis then, however the antibiotics were stopped in 2-3 days, after re-reading the CT with radiology. 04/27/2016: Positive lactoferrin. 04/29/2016: ESR 1, elevated CRP 17.3, normal TFTs with normal TSH. Admission labs 04/27/2016: WBC 10.1 (borderline left shift), H/H 14.1/42.2 (hemoconcentrated), normal MCV, PLT 395K, BUN/Cr 16/0.7, GFR > 60, potassium 2.9, normal LFTs, except decreased albumin 2.6, globulin 3.2. 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 04/29/2016: normal IgA 123, DGP Ab- negative, low carotene < 2. 04/30/2016: tTG Ab- negative. There is no family history of any GI malignancy, GI disease, or inherited liver disease. She was discharged from [place] to home 05/02/2016. 05/05/2016: *Outpatient combined baseline EGD to the third portion of the duodenum (hiatal hernia evaluation), plus followup colonoscopy to the terminal ileum with a pediatric colonoscope (for colitis)- random small bowel biopsy second and third portions of the duodenum- negative, large periampullary duodenal diverticulum, multiple superficial gastric erosions with tiny eschars- biopsies with acute erosive gastritis, H. pylori- negative, large hiatal hernia, Z-line at 30 cm, with mild to moderate GERD on biopsies. The patient appeared to have pancolitis endoscopically. There was no gross backwash ileitis. The colitis seemed mild to moderate in the rectum, more severe from the sigmoid to the upper right colon, then diminishing to the cecum, endoscopically. There appeared to be some nonspecific lumpy bumpy areas in a patchy fashion, probably representing pseudopolyps, and this will have to be readdressed after treatment, mild left sided diverticula, mild internal hemorrhoids. *Colon biopsy stains for CMV- negative. Biopsies of terminal ileum, cecum, and right colon- negative. Biopsies of the transverse colon and left colon- mild chronic active colitis. Biopsies of the sigmoid- moderate chronic active colitis. Biopsy of the rectum- mild chronic active colitis, without dysplasia or malignancy. There were no granulomas. The patient was then readmitted to 1 day postop, from 2015 to 05/10/2016 with increased diarrhea, hypokalemia, hypomagnesemia and dehydration. *Please note, 05/05/2016: normal fasting gastrin 17, *QuantiFeron TB testing- indeterminate (low anergy), TPMT genotype and phenotype- normal genotype and normal enzyme activity; Hep A Ab, Hep Bs Ag, Hep B core Ab, & Hep C Ab- all negative, HIV- negative. 05/06/2016: *Chest x-ray- negative (with regard to indeterminate QuantiFeron testing), except for HH. Regarding the peripheral edema, 05/06/2016: Doppler LE B/L- negative for DVT. She was put on IV Solu Medrol 40 mg BID, with marked improvement. This was switched to Prednisone 30 mg twice a day, Delzicol 400 mg tablet 3 tabs 3 times a day, plus Imodium as needed. The patient was already on Fosamax. She was initially put on PPI for the gastric erosions, however this was switched to Pepcid because of the low magnesium. However, she was put back on Omeprazole prior to discharge by the housestaff. Ms. Surekha Orozco returned to the office 08/02/2016, accompanied by her sister- in-law, Angela, last in the office 05/20/2016. There was no postprandial pain to suggest intestinal angina. Please note, recent labs show that the patient was mildly hypothyroid, not hyperthyroid, with regard to the weight loss. She has erroneously continued her Omeprazole in addition to the Pepcid 20 mg BID. The Omeprazole was supposed to have been stopped last visit 05/20/2016, because of the low magnesium levels, which were felt to be mostly from diarrhea and from her diuretics. GI labs 05/24/2016: WBC 9.9, H/H 10.9/33.3, normal MCV, PLT 299, ESR 15, CRP 0.7, normal CMP except for mild contraction alkalosis and mild malnutrition, with albumin 2.9, globulin 2.8, other LFTs normal. 07/05/2016: normal fecal elastase 439 obtained for weight loss, going against pancreatic insufficiency. Labs per PMD 07/05/2016: WBC 6.3, H/H 12.4/38.3, PLT 356, ESR 5, normal CMP except albumin 2.6, globulin 3.4 with other LFTs negative, borderline elevated TSH 4.94, normal FT4 1.46, magnesium 1.6. The patient was stable off the Uceris, when last in the office 08/02/2016. She had not yet been vaccinated against Hepatitis A and B. She never went for he Hp Bs Ab. Assuming she was not immune, she was again told to follow up with her PMD to be semi-electively vaccinated against both Hepatitis A and B, in case more heavy duty immunosuppressants, such as 6MP, and/or biologic agents are needed. *The risk of biologic agents, immunosuppressants and/or steroids were previously discussed with the patient and include but are not limited to diabetes, hypertension, peptic ulcer disease, fluid overload, immunosuppression, myopathy, adrenal insufficiency, AVN, osteoporosis (which she already has), cataracts, pancytopenia, alopecia, glaucoma, TB, lymphoma, skin cancer, malignancy, hepatotoxicity, infusion reaction, lupus-like syndrome, myelosuppression, pancreatitis and/or opportunistic infections. She is agreeable to these if needed. When last in the office 08/02/2016, I advised a repeat colonoscopy with a pediatric colonoscope with chromoendoscopy in 09/2016 to reassess what appeared to be lumpy bumpy areas that are probably pseudopolyps. I also advised repeating an EGD at that time, in view of the numerous diffuse gastric erosions with eschars, which were borderline shallow ulcerations. The risks & benefits of EGD/colonoscopy were again discussed with the patient, and she wished to proceed. She was told to increase her Ensure from once a day to 3 times a day. If further weight loss occurs, consideration was for CT enterography, but again the above appeared to be dietary related. The 07/05/2016: normal fecal elastase of 439 goes against pancreatic insufficiency.\\ *The patient's ulcerative colitis has flared off of Uceris. She has previously responded to IV steroids, but these are used to induce remission, not maintain remission. Because of her advanced age, I previously had held off on immunosuppressants such as 6-MP, or biologic agents, however it is clear that she will need at least some of these. The risks and benefits of these have been discussed with the patient, & she wishes to proceed, if needed. Additionally, her malnutrition is due in part to her large hiatal hernia, which needs to be surgically corrected after her ulcerative colitis stabilizes. Her magnesium is currently stable (was off PPI). Her potassium has been repleted. Some of her electrolyte abnormalities are from outpatient Lasix, however her peripheral edema is due to protein losing enteropathy, not from CHF clinically (although there is no recent echocardiogram in the computer). 09/05/2016: [id number] VIEWS- Nonspecific bowel gas pattern, without findings indicative of obstruction or ileus. No radiographic findings suggestive of megacolon in the setting of ulcerative colitis. 09/05/2016: stool C&S, Shiga toxin- negative. 09/06/2016: *C. difficile- negative. 09/06/2016: *Hep Bs Ab < 5 (negative). 09/06/2016: *CRP 2.8, *ESR 3. *As of 09/06/2016, the patient remains hemodynamically stable and afebrile. Her current GI regimen includes Rowasa enema 4g pr Q bedtime, Apriso .375g tab- 4 tabs daily (*the patient is taking her own), IV SoluMedrol 40 mg BID, 6MP 50 mg daily, Imodium as needed & Omeprazole 20 mg daily. She is on sc heparin for DVT prophylaxis. She has not yet been seen by the nutrition department. She is ambulating. She tolerated clears, but still has diarrhea. She denies any abdominal pain. Her nausea is gone. *As of 09/07/2016, the patient remains hemodynamically stable & afebrile. *She was seen by Nutrition on 09/06/2016 & Ensure Carpio was advised TID with meals. Her diarrhea is much improved on IV steroids, with *6MP 50 mg daily started on 09/05/2016, along with Apriso and Rowasa enemas. She only needed Imodium once yesterday. She tolerated full liquids, without any nausea, vomiting, or abdominal pain, and is ambulating. Potassium has been repleted. Magnesium is stable. *As of 09/08/2016, the patient's IV Solu-Medrol 40 mg Q12h was switched to Prednisone 30 mg po BID. Her other GI medications remain the same. She remains hemodynamically stable and afebrile. She has no significant diarrhea, which is essentially gone. There is no rectal bleeding. She denies any nausea, vomiting, or abdominal pain. She feels much improved & is tolerating a low residue diet. SUGGEST: *Continue low residue diet po as tolerated. *Ensure Carpio supplements TID with meals. *Continue Prednisone 30 mg po BID, which will be slowly tapered by myself as an outpatient over the next 6-8 weeks, to use as a bridge until the 6MP becomes therapeutic. *The patient may use her Apriso 0.375 g tab-4 tabs po daily. *Rowasa enema 4g pr Q bedtime. *Continue 6MP 50 mg po daily (this will take 2-3 months to achieve therapeutic levels), with consideration for outpatient biologic agents. *Imodium as needed, watching for signs of megacolon. Serial abdominal exams. Will defer TPN for now, as the patient's po intake is stable. *Advise semi-elective Hep A & B vaccinations. DVT prophylaxis with ALPS /sc heparin. Mobilize patient. Follow-up blood sugars on steroids, as per medical team. Hold Lasix. Follow-up electrolytes (K+ repleted). *Zofran 4 mg IV Q6h as needed. *May carefully continue Omeprazle 20 mg daily, but if magnesium drops, would switch PPI to H2B. If needed, replete Mg2+ parenterally, as IV Mg2+ can exacerbate diarrhea. Check I/O's. *Eventual hiatal hernia repair (* tentatively scheduled by Dr. Dewey for 09/21/2016), with the caveat that the patient's ulcerative colitis is under beter control by then. Eventual repeat EGD/colonoscopy with the pediatric colonoscope & chromoendoscopy in 09/2016, to reassess the lumpy bumpy areas that are probably pseudopolyps, as well as the numerus diffuse gastric erosions with eschars/borderline shallow ulcratons. * Consideration for repeat CTE, depending on clinical course (no need at present). *Assuming the patient continues to improve, for tentative discharge to home on 09/09/2016, on the above GI medications, with follow-up GI OV in 1-2 weeks. The above findings and recommendations were again discussed with the medical house staff, and previously with Dr. Grady & Dr. Dewey. Problem List: 1. Ulcerative colitis 2. Weight loss 3. Failure to thrive 4. Malnutrition 5. Diarrhea 6. Nausea 7. Hypokalemia 8. Hiatal hernia 9. Diverticulosis of colon 10. Gastritis 11. Fatty liver 12. Cholelithiasis 13. Duodenal diverticulum 14. Right inguinal hernia Subjective Subjective: *As of 09/08/2016, the patient's IV Solu-Medrol 40 mg Q12h was switched to Prednisone 30 mg po BID. Her other GI medications remain the same. She remains hemodynamically stable and afebrile. She has no significant diarrhea, which is essentially gone. There is no rectal bleeding. She denies any nausea, vomiting, or abdominal pain. She feels much improved & is tolerating a low residue diet. Review of Systems: Full 14 point review of systems otherwise noncontributory, and as above. Review of Systems Constitutional: Reports; weakness (improving) & weight loss Denies: chills, diaphoresis, fever, malaise. EENTM: Denies: blurred vision, double vision, visual changes, eye pain, eye drainage, eye tearing, icterus, ear discharge, ear pain, ear redness, hearing changes, nasal congestion, epistaxis, nasal pain, throat pain, throat swelling, mouth pain, tooth pain. Cardiovascular: Reports: peripheral edema (feet B/L)- improving. Denies: chest pain, orthopena, palpitations, syncope. Respiratory: Denies: cough, hemoptysis, orthopnea, short of breath, sputum production, stridor, wheezing. GI: Reports: diarrhea (improved); bloody stool (scant), nausea (gone). Denies: abdminal pain, bloating, constipation, distention, bowel incontinence, melena, change in stool, vomiting, steatorrhea. Genitourinary: Denies: discharge, dysuria, frequency, hematuria, hesitation, nocturia, pain, urgency. Musculoskeletal: Reports: joint pain (R TKR x 2). Denies: back pain, gout, joint swelling, muscle pain, muscle stiffness, neck pain. Skin: Denies: cysts, change in skin color, change in hair/nails, dryness, erythema, jaundice, lesions, lymphangitis, lumps, moles, rash. Neurological/Psychological: Reports; mild anxiety Denies: ataxia, cognitive dysfunction, confusion, depressed, dementia, emotional problems, headache, numbness, paresthesia, pre-existing deficit, petit mal seizures, tingling, tremors, tonic-clonic seizures, unable to move lower ext, unable to move upper ext. Hematologic/Endocrine: Denies: bruising, bleeding, polyuria, polydipsia. Immunologic/Allergic: Denies: splenectomy, HIV/AIDS, lymphadenopathy. All Other Systems: Reviewed and Negative Objective Vital Signs and I&Os Vital Signs Date Time Temp Pulse Resp B/P Pulse O2 O2 Flow FiO2 Ox Delivery Rate 09/08 0647 98.1 56 20 108/60 96 Room Air 09/08 0028 97.6 54 20 102/50 96 09/07 1609 97.3 68 18 116/60 98 Intake & Output 09/08 1600 09/08 0400 09/07 1600 09/07 04009/06 1600 09/06 0400 Intake Total 910 600 427 015 5223 350 Output Total 400 300 550 Balance 910 600 400 200 920 -200 Intake, IV 10 400 150 Intake, Oral 900 600 800 200 820 200 Number 0 1 2 2 1 Bowel Movements Output, Urine 400 300 550 Patient 113 lb Weight Physical Exam: Well-developed, slightly malnourished, thin, elderly female, in no apparent distress. Pleasant. Slightly anxious. Sclera anicteric. Conjunctiva pink. Oropharynx clear. No oral thrush. No aphthous ulcers. There is no adenopathy, thyromegaly, or JVD. No peripheral stigmata of inflammatory bowel disease or chronic liver disease on exam. No CVA tenderness. No spiders on the anterior chest wall. Breast & pelvc exams: API. Lungs: clear to A&P. Heart exam: regular rate rhythm, S1 and S2, without any murmur. Abdominal exam: normal bowel sounds, soft belly, nontender, without guarding or rebound. Negative Ricketts sign. Small reducible RIH, otherwise without mass. No organomegaly. No fluid shift. No pulsatile mass. *Clinically, without megacolon. Repeat digital rectal exam: deferred, as just done at 05/05/2016: colonoscopy. Extremities: without cyanosis or clubbing. < 1+ pitting edema LE B/L, without palpable cords. B/L LE ALPS. Post right TKR x 2. DJD, without acute arthropathy. No rash, except for mininmal stasis dermatitis changes LE B/L, L > R (improved). Distal pulses 2+ bilaterally. DTRs 2+ bilaterally. Alert and O x 3. Current Medications: Current Medications Sig/Timoteo Start time Last Medication Dose Route Stop Time Status Admin Acetaminophen 650 MG Q6P PRN 09/04 231 AC PO Acetaminophen/ 1 TAB Q6P PRN 09/04 2315 AC Hydrocodone Bitart PO Heparin Sodium 5,000 UNIT Q8 09/04 231 AC 09/08 (Porcine) SC 1443 Loperamide HCl 2 MG Q6P PRN 09/05 1515 AC 09/06 PO 1007 Mercaptopurine 50 MG DAILY 09/05 1000 AC 09/08 PO 0924 Mesalamine 4 GM AT BEDTIME 09/05 2200 AC CO Mesalamine 1.5 GM DAILY 09/05 1000 AC 09/08 PO 0924 Methylprednisolone 40 MG Q12 09/05 1000 DC 09/07 IV 09/07 2300 2137 Omeprazole 20 MG DAILY 09/05 1000 AC 09/08 PO 0924 Oxycodone/ 2 TAB Q6P PRN 09/04 2314 AC Acetaminophen PO Prednisone 30 MG BID 09/08 1000 AC 09/08 PO 0924 Results Pertinent Lab Results: Laboratory Tests 09/07 09/06 0610 0636 Chemistry Sodium (137 - 145 mmol/L) 134 L 135 L Potassium (3.5 - 5.1 mmol/L) 4.2 4.4 Chloride (98 - 107 mmol/L) 105 105 Carbon Dioxide (22 - 30 mmol/L) 28 25 Anion Gap (5 - 16) 2 L 5 BUN (7 - 17 mg/dL) 14 14 Creatinine (0.5 - 1.0 mg/dL) 0.7 0.8 Estimated GFR (>60 ml/min) > 60 > 60 BUN/Creatinine Ratio (7 - 25 %) 20.0 17.5 Magnesium (1.6 - 2.3 mg/dL) 1.9 1.9 C-Reactive Prot, Quant (<1.0 mg/dL) 2.8 H C-React Prot High Sens (1.0 - 3.0 mg/L) > 15.0 H Hematology CBC w Diff NO MAN DIFF REQ NO MAN DIFF REQ WBC (4.8 - 10.8 /CUMM) 7.1 9.8 RBC (4.20 - 5.40 /CUMM) 3.33 L 3.44 L Hgb (12.0 - 16.0 G/DL) 9.3 L 9.6 L Hct (37 - 47 %) 27.5 L 28.9 L MCV (81.0 - 99.0 FL) 82.5 83.9 MCH (27.0 - 31.0 PG) 28.0 27.9 RDW (11.5 - 14.5 %) 15.1 H 15.6 H Plt Count (130 - 400 /CUMM) 304 340 MPV (7.4 - 10.4 FL) 8.1 8.2 Gran % (42.2 - 75.2 %) 85.3 H 83.7 H Lymphocytes % (20.5 - 51.1 %) 10.0 L 9.4 L Monocytes % (1.7 - 9.3 %) 4.4 6.6 Eosinophils % (0 - 5 %) 0 0 Basophils % (0.0 - 2.0 %) 0.3 0.3 Absolute Granulocytes (1.4 - 6.5 /CUMM) 6.0 8.2 H Absolute Lymphocytes (1.2 - 3.4 /CUMM) 0.7 L 0.9 L Absolute Monocytes (0.10 - 0.60 /CUMM) 0.3 0.6 Absolute Eosinophils (0.0 - 0.7 /CUMM) 0 0 Absolute Basophils (0.0 - 0.2 /CUMM) 0 0 PUBS MCHC (33.0 - 37.0 G/DL) 34.0 33.3 ESR Westergren (0 - 20 MM) 3 Serology Hep Bs Antibody (> OR = 10 mIU/mL) <5 L Imaging/Other Studies: *No imaging studies were obtained on admission. 09/04/2016: EKG- NSR @ 80, borderline LAD, ventricular bigeminy, NSST inferiorly. 09/05/2016: [id number] VIEWS- Nonspecific bowel gas pattern, without findings indicative of obstruction or ileus. No radiographic findings suggestive of megacolon in the setting of ulcerative colitis.
[2016-09-08 16:12] VITALS: BP 120/64
--- NOTE | 2016-09-08 18:18 | PN- Att Addend ---
Attending Addendum Attending Brief Note Patient denies abdominal pain and diarrhea improved General Appearance: Alert, No Acute Distress Skin: Grossly normal HEENT: PEERLA Neck: Supple, No JVD Cardiovascular: Regular Rate, Normal S1, Normal S2, No Murmurs Lungs: Clear to Auscultation, Normal Air Movement Abdomen: Normal Bowel Sounds, Soft, No Tenderness Neurological: Normal Speech, Strength at 5/5 X4 Ext, Cranial Nerves 3-12 NL, Reflexes 2+ Extremities: No Clubbing, No Cyanosis, No Edema Vascular: Normal Pulses Assessment 71-year-old with history of ulcerative colitis presenting with bloody and mucus diarrhea without any associated abdominal pain. She is currently on oral prednisone. C. difficile negative. discharge home in am. Plan Ulcerative colitis management as per GI May continue other home medications DVT prophylaxis Current Medications Sig/Timoteo Start time Last Medication Dose Route Stop Time Status Admin Acetaminophen 650 MG Q6P PRN 09/04 2315 AC PO Acetaminophen/ 1 TAB Q6P PRN 09/04 2315 AC Hydrocodone Bitart PO Heparin Sodium 5,000 UNIT Q8 09/04 2310 AC 09/08 (Porcine) SC 1443 Loperamide HCl 2 MG Q6P PRN 09/05 1515 AC 09/08 PO 1757 Mercaptopurine 50 MG DAILY 09/05 1000 AC 09/08 PO 0924 Mesalamine 4 GM AT BEDTIME 09/05 2200 AC WI Mesalamine 1.5 GM DAILY 09/05 1000 AC 09/08 PO 0924 Methylprednisolone 40 MG Q12 09/05 1000 DC 09/07 IV 09/07 2300 2137 Omeprazole 20 MG DAILY 09/05 1000 AC 09/08 PO 0924 Oxycodone/ 2 TAB Q6P PRN 09/04 2315 AC Acetaminophen PO Prednisone 30 MG BID 09/08 1000 AC 09/08 PO 0924 Vital Signs Date Time Temp Pulse Resp B/P Pulse O2 O2 Flow FiO2 Ox Delivery Rate 09/08 1612 97.4 72 20 120/64 97 09/08 0747 98.1 56 20 108/60 96 Room Air 09/08 0028 97.6 54 20 102/50 96
[2016-09-08 23:33] VITALS: BP 120/56
[2016-09-09] MEDS ORDERED: PREDNISONE10 M2 PO (05:49)
--- NOTE | 2016-09-09 05:51 | PN- Housestaff ---
Subjective Follow-up For: UC flare Subjective: Patient seen and examined, resting comfortably in her hospital bed. Offers no complaints. Review of Systems Constitutional: Reports: see HPI. Objective Last 24 Hrs of Vital Signs/I&O Vital Signs Date Time Temp Pulse Resp B/P Pulse O2 O2 Flow FiO2 Ox Delivery Rate 09/08 2333 97.9 67 18 120/56 97 Room Air 09/08 1612 97.4 72 20 120/64 97 09/08 0747 98.1 56 20 108/60 96 Room Air Intake & Output 09/09 0800 09/09 0000 09/08 1600 Intake Total 850 910 Output Total Balance 850 910 Intake, IV 10 Intake, Oral 850 900 Number 2 0 Bowel Movements Physical Exam General Appearance: Alert, Oriented X3, Cooperative, No Acute Distress HEENT: Atraumatic, PERRLA, EOMI Cardiovascular: Regular Rate, Normal S1, Normal S2 Lungs: Clear to Auscultation, Normal Air Movement Abdomen: Normal Bowel Sounds, Soft, No Tenderness Assessment/Plan Assessment: Assessment- 1. Ulcerative colitis flareup/chronic diarrhea 2. Weight loss 3. Protein malnutrition 4. Nausea and vomiting 5. Moderate malnutrition Plan- Switch to PO prednisone, mesalamine, 5-MP Tolerated full regular diet well GI recs appreciated Continue pain meds per EMR Stool studies negative Her nausea and vomiting have resolved Ambulate patient Appreciate dietary consult/ recs; will place on ensure with all meals d/c home today Problem List: 1. Hiatal hernia 2. Duodenal diverticulum 3. Weight loss 4. Failure to thrive 5. Nausea 6. Gastritis 7. Diverticulosis of colon Pain Ratin Pain Location: NONE Pain Goal: Remain pain free Pain Plan: PER EMR Tomorrow's Labs & Rationales: NONE
[2016-09-09 07:54] VITALS: BP 112/64
--- NOTE | 2016-09-09 08:03 | PN- Gastroenterology ---
Assessment/Plan Assessment/Recommendations: 71-year-old female with known ulcerative colitis, diagnosed 05/05/2016 via colonoscopy, with mild to moderate chronic active colitis from the rectum to the transverse colon, without any dysplasia, malignancy, or granuloma. Stains for CMV were negative. She had some nonspecific raised lumpy bumpy areas, suspicious for pseudopolyps. She previously was on inpatient IV Solu-Medrol, and was tapered, then switched to Uceris. She was last seen in the office 2016.At that time, her Uceris had been stopped 07/29/2016. She was maintained on Apriso 0.375g tab 4 tabs daily, as her insurance company stopped her previous mesalamine, Delzicol. She was also on Rowasa enemas 4g Q bedtime. Her symptoms flared off sterids, and her Uceris 9 mg daily was resumed 09/01/2016. *I previously had long discussions with the patient regarding immunosuppressants, such as 6-MP, or biologic agents, including the risks and benefits, but as she was improving, we held off on these, keep in mind her advanced age, which especially can make biologic agents more risky. The patient presented to the [facility] 09/04/2016 at 5:18 p.m., at which point, she was hemodynamically stable (although bradycardic) & afebrile, and planning of a few weeks of nausea, decreased by mouth intake, and mild diarrhea (< 4x/day max), with occasional rectal bleeding, pus & mucus in the stool, which is baseline for the patient. There is also some mild fecal incontinence She did state however that she has lost 40 pounds since 03/2016. *Some of the above is from a large intrathoracic hiatal hernia, for which she is scheduled for a laparoscopic repair by Dr. Dewey later this month, on 09/21/2016, with the caveat that her ulcerative colitis stabilizes prep. She has chronic mild early satiety, attributed to the hiatal hernia. Her reflux symptoms are stable on outpatient Pepcid 20 mg po BID. Omeprazole (PPI) was previously stopped because of low magnesium levels. There is no history of melena. She denies any fevers, chills, symptoms of UTI, URI, abdminal pain, constipation, or obstipation. There is mild tenesmus. She denies any rashes, aside from some stasis dermatitis changes. There are no acute arthralgias, although she has chronic DJD. She denies any recent antibiotics, recent travel, or NSAID use. There is no point source by history. She denies any raw food ingestion. She was given IV Solu-Medrol 125 mg by the ER, along with IV NS & IV potassium. *Some of the patient's low potassium is from outpatient Lasix use, although she saw vascular surgery and her peripheral edema was felt to be from low protein state. 04/27/2016: *CT ABD & PELVIS W IV CONTRAST 1. Intrathoracic stomach. This alone could cause nausea and pain. 2. Fatty liver. 3. Cholelithiasis. Enlarged gallbladder. 4. Large duodenal diverticulum that seems to mildly compress the distal common bile duct. 5. Findings that would suggest left-sided colitis. Diverticulosis of the sigmoid with mild case of diverticulitis. 6. Solitary right kidney. 7. Portion of the body of the pancreas drawn towards the diaphragmatic hiatus. 05/06/2016: XRY-CHEST XRAY, PA AND LATERAL Mild cardiomegaly. No acute pneumonic process. Large hiatal hernia. 08/11/2016: US-EXT BILAT VENOUS DOPPLER- Negative for DVT. Small left Lehman's cyst. 09/04/2016: Admission labs- WBC 9.8 (80% gran/8 gra Ab), H/H 12.4/37.4, normal MCV, PLT 409, Pt 13.7, INr 1.31, PTT 29. glu 79. BUN/Cr 14/0.7, GFR > 60, *K 3.0, HCO3 33, AG 5, Mg 1.8, Ca2+ 7.7, albumin 2.2, globulin 3.5, TBil 0.7, alk phos 133, AST 25, ALT 37, toponon < .01; U/A- clear, yellow, 1.025, 6.0, rare RBC, 3-5 WBC, few bact, many epithelial cells, 15+ ketone, tr protein, negative icto, urobilinogen 0.2, negative nitrite, small esterase. 09/05/2016: WBC 12.9 (post steroids), H/H 10.7/32.2, PLT 357, stable electrolytes except forborderline Na 135, K 3.7, HCO3 27, AG 7, Mg2+ 1.8, PO4 3.9, BUN/Cr 12/0.7, GFR > 60 *No imaging studies were obtained on admission. 09/04/2016: EKG- NSR @ 80, borderline LAD, ventricular bigeminy, NSST inferiorly. She is followed for primary care by Dr. Grady and Dr. Renee, for [employer] by Dr. Gonzalez, and for surgery by Dr. Dewey, non-hypertensive, non-diabetic, DJD , osteoporosis, fatty liver, incidental cholelithiasis, incidental duodenal diverticulum, right inguinal hernia, history of hypokalemia and hypomagnesemia, originally seen in inpatient GI consultation at [facility] 04/28/2016, when she was admitted to [facility] 04/27/2016 to 05/02/2016, for diarrhea and an abnormal CAT scan. She was to have seen me in the office in GI consultation a few weeks later , but was admitted for the above. 04/27/2016: CT scan of the abdomen and pelvis with IV contrast- intrathoracic stomach, large hiatal hernia, fatty liver, cholelithiasis, large duodenal diverticulum near a 9 mm CBD, colitis from the hepatic flexure to the sigmoid, solitary right kidney, & fat-containing right inguinal hernia (*see above). *Additionally, the CT was initially read as sigmoid diverticulitis, but in retrospect, there was no diverticulitis, just diverticulosis and the colitis. The patient remotely had right total knee replacement in 12/2005, with redo in 02/2014, and cataract surgery OU. 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 Upon admission 04/27/2016, she had OB-positive stool with hyperkalemia. Please note, 06/18/2002: baseline surgical colonoscopy without biopsies by Dr. Meneses (purged from the computer)- reportedly "normal". The patient is an ex-25 pack year smoker, stopping in 1989. Please note, 04/27/2016: *stool culture, C. difficile, Shiga toxin, Crypto Ag, & Giardia Ag- all negative. The patient was initially treated with Ceftriaxone and Flagyl for questionable sigmoid diverticulitis then, however the antibiotics were stopped in 2-3 days, after re-reading the CT with radiology. 04/27/2016: Positive lactoferrin. 04/29/2016: ESR 1, elevated CRP 17.3, normal TFTs with normal TSH. Admission labs 04/27/2016: WBC 10.1 (borderline left shift), H/H 14.1/42.2 (hemoconcentrated), normal MCV, PLT 395K, BUN/Cr 16/0.7, GFR > 60, potassium 2.9, normal LFTs, except decreased albumin 2.6, globulin 3.2. 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 04/29/2016: normal IgA 123, DGP Ab- negative, low carotene < 2. 04/30/2016: tTG Ab- negative. There is no family history of any GI malignancy, GI disease, or inherited liver disease. She was discharged from [facility] to home 05/02/2016. 05/05/2016: *Outpatient combined baseline EGD to the third portion of the duodenum (hiatal hernia evaluation), plus followup colonoscopy to the terminal ileum with a pediatric colonoscope (for colitis)- random small bowel biopsy second and third portions of the duodenum- negative, large periampullary duodenal diverticulum, multiple superficial gastric erosions with tiny eschars- biopsies with acute erosive gastritis, H. pylori- negative, large hiatal hernia, Z-line at 30 cm, with mild to moderate GERD on biopsies. The patient appeared to have pancolitis endoscopically. There was no gross backwash ileitis. The colitis seemed mild to moderate in the rectum, more severe from the sigmoid to the upper right colon, then diminishing to the cecum, endoscopically. There appeared to be some nonspecific lumpy bumpy areas in a patchy fashion, probably representing pseudopolyps, and this will have to be readdressed after treatment, mild left sided diverticula, mild internal hemorrhoids. *Colon biopsy stains for CMV- negative. Biopsies of terminal ileum, cecum, and right colon- negative. Biopsies of the transverse colon and left colon- mild chronic active colitis. Biopsies of the sigmoid- moderate chronic active colitis. Biopsy of the rectum- mild chronic active colitis, without dysplasia or malignancy. There were no granulomas. The patient was then readmitted to [facility] 1 day postop, from 2015 to 05/10/2016 with increased diarrhea, hypokalemia, hypomagnesemia and dehydration. *Please note, 05/05/2016: normal fasting gastrin 17, *QuantiFeron TB testing- indeterminate (low anergy), TPMT genotype and phenotype- normal genotype and normal enzyme activity; Hep A Ab, Hep Bs Ag, Hep B core Ab, & Hep C Ab- all negative, HIV- negative. 05/06/2016: *Chest x-ray- negative (with regard to indeterminate QuantiFeron testing), except for HH. Regarding the peripheral edema, 05/06/2016: Doppler LE B/L- negative for DVT. She was put on IV Solu Medrol 40 mg BID, with marked improvement. This was switched to Prednisone 30 mg twice a day, Delzicol 400 mg tablet 3 tabs 3 times a day, plus Imodium as needed. The patient was already on Fosamax. She was initially put on PPI for the gastric erosions, however this was switched to Pepcid because of the low magnesium. However, she was put back on Omeprazole prior to discharge by the housestaff. Ms. Surekha Orozco returned to the office 08/02/2016, accompanied by her sister- in-law, Angela, last in the office 05/20/2016. There was no postprandial pain to suggest intestinal angina. Please note, recent labs show that the patient was mildly hypothyroid, not hyperthyroid, with regard to the weight loss. She has erroneously continued her Omeprazole in addition to the Pepcid 20 mg BID. The Omeprazole was supposed to have been stopped last visit 05/20/2016, because of the low magnesium levels, which were felt to be mostly from diarrhea and from her diuretics. GI labs 05/24/2016: WBC 9.9, H/H 10.9/33.3, normal MCV, PLT 299, ESR 15, CRP 0.7, normal CMP except for mild contraction alkalosis and mild malnutrition, with albumin 2.9, globulin 2.8, other LFTs normal. 07/05/2016: normal fecal elastase 439 obtained for weight loss, going against pancreatic insufficiency. Labs per PMD 07/05/2016: WBC 6.3, H/H 12.4/38.3, PLT 356, ESR 5, normal CMP except albumin 2.6, globulin 3.4 with other LFTs negative, borderline elevated TSH 4.94, normal FT4 1.46, magnesium 1.6. The patient was stable off the Uceris, when last in the office 08/02/2016. She had not yet been vaccinated against Hepatitis A and B. She never went for he Hp Bs Ab. Assuming she was not immune, she was again told to follow up with her PMD to be semi-electively vaccinated against both Hepatitis A and B, in case more heavy duty immunosuppressants, such as 6MP, and/or biologic agents are needed. *The risk of biologic agents, immunosuppressants and/or steroids were previously discussed with the patient and include but are not limited to diabetes, hypertension, peptic ulcer disease, fluid overload, immunosuppression, myopathy, adrenal insufficiency, AVN, osteoporosis (which she already has), cataracts, pancytopenia, alopecia, glaucoma, TB, lymphoma, skin cancer, malignancy, hepatotoxicity, infusion reaction, lupus-like syndrome, myelosuppression, pancreatitis and/or opportunistic infections. She is agreeable to these if needed. When last in the office 08/02/2016, I advised a repeat colonoscopy with a pediatric colonoscope with chromoendoscopy in 09/2016 to reassess what appeared to be lumpy bumpy areas that are probably pseudopolyps. I also advised repeating an EGD at that time, in view of the numerous diffuse gastric erosions with eschars, which were borderline shallow ulcerations. The risks & benefits of EGD/colonoscopy were again discussed with the patient, and she wished to proceed. She was told to increase her Ensure from once a day to 3 times a day. If further weight loss occurs, consideration was for CT enterography, but again the above appeared to be dietary related. The 07/05/2016: normal fecal elastase of 439 goes against pancreatic insufficiency.\\ *The patient's ulcerative colitis has flared off of Uceris. She has previously responded to IV steroids, but these are used to induce remission, not maintain remission. Because of her advanced age, I previously had held off on immunosuppressants such as 6-MP, or biologic agents, however it is clear that she will need at least some of these. The risks and benefits of these have been discussed with the patient, & she wishes to proceed, if needed. Additionally, her malnutrition is due in part to her large hiatal hernia, which needs to be surgically corrected after her ulcerative colitis stabilizes. Her magnesium is currently stable (was off PPI). Her potassium has been repleted. Some of her electrolyte abnormalities are from outpatient Lasix, however her peripheral edema is due to protein losing enteropathy, not from CHF clinically (although there is no recent echocardiogram in the computer). 09/05/2016: XOF-WUTWRIG-NEPATSRN VIEWS- Nonspecific bowel gas pattern, without findings indicative of obstruction or ileus. No radiographic findings suggestive of megacolon in the setting of ulcerative colitis. 09/05/2016: stool C&S, Shiga toxin- negative. 09/06/2016: *C. difficile- negative. 09/06/2016: *Hep Bs Ab < 5 (negative). 09/06/2016: *CRP 2.8, *ESR 3. *As of 09/06/2016, the patient remains hemodynamically stable and afebrile. Her current GI regimen includes Rowasa enema 4g pr Q bedtime, Apriso .375g tab- 4 tabs daily (*the patient is taking her own), IV SoluMedrol 40 mg BID, 6MP 50 mg daily, Imodium as needed & Omeprazole 20 mg daily. She is on sc heparin for DVT prophylaxis. She has not yet been seen by the nutrition department. She is ambulating. She tolerated clears, but still has diarrhea. She denies any abdominal pain. Her nausea is gone. *As of 09/07/2016, the patient remains hemodynamically stable & afebrile. *She was seen by Nutrition on 09/06/2016 & Ensure Carpio was advised TID with meals. Her diarrhea is much improved on IV steroids, with *6MP 50 mg daily started on 09/05/2016, along with Apriso and Rowasa enemas. She only needed Imodium once yesterday. She tolerated full liquids, without any nausea, vomiting, or abdominal pain, and is ambulating. Potassium has been repleted. Magnesium is stable. *As of 09/08/2016, the patient's IV Solu-Medrol 40 mg Q12h was switched to Prednisone 30 mg po BID. Her other GI medications remain the same. She remains hemodynamically stable and afebrile. She has no significant diarrhea, which is essentially gone. There is no rectal bleeding. She denies any nausea, vomiting, or abdominal pain. She feels much improved & is tolerating a low residue diet. *Dr. Dewey wrote a brief note on 03/2017 stating that he may hold off on the semi-elective HH repair until her UC stabilizes. *As of 09/09/2016, the patient has no GI complaints, except for 1 episode of nonbloody diarrhea. There is no abdominal pain, nausea, or vomiting. She is hemodynamically stable, afebrile, ambulating, and tolerating a low-residue diet. SUGGEST: *Continue low residue diet po as tolerated. *Ensure Carpio supplements TID with meals. *Continue Prednisone 30 mg po BID, which will be slowly tapered by myself as an outpatient over the next 6-8 weeks, to use as a bridge until the 6MP becomes therapeutic (*the patient is to call me in 1 week to let me know how she is doing, prior to a slow taper). *The patient is to continue her Apriso 0.375 g tab-4 tabs po daily. *Rowasa enema 4g pr Q bedtime. *Continue 6MP 50 mg po daily (this will take 2-3 months to achieve therapeutic levels), with consideration for outpatient biologic agents. *Imodium as needed, watching for signs of megacolon. Serial abdominal exams. Will defer TPN for now, as the patient's po intake is stable. *Advise semi-elective Hep A & B vaccinations, to be arranged by PMD. Mobilize patient. Follow-up blood sugars on steroids, as per PMD. Hold Lasix. Follow-up electrolytes (K+ repleted). Zofran 4 mg po Q6h as needed. *May carefully continue Omeprazle 20 mg daily, but if magnesium drops, would switch PPI to H2B. *Eventual hiatal hernia repair (*tentatively scheduled by Dr. Dewey for 2016), with the caveat that the patient's ulcerative colitis is under beter control by then. Eventual repeat EGD/colonoscopy with the pediatric colonoscope & chromoendoscopy in 09/2016 (to follow HH repair), to reassess the lumpy bumpy areas that are probably pseudopolyps, as well as the numerus diffuse gastric erosions with eschars/borderline shallow ulcratons. *Consideration for repeat CTE, depending on clinical course (no need at present). *Advise discharge to home today, on 09/09/2016, on the above GI medications, with follow-up GI OV in 2 weeks. The above findings and recommendations were again discussed with the patient, & previously with the medical house staff, Dr. Grady & Dr. Dewey. Problem List: 1. Ulcerative colitis 2. Weight loss 3. Failure to thrive 4. Malnutrition 5. Diarrhea 6. Nausea 7. Hypokalemia 8. Hiatal hernia 9. Diverticulosis of colon 10. Gastritis 11. Fatty liver 12. Cholelithiasis 13. Duodenal diverticulum 14. Right inguinal hernia Subjective Subjective: *As of 09/09/2016, the patient has no GI complaints, except for 1 episode of nonbloody diarrhea. There is no abdominal pain, nausea, or vomiting. She is hemodynamically stable, afebrile, ambulating, and tolerating a low-residue diet. Review of Systems: Full 14 point review of systems otherwise noncontributory, and as above. Review of Systems Constitutional: Reports: weakness (improving) & hx weight loss Denies: chills, diaphoresis, fever, malaise. EENTM: Denies: blurred vision, double vision, visual changes, eye pain, eye drainage, eye tearing, icterus, ear discharge, ear pain, ear redness, hearing changes, nasal congestion, epistaxis, nasal pain, throat pain, throat swelling, mouth pain, tooth pain. Cardiovascular: Reports: peripheral edema (feet B/L)- improving. Denies: chest pain, orthopena, palpitations, syncope. Respiratory: Denies: cough, hemoptysis, orthopnea, short of breath, sputum production, stridor, wheezing. GI: Reports: diarrhea (improved); bloody stool (resolved), nausea (gone). Denies: abdminal pain, bloating, constipation, distention, bowel incontinence, melena, change in stool, vomiting, steatorrhea. Genitourinary: Denies: discharge, dysuria, frequency, hematuria, hesitation, nocturia, pain, urgency. Musculoskeletal: Reports: joint pain (R TKR x 2). Denies: back pain, gout, joint swelling, muscle pain, muscle stiffness, neck pain. Skin: Denies: cysts, change in skin color, change in hair/nails, dryness, erythema, jaundice, lesions, lymphangitis, lumps, moles, rash. Neurological/Psychological: Reports; mild anxiety Denies: ataxia, cognitive dysfunction, confusion, depressed, dementia, emotional problems, headache, numbness, paresthesia, pre-existing deficit, petit mal seizures, tingling, tremors, tonic-clonic seizures, unable to move lower ext, unable to move upper ext. Hematologic/Endocrine: Denies: bruising, bleeding, polyuria, polydipsia. Immunologic/Allergic: Denies: splenectomy, HIV/AIDS, lymphadenopathy. All Other Systems: Reviewed and Negative Objective Vital Signs and I&Os Vital Signs Date Time Temp Pulse Resp B/P Pulse O2 O2 Flow FiO2 Ox Delivery Rate 09/09 0754 97.5 62 18 112/64 97 Room Air 09/08 2333 97.9 67 18 120/56 97 Room Air 09/08 1612 97.4 72 20 120/64 97 Intake & Output 09/09 1600 09/09 0400 09/08 1600 09/08 0400 09/07 1600 09/07 0400 Intake Total 240 850 910 600 800 200 Output Total 400 Balance 240 850 910 600 400 200 Intake, IV 10 Intake, Oral 240 850 900 600 800 200 Number 2 0 1 2 Bowel Movements Output, Urine 400 Physical Exam: Well-developed, slightly malnourished, thin, elderly female, in no apparent distress. Pleasant. Slightly anxious. Sclera anicteric. Conjunctiva pink. Oropharynx clear. No oral thrush. No aphthous ulcers. There is no adenopathy, thyromegaly, or JVD. No peripheral stigmata of inflammatory bowel disease or chronic liver disease on exam. No CVA tenderness. No spiders on the anterior chest wall. Breast & pelvc exams: API. Lungs: clear to A&P. Heart exam: regular rate rhythm, S1 and S2, without any murmur. Abdominal exam: normal bowel sounds, soft belly, nontender, without guarding or rebound. Negative Ricketts sign. Small reducible RIH, otherwise without mass. No organomegaly. No fluid shift. No pulsatile mass. *Clinically, without megacolon. Repeat digital rectal exam: deferred, as just done at 05/05/2016: colonoscopy. Extremities: without cyanosis or clubbing. 1+ pitting edema LE B/L, without palpable cords. B/L LE ALPS. Post right TKR x 2. DJD, without acute arthropathy. No rash, except for scant stasis dermatitis changes LE B/L, L > R (improved). Distal pulses 2+ bilaterally. DTRs 2+ bilaterally. Alert and O x 3. Current Medications: Current Medications Sig/Timoteo Start time Last Medication Dose Route Stop Time Status Admin Acetaminophen 650 MG Q6P PRN 09/04 2314 AC PO Acetaminophen/ 1 TAB Q6P PRN 09/04 231 AC Hydrocodone Bitart PO Heparin Sodium 5,000 UNIT Q8 09/04 231 AC 09/09 (Porcine) SC 0549 Loperamide HCl 2 MG .STK-MED ONE 09/08 175 DC PO 09/08 175 Loperamide HCl 2 MG Q6P PRN 09/05 1515 AC 09/08 PO 1757 Mercaptopurine 50 MG DAILY 09/05 1000 AC 09/08 PO 0924 Mesalamine 4 GM AT BEDTIME 09/05 2200 AC KY Mesalamine 1.5 GM DAILY 09/05 1000 AC 09/08 PO 0924 Omeprazole 20 MG DAILY 09/05 1000 AC 09/08 PO 0924 Oxycodone/ 2 TAB Q6P PRN 09/04 2314 AC Acetaminophen PO Prednisone 30 MG BID 09/08 1000 AC 09/08 PO 2054 Results Pertinent Lab Results: Laboratory Tests 09/07 0610 Chemistry Sodium (137 - 145 mmol/L) 134 L Potassium (3.5 - 5.1 mmol/L) 4.2 Chloride (98 - 107 mmol/L) 105 Carbon Dioxide (22 - 30 mmol/L) 28 Anion Gap (5 - 16) 2 L BUN (7 - 17 mg/dL) 14 Creatinine (0.5 - 1.0 mg/dL) 0.7 Estimated GFR (>60 ml/min) > 60 BUN/Creatinine Ratio (7 - 25 %) 20.0 Magnesium (1.6 - 2.3 mg/dL) 1.9 Hematology CBC w Diff NO MAN DIFF REQ WBC (4.8 - 10.8 /CUMM) 7.1 RBC (4.20 - 5.40 /CUMM) 3.33 L Hgb (12.0 - 16.0 G/DL) 9.3 L Hct (37 - 47 %) 27.5 L MCV (81.0 - 99.0 FL) 82.5 MCH (27.0 - 31.0 PG) 28.0 RDW (11.5 - 14.5 %) 15.1 H Plt Count (130 - 400 /CUMM) 304 MPV (7.4 - 10.4 FL) 8.1 Gran % (42.2 - 75.2 %) 85.3 H Lymphocytes % (20.5 - 51.1 %) 10.0 L Monocytes % (1.7 - 9.3 %) 4.4 Eosinophils % (0 - 5 %) 0 Basophils % (0.0 - 2.0 %) 0.3 Absolute Granulocytes (1.4 - 6.5 /CUMM) 6.0 Absolute Lymphocytes (1.2 - 3.4 /CUMM) 0.7 L Absolute Monocytes (0.10 - 0.60 /CUMM) 0.3 Absolute Eosinophils (0.0 - 0.7 /CUMM) 0 Absolute Basophils (0.0 - 0.2 /CUMM) 0 PUBS MCHC (33.0 - 37.0 G/DL) 34.0 Imaging/Other Studies: *No imaging studies were obtained on admission. 09/04/2016: EKG- NSR @ 80, borderline LAD, ventricular bigeminy, NSST inferiorly. 09/05/2016: OCV-LNUCEGA-TBASPUUN VIEWS- Nonspecific bowel gas pattern, without findings indicative of obstruction or ileus. No radiographic findings suggestive of megacolon in the setting of ulcerative colitis.
--- NOTE | 2016-09-09 09:44 | PN- Att Addend ---
Attending Addendum Attending Brief Note Patient denies abdominal pain and diarrhea improved General Appearance: Alert, No Acute Distress Skin: Grossly normal HEENT: PEERLA Neck: Supple, No JVD Cardiovascular: Regular Rate, Normal S1, Normal S2, No Murmurs Lungs: Clear to Auscultation, Normal Air Movement Abdomen: Normal Bowel Sounds, Soft, No Tenderness Neurological: Normal Speech, Strength at 5/5 X4 Ext, Cranial Nerves 3-12 NL, Reflexes 2+ Extremities: No Clubbing, No Cyanosis, No Edema Vascular: Normal Pulses Assessment 71-year-old with history of ulcerative colitis presenting with bloody and mucus diarrhea without any associated abdominal pain. She is currently on oral prednisone. C. difficile negative. discharge home in am. Plan Ulcerative colitis management as per GI May continue other home medications DVT prophylaxis Current Medications Sig/Timoteo Start time Last Medication Dose Route Stop Time Status Admin Acetaminophen 650 MG Q6P PRN 09/04 2315 AC PO Acetaminophen/ 1 TAB Q6P PRN 09/04 2315 AC Hydrocodone Bitart PO Heparin Sodium 5,000 UNIT Q8 09/04 2310 AC 09/09 (Porcine) SC 0549 Loperamide HCl 2 MG .STK-MED ONE 09/08 1754 DC PO 09/08 1755 Loperamide HCl 2 MG Q6P PRN 09/05 1515 AC 09/08 PO 1757 Mercaptopurine 50 MG DAILY 09/05 1000 AC 09/09 PO 0836 Mesalamine 4 GM AT BEDTIME 09/05 2200 AC NV Mesalamine 1.5 GM DAILY 09/05 1000 AC 09/08 PO 0924 Omeprazole 20 MG DAILY 09/05 1000 AC 09/09 PO 0836 Oxycodone/ 2 TAB Q6P PRN 09/04 2315 AC Acetaminophen PO Prednisone 30 MG BID 09/08 1000 AC 09/09 PO 0836 Vital Signs Date Time Temp Pulse Resp B/P Pulse O2 O2 Flow FiO2 Ox Delivery Rate 09/09 0754 97.5 62 18 112/64 97 Room Air 09/08 2333 97.9 67 18 120/56 97 Room Air 09/08 1612 97.4 72 20 120/64 97
--- NOTE | 2016-09-28 14:33 | Discharge Summary ---
Visit Information Visit Dates Admission Date: 09/04/16 Discharge Date: 09/09/16 Hospital Course Course Attending Physician: BENNETT PINEDA MD Primary Care Physician: TRAVON BURCIAGA MD Consulting Request: Consulting Specialty: Gastroenterology Reason for Consult: Dr. Amezquita Hospital Course: 71-year-old lady presneted complaining of persistent filling of being nauseous, with poor appetite and significant weight loss since her diagnosis of ulcerative colitis in April 2016. Patient was started on treatment with steroids and mesalamine which resulted in improvement of her symptoms, however since she stopped steroids she has been experiencing similar symptoms including nausea, poor appetite and inability to gain weight. She has lost 40 pounds since March. She also has been persistently passing pus, red mucous with foul smell, and incontinence especially during the night causing her to wear diapers. 1. ulcerative colitis Patient was admitted for a flareup of ulcerative colitis requiring IV sheron Medrol. She was followed up with GI who recommended steroids and once her symptoms had improved she was discharged home on prednisone taper. 2. large hiatal hernia patient was followed by Dr. Barber and he recommended postponing the surgery for hiatal hernia since patient was having an active flare up and was on steroids. she will follow-up with Dr. Barber as outpatient to reschedule her surgery. Allergies: Coded Allergies: NO KNOWN ALLERGIES (03/21/14) Disposition Summary Disposition Principal Diagnosis: ulcerative colitis Additional Diagnosis: hiatal hernia Discharge Disposition: home or self care Discharge Instructions General Discharge Information Code Status: Full Code Patient's Diet: high-fiber diet Patient's Activity: no restrictions Follow-Up Instructions/Appts: follow-up with Dr. Sin and Dr. Barber as outpatient Medications at Discharge Discharge Medications: Stop taking the following medications: Furosemide (Furosemide) 20 MG TABLET ORAL DAILY as needed for DIURETIC Qty = 90 Furosemide (Lasix) 40 MG TABLET ORAL DAILY Qty = 30 Continue taking these medications: Famotidine (Famotidine) 20 MG TABLET 1 Tablet ORAL TWICE DAILY Qty = 60 Comments: Last Taken: Time: NOT GIVEN ON THIS ADMISSION Mesalamine (Mesalamine) 4 GRAM/60 ML ENEMA 1 Enema RECTALLY DAILY Qty = 1680 Comments: Last Taken: Time: NOT GIVEN ON THIS ADMISSION Budesonide (Uceris) 9 MG TABDR...ER 1 Tablet ORAL Every other day Comments: PER PT Omeprazole (Omeprazole) 20 MG CAPSULE.DR 1 Capsule ORAL DAILY Qty = 30 Comments: Last Taken:09/09/16 Time:10AM Potassium Chloride (Potassium Chloride) 20 MEQ TAB.ER.PRT 1 Tablet ORAL DAILY Qty = 30 Comments: Last Taken: Time: NOT GIVEN Ondansetron (Zofran Odt) 4 MG TAB.RAPDIS 1 Tablet SUBLINGUAL THREE TIMES DAILY as needed for nausea Qty = 20 Comments: Last Taken: Time: NOT GIVEN Multivitamin (Multi-Day Vitamins) 1 EACH TABLET 1 Tablet ORAL DAILY Comments: Last Taken: Time: NOT GIVEN ON THIS ADMISSION Vitamin E Mixed (Vitamin E) 400 UNIT TABLET 1 Tablet ORAL TWICE DAILY Comments: Last Taken: Time: NOT GIVEN Mesalamine (Apriso) 0.375 GRAM CAP.ER.24H 2 Capsule ORAL TWICE DAILY Qty = 120 Comments: PER PT [place]-3 Fatty Acids ([place]-3) (Unknown Strength) CAPSULE Unknown Dose ORAL DAILY Comments: Last Taken: Time: NOT GIVEN Start taking the following new medications: Prednisone (Prednisone) 10 MG TABLET 0 ORAL TWICE DAILY Qty = 87 No Refills Instructions: ON Take 09/09 30 MG AT NIGHT 09/10-09/15 30 MG BID 09/16-09/22 20 MG BID 09/23-09/28 10 MG BID 09/29-10/05 10 MG DAILY THEN STOP Comments: Last Taken:09/09/16 Time:10AM Mercaptopurine (Mercaptopurine) 50 MG TABLET 50 Milligram ORAL DAILY Days = 60 No Refills Comments: Last Taken:09/09/16 Time:10AM Copies To: SANDRA ALANIS,STEPHANIE BARBER MD,JAY Piedra Attending MD Review Statement Documenting Attending: BENNETT PINEDA MD
== END 2016-09-09 11:05 | DRG 386 ==
LOC: ENRESERVTM → ENRESERVDT → ERH 17:18 → 2NB 20:33 → ENPENDDIS 20:33 → 2NB 20:33 → ERHI 20:33 → 2NB 09-05 01:04
PROVIDERS: Emergency Medicine; Internal Medicine; ADMIT Internal Medicine
DX: K51.90 Ulcerative colitis, unspecified, without complications (principal); Z68.1 Body mass index [BMI] 19.9 or less, adult; E44.0 Moderate protein-calorie malnutrition; E87.6 Hypokalemia; K44.9 Diaphragmatic hernia without obstruction or gangrene; R62.7 Adult failure to thrive; K57.30 Diverticulosis of large intestine without perforation or abscess without bleeding; K21.9 Gastro-esophageal reflux disease without esophagitis; Z87.891 Personal history of nicotine dependence
CPT/HCPCS: 2NSBP; ERO; 36415; 74020; 81001; 82436; 86706; 87045; 93005; 93010; 96360; J1644; J2920; J2930; J7512; S0108

== ENCOUNTER 2016-12-03 15:10 | Inpatient (IN) | payer OTHER ==
[~2016-12-03] VITALS: Ht 165.1 cm; Wt 49.0 kg
[~2016-12-03 15:10] MED LIST changes: +APRISO0.375 G1 PO; +MERCAPTOPURINE50 M1 PO; +MULTI-DAY VITA1 EACH PO; +OMEGA-31000 M1 PO; +VITAMIN E400 UNI2 PO
[2016-12-03 16:55] LABS: ABSOLUTE BASOPHIL COUNT 0 /CUMM (0.0-0.2); ABSOLUTE EOSINOPHIL COUNT 0 /CUMM (0.0-0.7); ABSOLUTE GRANULOCYTE CT 18.4 /CUMM (1.4-6.5); ABSOLUTE LYMPH COUNT 0.4 /CUMM (1.2-3.4); BASOPHIL % 0.2 % (0.0-2.0); EOSINOPHIL % 0 % (0-5); GRANULOCYTE % 92.6 % (42.2-75.2); HEMATOCRIT 34.8 % (37-47); MEAN CORPUSCULAR HGB 30.5 PG (27.0-31.0); MEAN CORPUSCULAR HGB CONC 32.8 G/DL (33.0-37.0); MEAN CORPUSCULAR VOLUME 92.8 FL (81.0-99.0); MEAN PLATELET VOLUME 8.7 FL (7.4-10.4); PLATELET COUNT 361 /CUMM (130-400); RBC DISTRIBUTION WIDTH 19.4 % (11.5-14.5); RED BLOOD CELL CT 3.76 /CUMM (4.20-5.40); WHITE BLOOD CELL COUNT 19.9 /CUMM (4.8-10.8)
--- NOTE | 2016-12-03 17:25 | ED GI/GU/ABDOMINAL COMPLAINT ---
History of Present Illness General Chief Complaint: Abdominal Pain/Flank Pain Stated Complaint: ABD PAIN, GROIN PAIN/SWELLING Source: patient Exam Limitations: no limitations Vital Signs & Intake/Output Vital Signs & Intake/Output Vital Signs Date Time Temp Pulse Resp B/P B/P Pulse O2 O2 Flow FiO2 Mean Ox Delivery Rate 12/04 0521 97.7 82 16 100/60 93 Room Air 12/04 0114 96 Nasal 1.0L Cannula 12/04 0027 98.0 68 16 104/50 95 Room Air 12/03 2253 97.8 64 20 98/60 95 Nasal 1.0L Cannula 12/03 1912 98.9 67 18 124/59 96 Room Air 12/03 1803 Room Air 12/03 1623 96.9 98 18 116/68 100 Room Air ED Intake and Output 12/04 0000 12/03 1200 Intake Total 1000 Output Total Balance 1000 Intake, IV 1000 Patient 110 lb Weight Weight Reported by Patient Measurement Method Allergies Coded Allergies: NO KNOWN ALLERGIES (03/21/14) Reconcile Medications Alendronate Sodium 35 MG TABLET 1 TAB PO QW BONES (Reported) Cholecalciferol (Vitamin D3) (Vitamin D) 1,000 UNIT TABLET 1 TAB PO DAILY SUPPLEMENT (Reported) Cyanocobalamin (Vitamin B-12) (Vitamin B-12) 5,000 MCG TAB.SUBL 1 TAB SL DAILY SUPPLEMENT (Reported) Famotidine 20 MG TABLET 1 TAB PO BID GI (Reported) Mercaptopurine 50 MG TABLET 1.5 TAB PO DAILY ULCERATIVE COLITIS (Reported) Multivitamin (Multi-Day Vitamins) 1 EACH TABLET 1 TAB PO DAILY SUPPLEMENT ( Reported) [place]-3 Fatty Acids ([place]-3) (Unknown Strength) CAPSULE (Unknown Dose) PO DAILY SUPPLEMENT (Reported) Potassium Chloride 20 MEQ TAB.ER.PRT 1 TAB PO DAILY SUPPLEMENT (Reported) Vitamin E Mixed (Vitamin E) 400 UNIT TABLET 1 TAB PO BID SUPPLEMENT (Reported ) Triage Note: PT TO ED FOR IMPROVING CRAMPY ABD PAIN AFTER EATING MCDONALDS ON MONDAY, PT REPORTING HER PAIN HAS IMPROVED SINCE MONDAY. PT ALSO C/O R GROIN PAIN AFTER LIFTING WEIGHTS MONDAY, PT NOW C/O A "BUMP IN R GROIN AREA". Triage Nurses Notes Reviewed? yes ? n Is pt currently ? No HPI: Patient is a 71-year-old female presents complaining of abdominal pain and mass to her right lower abdomen. Abdominal pain started on Monday. Pain is been a cramping pain. Associated nausea. Patient has not had anything to eat for the past 2 days due to decreased appetite. Patient has been applying a heating pad to her right lower abdomen with no improvement. After applying heating pad patient has noticed redness to the area. Pain is currently moderate. Patient denies fevers. (PARKER BO) Past History Travel History Traveled to [place] past 21 day No Medical History Any Pertinent Medical History? 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 Musculoskeletal: degen joint disease, osteoarthritis, osteoporosis, R TKR x 2 Psychiatric: NONE Endocrine: osteoporosis Blood Disorders: anemia (mild) Cancer(s): NONE CLIENT ASSOCIATE/Reproductive: NONE History of MRSA: No History of VRE: No History of CDIFF: No Influenza Vaccine: 04/30/16 Surgical History Surgical History: hernia repair-inguinal (left), knee replacement (right TKR with redo), LEFT NEPHRECTOMY (donated to late in 1999) LIH repair 2005: R TKR 02/2014: redo R TKR Psychosocial History Who do you live with Daughter Services at Home None What is your primary language Pashto Tobacco Use: Never used ETOH Use: denies use Illicit Drug Use: denies illicit drug use Family History Family History, If Any: FATHER, , Age 77; Cause: Unknown cause of morbidity or mortality. FH: cancer MOTHER, , Age 96; Cause: Dementia. Hx Contributory? No (PARKER BO) Review of Systems Review of Systems Constitutional: Denies: chills, fever. EENTM: Reports: no symptoms. Respiratory: Denies: cough, short of breath. Cardiovascular: Denies: chest pain. GI: Reports: see HPI, abdominal pain, constipation, nausea. Genitourinary: Reports: no symptoms. Musculoskeletal: Reports: no symptoms. Skin: Reports: no symptoms. Neurological/Psychological: Reports: no symptoms. Hematologic/Endocrine: Reports: no symptoms. Immunologic/Allergic: Reports: no symptoms. (PARKER BO) Physical Exam Physical Exam General Appearance: alert, awake Head: atraumatic, normal appearance Eyes: Bilateral: normal appearance, PERRL, EOMI. Ears, Nose, Throat, Mouth: hearing grossly normal, moist mucous membrane Neck: normal inspection, supple, full range of motion Respiratory: normal breath sounds, chest non-tender, no respiratory distress, lungs clear Cardiovascular: regular rate/rhythm Gastrointestinal: normal bowel sounds, soft, palpable hernia right inguinal area. Area is tender mild firmness to the area. Back: normal inspection, normal range of motion Extremities: normal range of motion Neurologic/Psych: no motor/sensory deficits, awake, alert, oriented x 3, normal mood/affect Skin: warm/dry Core Measures ACS in differential dx? No Severe Sepsis Present: No Septic Shock Present: No (BETTY CAZARES,PARKER) Progress Differential Diagnosis: incarcerated hernia, small bowel obstruction, colitis, diverticulitis, cholecystitis, ischemic bowel, mesenteric ischemia Plan of Care: Orders Procedure Date/time Status Nothing by Mouth 12/04 B Active MAGNESIUM 12/04 599 Active HEPATIC FUNCTION PANEL 12/04 599 Active GLUCOSE 12/04 06 Active CBC WITHOUT DIFFERENTIAL 12/04 599 Active BASIC ELECTROLYTES PLUS BUN&CR 12/04 06 Active Wound Care/Dressing 12/04 0129 Active Vital Signs 12/04 004 Complete Teach/Educate 12/04 004 Active Pain Treatment and Response 12/04 004 Active Nutritional Intake, Monitor 12/04 004 Active Isolation 12/04 0042 Active Intake & Output 12/04 0042 Complete Patient Care Conference 12/04 0042 Active Activity/Ambulation 12/04 0042 Active [place], Insertion/Removal/Asses 12/04 UNK Active Patient Data 12/03 2153 Active Add-on Test (ER Only) 12/03 1914 Active TYPE & SCREEN (NOT X-MATCH) 12/03 1819 Complete LACTIC ACID 12/03 1803 Complete Add-on Test (ER Only) 12/03 1734 Active PROTHROMBIN TIME 12/03 1650 Complete LIPASE 12/03 1650 Complete COMPREHENSIVE METABOLIC PANEL 12/03 1624 Complete CBC WITHOUT DIFFERENTIAL 12/03 1624 Complete EKG 12/03 1511 Active Admit to inpatient 12/03 UNK Active VTE Mechanical Prophylaxis 12/03 UNK Active Vital Signs 12/03 UNK Active NGT 12/03 UNK Active Intake & Output 12/03 UNK Active Current Medications Sig/Timoteo Start time Last Medication Dose Stop Time Status Admin Prednisone 10 MG Q48@0800 12/05 08 AC Mercaptopurine 75 MG DAILY 12/04 1000 AC (Purinethol 50MG Tab) Hydrocortisone 100 MG 12/04 AC Sodium Succinate 12/04 800 (Solucortef) Heparin Sodium 5,000 UNIT Q8 12/04 599 AC 12/04 (Porcine) 0536 Acetaminophen 1,000 MG Q6P PRN 12/03 2199 AC (Ofirmev) N/A 1 UNIT (No Carrier) Ceftriaxone Sodium 1,000 MG 12/03 AC 12/04 (Rocephin) 0002 Famotidine 20 MG BID 12/03 2199 AC 12/04 (Pepcid) 0002 Metronidazole 500 MG Q8 12/03 2199 AC 12/04 (Flagyl) 0536 N/A 1 UNIT (No Carrier) Morphine Sulfate 2 MG Q4-6 PRN PRN 12/03 2199 AC 12/04 (Morphine) 0539 Morphine Sulfate 4 MG Q4-6 PRN PRN 12/03 2199 AC (Morphine) Ondansetron HCl 4 MG Q6P PRN 12/03 2199 AC (Zofran) Potassium Chloride 20 MEQ Q10H 12/03 2199 AC 12/03 (KCl 20MEQ in D5W NS 2247 1000ML) Dextrose/Sodium 1,000 ML Chloride (D5-Normal Saline) Laboratory Tests 12/03/16 2103: Lactic Acid Cancelled 12/03/16 1819: Lactic Acid 0.9 12/03/16 1650: Anion Gap 14, Estimated GFR > 60, BUN/Creatinine Ratio 46.7 H, Glucose 117 H, Calcium 9.0, Total Bilirubin 1.4 H, AST 18, ALT 31, Alkaline Phosphatase 78, Total Protein 6.8, Albumin 3.7, Globulin 3.1, Albumin/Globulin Ratio 1.2, Lipase 38, PT 13.5 H, INR 1.29 H, CBC w Diff MAN DIFF ORDERED, RBC 3.76 L, MCV 92.8, MCH 30.5, RDW 19.4 H, MPV 8.7, Gran % 92.6 H, Lymphocytes % 2.0 L, Monocytes % 5.2, Eosinophils % 0, Basophils % 0.2, Absolute Granulocytes 18.4 H, Absolute Lymphocytes 0.4 L, Absolute Monocytes 1.0 H, Absolute Eosinophils 0, Absolute Basophils 0, Platelet Estimate ADEQUATE, Poikilocytosis 1+, Elliptocytes 1+, Schistocytes RARE, PUBS MCHC 32.8 L Attempted reduction of hernia on initial exam. Patient placed in Trendelenburg and ice pack placed to the area. Discussed with Dr. Bennett 1819: Again attempted reduction without success. 1828: Discussed with Dr. Neves: will evaluate (BETTY CAZARES,PARKER) Diagnostic Imaging: Viewed by Me: CT Scan. Discussed w/RAD: CT Scan. Radiology Impression: PATIENT: ANGELITA PALACIOS PRESENT AGE: 71 PATIENT ACCOUNT NO: [id number] : 43 LOCATION: [facility] ORDERING PHYSICIAN: PARKER CAZARES SERVICE DATE: 12/03/16 EXAM TYPE: CAT - CT ABD & PELVIS W IV CONTRAST EXAMINATION: CT ABDOMEN AND PELVIS WITH CONTRAST CLINICAL INFORMATION: Right inguinal mass. Leukocytosis and elevated bilirubin levels. The patient has a history of ulcerative colitis. Evaluate for possible right sided incarcerated hernia. Evaluate for intra-abdominal infection. COMPARISON: CT abdomen and pelvis with contrast 04/27/2016. TECHNIQUE: Multidetector volumetric imaging was performed of the abdomen and pelvis before and after the IV administration of 94 mL of Optiray 320 intravenous contrast. Sagittal and coronal reformatted images were obtained on the technologist's workstation. DLP: 249.91 mGy-cm FINDINGS: LUNG BASES: Evaluation of the included lung bases is notable for a large hiatal hernia containing almost the entirety of the stomach. No pleural or pericardial effusions are identified. LIVER, GALLBLADDER, AND BILIARY TREE: The liver is normal in size, shape, and attenuation. Of note, there is a geographic region of focal hypoattenuation within the medial segment of the left hepatic lobe, adjacent to the falciform ligament. This finding is nonspecific but is characteristic in location for focal fatty infiltration of the liver. No focal hepatic lesion or biliary ductal dilatation is present. The gallbladder is distended. Several calcified stones are present within the gallbladder lumen. No gallbladder wall thickening or pericholecystic inflammatory changes are identified. PANCREAS: Unremarkable. SPLEEN: Unremarkable. ADRENAL GLANDS: Unremarkable. KIDNEYS AND URETERS: The left kidney is absent. The right kidney is normal in size and enhances homogeneously without focal parenchymal lesions. A 3 mm nonobstructing stone is present within the lower pole of the right kidney. There are no right-sided ureteral stones and there is no hydronephrosis of the right kidney. BLADDER: Moderately distended but otherwise unremarkable. GASTROINTESTINAL TRACT: Evaluation of the gastrointestinal system demonstrates multiple dilated air and fluid-filled loops of small bowel throughout the abdomen and pelvis indicative of a small bowel obstruction. Distended loops of small bowel are visualized measuring up to 3 cm in transverse diameter within the right hemiabdomen. The transition point is visualized within the right inguinal canal, in the region of the distal ileum. Loops of small bowel distal to this site of obstruction are decompressed. The colon is decompressed. There is scattered colonic diverticulosis, notably involving the sigmoid colon. Of note, there is circumferential thickening surrounding the mid descending colon as well as the sigmoid colon, without significant pericolonic inflammatory changes. There are no extraluminal foci of air to suggest perforation. No pericolonic fluid collections. Normal-appearing appendix is present within the right lower quadrant of the abdomen. Incidental note is made of several small diverticula along the terminal ileum. As noted above, there is a large hiatal hernia containing almost the entirety of the stomach. Also noted is a large diverticulum arising from the proximal duodenum measuring approximately 3.4 cm in diameter. ABDOMINAL WALL: An incarcerated right inguinal hernia containing a segment of the distal ileum. Evidence of prior left inguinal hernia repair. LYMPH NODES: Mildly prominent lymph nodes within the right inguinal canal. No significant mesenteric, retroperitoneal or deep pelvic adenopathy. VASCULAR: Scattered atherosclerosis of the abdominal aorta and its branching vessels. The abdominal aorta is patent and normal in course and caliber, without aneurysmal dilatation. The main portal vein as well as the right and left portal veins are patent. There is a questionable filling defect within the intrahepatic segment of the IVC (series 2, image 19). Also noted is focal narrowing of the midportion of the main portal vein. This may be secondary to mass effect upon the main portal vein by the large diverticulum arising from the proximal duodenum. The splenic vein and SMV are patent and opacified by intravenous contrast. There is normal anatomic orientation of the SMV relative to the SMA. PELVIC VISCERA: Several coarse calcifications are present within the right adnexa and may represent pelvic phleboliths or calcifications within or adjacent to the right ovary. OSSEOUS STRUCTURES: No acute osseous abnormality. Mild multilevel facet arthrosis of the imaged lumbar spine. No visible destructive osseous lesions. No acute osseous abnormality. IMPRESSION: 1. Small bowel obstruction secondary to an incarcerated right inguinal hernia. The segment of small bowel contained within the right inguinal hernia sac appears to correspond to the distal ileum. Segments of the distal ileum distal to this site of obstruction or decompressed. No extraluminal foci of air to suggest perforation. 2. Scattered colonic diverticulosis. Several small diverticula also visualized along the distal ileum. There is circumferential thickening involving the descending and sigmoid colon without significant pericolonic inflammatory changes. This finding is nonspecific and may be secondary to colonic underdistention although a focal colitis or acute diverticulitis cannot be excluded given diverticulosis of the colon. Correlate with lab values. Also consider correlation with colonoscopy following resolution of acute symptoms to exclude underlying malignancy within this region. 3. Questionable filling defect/thrombus within the intrahepatic segment of the IVC. 4. A large hiatal hernia containing almost the entirety of the stomach. 5. Cholelithiasis, without secondary signs of acute cholecystitis. 6. Focal narrowing of the mid segment of the portal vein. This may be secondary to mass effect upon the portal vein by a large diverticulum arising from the proximal duodenum. This critical result was discussed with DEBORA Powell at 7:00 PM on 12/03/2016 and it was ascertained that the content and urgency of the report was understood at the time of direct communication. DICTATED BY: JOSELYN CHAMBERLAIN MD DATE/TIME DICTATED:12/03/161841 BAKERY DELIVERER:ROSA DATE/TIME TRANSCRIBED:12/03/161841 CONFIDENTIAL, DO NOT COPY WITHOUT APPROPRIATE AUTHORIZATION. <Electronically signed in Other Vendor System> SIGNED BY: JOSELYN CHAMBERLAIN MD 12/03/161907 Initial ED EKG: sinus rhythm, multiple premature complexes, nonspecific t wave abnormalities (PARKER BO) Departure Departure Time of Disposition: 1921 Disposition: STILL A PATIENT Condition: Stable Clinical Impression Primary Impression: Incarcerated hernia Secondary Impressions: Hiatal hernia, IVC thrombosis, Small bowel obstruction Referrals: BENNETT PINEDA MD (PCP/Family) Departure Forms: Customer Survey General Discharge Information OR/GI Note Spoke With: MAYELIN NEVES DO ED Treatment Decision: TOM PALACIOSEEN requires urgent operative management or an emergent procedure that cannot be performed in the Emergency Room setting. Transport To: [facility] (PARKER BO) PA/SENIOR COST ESTIMATOR Co-Sign Statement Statement: ED Attending supervision documentation- x I saw and evaluated the patient. I have also reviewed all the pertinent lab results and diagnostic results. I agree with the findings and the plan of care as documented in the PA's/SENIOR COST ESTIMATOR's documentation. [] I have reviewed the ED Record and agree with the PA's/SENIOR COST ESTIMATOR's documentation. [] Additions or exceptions (if any) to the PAs/SENIOR COST ESTIMATOR's note and plan are summarized below: [] (GHASSAN ALANIS,PERLA) Critical Care Note Critical Care Note Critical Care Time: 30-74 min (PARKER BO)
[2016-12-03] MEDS ORDERED: ALENDRONATE SOD35 M2 PO (17:52)
[2016-12-03] MEDS ORDERED: MERCAPTOPURINE50 M1 PO (17:52)
[2016-12-03] MEDS ORDERED: VITAMIN D1000 UNIT PO (17:53)
[2016-12-03] MEDS ORDERED: VITAMIN B-125000 MCG SL (17:53)
[2016-12-03 18:06] LABS: PT 13.5 SEC (9.4-12.5)
--- NOTE | 2016-12-03 19:08 | CT SCAN REPORT ---
EXAMINATION: CT ABDOMEN AND PELVIS WITH CONTRAST CLINICAL INFORMATION: Right inguinal mass. Leukocytosis and elevated bilirubin levels. The patient has a history of ulcerative colitis. Evaluate for possible right sided incarcerated hernia. Evaluate for intra-abdominal infection. COMPARISON: CT abdomen and pelvis with contrast 04/27/2016. TECHNIQUE: Multidetector volumetric imaging was performed of the abdomen and pelvis before and after the IV administration of 94 mL of Optiray 320 intravenous contrast. Sagittal and coronal reformatted images were obtained on the technologist's workstation. DLP: 249.91 mGy-cm FINDINGS: LUNG BASES: Evaluation of the included lung bases is notable for a large hiatal hernia containing almost the entirety of the stomach. No pleural or pericardial effusions are identified. LIVER, GALLBLADDER, AND BILIARY TREE: The liver is normal in size, shape, and attenuation. Of note, there is a geographic region of focal hypoattenuation within the medial segment of the left hepatic lobe, adjacent to the falciform ligament. This finding is nonspecific but is characteristic in location for focal fatty infiltration of the liver. No focal hepatic lesion or biliary ductal dilatation is present. The gallbladder is distended. Several calcified stones are present within the gallbladder lumen. No gallbladder wall thickening or pericholecystic inflammatory changes are identified. PANCREAS: Unremarkable. SPLEEN: Unremarkable. ADRENAL GLANDS: Unremarkable. KIDNEYS AND URETERS: The left kidney is absent. The right kidney is normal in size and enhances homogeneously without focal parenchymal lesions. A 3 mm nonobstructing stone is present within the lower pole of the right kidney. There are no right-sided ureteral stones and there is no hydronephrosis of the right kidney. BLADDER: Moderately distended but otherwise unremarkable. GASTROINTESTINAL TRACT: Evaluation of the gastrointestinal system demonstrates multiple dilated air and fluid-filled loops of small bowel throughout the abdomen and pelvis indicative of a small bowel obstruction. Distended loops of small bowel are visualized measuring up to 3 cm in transverse diameter within the right hemiabdomen. The transition point is visualized within the right inguinal canal, in the region of the distal ileum. Loops of small bowel distal to this site of obstruction are decompressed. The colon is decompressed. There is scattered colonic diverticulosis, notably involving the sigmoid colon. Of note, there is circumferential thickening surrounding the mid descending colon as well as the sigmoid colon, without significant pericolonic inflammatory changes. There are no extraluminal foci of air to suggest perforation. No pericolonic fluid collections. Normal-appearing appendix is present within the right lower quadrant of the abdomen. Incidental note is made of several small diverticula along the terminal ileum. As noted above, there is a large hiatal hernia containing almost the entirety of the stomach. Also noted is a large diverticulum arising from the proximal duodenum measuring approximately 3.4 cm in diameter. ABDOMINAL WALL: An incarcerated right inguinal hernia containing a segment of the distal ileum. Evidence of prior left inguinal hernia repair. LYMPH NODES: Mildly prominent lymph nodes within the right inguinal canal. No significant mesenteric, retroperitoneal or deep pelvic adenopathy. VASCULAR: Scattered atherosclerosis of the abdominal aorta and its branching vessels. The abdominal aorta is patent and normal in course and caliber, without aneurysmal dilatation. The main portal vein as well as the right and left portal veins are patent. There is a questionable filling defect within the intrahepatic segment of the IVC (series 2, image 19). Also noted is focal narrowing of the midportion of the main portal vein. This may be secondary to mass effect upon the main portal vein by the large diverticulum arising from the proximal duodenum. The splenic vein and SMV are patent and opacified by intravenous contrast. There is normal anatomic orientation of the SMV relative to the SMA. PELVIC VISCERA: Several coarse calcifications are present within the right adnexa and may represent pelvic phleboliths or calcifications within or adjacent to the right ovary. OSSEOUS STRUCTURES: No acute osseous abnormality. Mild multilevel facet arthrosis of the imaged lumbar spine. No visible destructive osseous lesions. No acute osseous abnormality. IMPRESSION: 1. Small bowel obstruction secondary to an incarcerated right inguinal hernia. The segment of small bowel contained within the right inguinal hernia sac appears to correspond to the distal ileum. Segments of the distal ileum distal to this site of obstruction or decompressed. No extraluminal foci of air to suggest perforation. 2. Scattered colonic diverticulosis. Several small diverticula also visualized along the distal ileum. There is circumferential thickening involving the descending and sigmoid colon without significant pericolonic inflammatory changes. This finding is nonspecific and may be secondary to colonic underdistention although a focal colitis or acute diverticulitis cannot be excluded given diverticulosis of the colon. Correlate with lab values. Also consider correlation with colonoscopy following resolution of acute symptoms to exclude underlying malignancy within this region. 3. Questionable filling defect/thrombus within the intrahepatic segment of the IVC. 4. A large hiatal hernia containing almost the entirety of the stomach. 5. Cholelithiasis, without secondary signs of acute cholecystitis. 6. Focal narrowing of the mid segment of the portal vein. This may be secondary to mass effect upon the portal vein by a large diverticulum arising from the proximal duodenum. This critical result was discussed with Wilbur Godfrey PA-C at 7:00 PM on 12/03/2016 and it was ascertained that the content and urgency of the report was understood at the time of direct communication.
--- NOTE | 2016-12-03 19:38 | History & Physical Pre-Op ---
HONORIO SALCEDO 12/03/161936: General Information and HPI MD Statement: I have seen and personally examined ANGELITA OROZCO and documented this H&P. The patient is a 71 year old F who presented with a patient stated chief complaint of [right groin bulge, abdominal pain]. Source of Information: patient, family, old records Exam Limitations: no limitations History of Present Illness: This 71 year old female with hx known ulcerative colitis, GERD, large hiatal hernia, s/p left kidney donation, presents complaining of abdominal pain and bulge to her right lower abdomen. She believes her abdominal pain started on monday, after she had been doing some heavy lifting and cleaning. She reports cramping pain, associated with nausea, and decreased appetite for the last several days. She reports some dry heaving in the last few days, without vomiting. She has been applying a heating pad to her right lower abdomen with no improvement. She denies fevers, chills, sweats. She believes she may have been passing some gas today, and has had a bm in the last few days. Allergies/Medications Allergies: Coded Allergies: NO KNOWN ALLERGIES (03/21/14) Home Med list Alendronate Sodium 35 MG TABLET 1 TAB PO QW BONES (Reported) Cholecalciferol (Vitamin D3) (Vitamin D) 1,000 UNIT TABLET 1 TAB PO DAILY SUPPLEMENT (Reported) Cyanocobalamin (Vitamin B-12) (Vitamin B-12) 5,000 MCG TAB.SUBL 1 TAB SL DAILY SUPPLEMENT (Reported) Famotidine 20 MG TABLET 1 TAB PO BID GI (Reported) Mercaptopurine 50 MG TABLET 1.5 TAB PO DAILY ULCERATIVE COLITIS (Reported) Multivitamin (Multi-Day Vitamins) 1 EACH TABLET 1 TAB PO DAILY SUPPLEMENT ( Reported) Samaria-3 Fatty Acids (Samaria-3) (Unknown Strength) CAPSULE (Unknown Dose) PO DAILY SUPPLEMENT (Reported) Potassium Chloride 20 MEQ TAB.ER.PRT 1 TAB PO DAILY SUPPLEMENT (Reported) Vitamin E Mixed (Vitamin E) 400 UNIT TABLET 1 TAB PO BID SUPPLEMENT (Reported ) Past History Medical History Neurological: NONE EENT: cataracts Cardiovascular: NONE Respiratory: NONE Gastrointestinal: hiatal hernia, ulcerative colitis, DIVERTICULOSIS RIH Hepatic: cholelithiasis, fatty liver Renal: 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 Musculoskeletal: degen joint disease, osteoarthritis, osteoporosis, R TKR x 2 Psychiatric: NONE Endocrine: osteoporosis Blood Disorders: anemia (mild) Cancer(s): NONE NAIL SETTER/Reproductive: 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 FH: cancer MOTHER, , Age 96; Cause: Dementia. Psychosocial History Who Do You Live With? spouse (Smiley Orozco (dtr)), child Services at Home None Primary Language: [place] ETOH Use: denies use Illicit Drug Use: denies illicit drug use Living Will? yes Power of Lodging Facilities Manager/HCP? yes Name of POA/HCP: Pt's 2 dtrs (Smiley Orozco & Juliana Gracia) Functional Ability ADLs Independent: dressing, eating, toileting, bathing. Ambulation: independent IADLs Independent: shopping, housework, finances, food prep, telephone, transportation , medication admin. Review of Systems Review of Systems: admits: abdominal pain, right groin bulge, dry heaving denies: fevers / chills / sweats, shortness of breath, chest pains Exam & Diagnostic Data Last 24 Hrs of Vital Signs/I&O Vital Signs Date Time Temp Pulse Resp B/P B/P Pulse O2 O2 Flow FiO2 Mean Ox Delivery Rate 12/03 1912 98.9 67 18 124/59 96 Room Air 12/03 1803 Room Air 12/03 1623 96.9 98 18 116/68 100 Room Air Physical Exam: General - alert & oriented x 3. comfortable. no acute distress. Skin - warm, dry, and smooth. Lungs - clear bilaterally. no w/r/r. Cardiac - s1s2. reg. Abdomen - softly distended. right groin tenderness, with bulge appreciated on exam. right groin area somewhat erythematous. no acute peritoneal findings. Extremities - warm bilaterally. no c/c/e. calves soft and nontender b/l. Neuro - nonfocal. speech smooth and coordinated. no gross motor / sensory deficits. Last 24 Hrs of Labs/Woody: Laboratory Tests 12/03/16 1819: Lactic Acid 0.9 12/03/16 1650: Anion Gap 14, Estimated GFR > 60, BUN/Creatinine Ratio 46.7 H, Glucose 117 H, Calcium 9.0, Total Bilirubin 1.4 H, AST 18, ALT 31, Alkaline Phosphatase 78, Total Protein 6.8, Albumin 3.7, Globulin 3.1, Albumin/Globulin Ratio 1.2, Lipase 38, PT 13.5 H, INR 1.29 H, CBC w Diff MAN DIFF ORDERED, RBC 3.76 L, MCV 92.8, MCH 30.5, RDW 19.4 H, MPV 8.7, Gran % 92.6 H, Lymphocytes % 2.0 L, Monocytes % 5.2, Eosinophils % 0, Basophils % 0.2, Absolute Granulocytes 18.4 H, Absolute Lymphocytes 0.4 L, Absolute Monocytes 1.0 H, Absolute Eosinophils 0, Absolute Basophils 0, Platelet Estimate ADEQUATE, Poikilocytosis 1+, Elliptocytes 1+, Schistocytes RARE, PUBS MCHC 32.8 L Diagnostic Data Other Results EXAMINATION: CT ABDOMEN AND PELVIS WITH CONTRAST CLINICAL INFORMATION: Right inguinal mass. Leukocytosis and elevated bilirubin levels. The patient has a history of ulcerative colitis. Evaluate for possible right sided incarcerated hernia. Evaluate for intra-abdominal infection. COMPARISON: CT abdomen and pelvis with contrast 04/27/2016. TECHNIQUE: Multidetector volumetric imaging was performed of the abdomen and pelvis before and after the IV administration of 94 mL of Optiray 320 intravenous contrast. Sagittal and coronal reformatted images were obtained on the technologist's workstation. DLP: 249.91 mGy-cm FINDINGS: LUNG BASES: Evaluation of the included lung bases is notable for a large hiatal hernia containing almost the entirety of the stomach. No pleural or pericardial effusions are identified. LIVER, GALLBLADDER, AND BILIARY TREE: The liver is normal in size, shape, and attenuation. Of note, there is a geographic region of focal hypoattenuation within the medial segment of the left hepatic lobe, adjacent to the falciform ligament. This finding is nonspecific but is characteristic in location for focal fatty infiltration of the liver. No focal hepatic lesion or biliary ductal dilatation is present. The gallbladder is distended. Several calcified stones are present within the gallbladder lumen. No gallbladder wall thickening or pericholecystic inflammatory changes are identified. PANCREAS: Unremarkable. SPLEEN: Unremarkable. ADRENAL GLANDS: Unremarkable. KIDNEYS AND URETERS: The left kidney is absent. The right kidney is normal in size and enhances homogeneously without focal parenchymal lesions. A 3 mm nonobstructing stone is present within the lower pole of the right kidney. There are no right-sided ureteral stones and there is no hydronephrosis of the right kidney. BLADDER: Moderately distended but otherwise unremarkable. GASTROINTESTINAL TRACT: Evaluation of the gastrointestinal system demonstrates multiple dilated air and fluid-filled loops of small bowel throughout the abdomen and pelvis indicative of a small bowel obstruction. Distended loops of small bowel are visualized measuring up to 3 cm in transverse diameter within the right hemiabdomen. The transition point is visualized within the right inguinal canal, in the region of the distal ileum. Loops of small bowel distal to this site of obstruction are decompressed. The colon is decompressed. There is scattered colonic diverticulosis, notably involving the sigmoid colon. Of note, there is circumferential thickening surrounding the mid descending colon as well as the sigmoid colon, without significant pericolonic inflammatory changes. There are no extraluminal foci of air to suggest perforation. No pericolonic fluid collections. Normal-appearing appendix is present within the right lower quadrant of the abdomen. Incidental note is made of several small diverticula along the terminal ileum. As noted above, there is a large hiatal hernia containing almost the entirety of the stomach. Also noted is a large diverticulum arising from the proximal duodenum measuring approximately 3.4 cm in diameter. ABDOMINAL WALL: An incarcerated right inguinal hernia containing a segment of the distal ileum. Evidence of prior left inguinal hernia repair. LYMPH NODES: Mildly prominent lymph nodes within the right inguinal canal. No significant mesenteric, retroperitoneal or deep pelvic adenopathy. VASCULAR: Scattered atherosclerosis of the abdominal aorta and its branching vessels. The abdominal aorta is patent and normal in course and caliber, without aneurysmal dilatation. The main portal vein as well as the right and left portal veins are patent. There is a questionable filling defect within the intrahepatic segment of the IVC (series 2, image 19). Also noted is focal narrowing of the midportion of the main portal vein. This may be secondary to mass effect upon the main portal vein by the large diverticulum arising from the proximal duodenum. The splenic vein and SMV are patent and opacified by intravenous contrast. There is normal anatomic orientation of the SMV relative to the SMA. PELVIC VISCERA: Several coarse calcifications are present within the right adnexa and may represent pelvic phleboliths or calcifications within or adjacent to the right ovary. OSSEOUS STRUCTURES: No acute osseous abnormality. Mild multilevel facet arthrosis of the imaged lumbar spine. No visible destructive osseous lesions. No acute osseous abnormality. IMPRESSION: 1. Small bowel obstruction secondary to an incarcerated right inguinal hernia. The segment of small bowel contained within the right inguinal hernia sac appears to correspond to the distal ileum. Segments of the distal ileum distal to this site of obstruction or decompressed. No extraluminal foci of air to suggest perforation. 2. Scattered colonic diverticulosis. Several small diverticula also visualized along the distal ileum. There is circumferential thickening involving the descending and sigmoid colon without significant pericolonic inflammatory changes. This finding is nonspecific and may be secondary to colonic underdistention although a focal colitis or acute diverticulitis cannot be excluded given diverticulosis of the colon. Correlate with lab values. Also consider correlation with colonoscopy following resolution of acute symptoms to exclude underlying malignancy within this region. 3. Questionable filling defect/thrombus within the intrahepatic segment of the IVC. 4. A large hiatal hernia containing almost the entirety of the stomach. 5. Cholelithiasis, without secondary signs of acute cholecystitis. 6. Focal narrowing of the mid segment of the portal vein. This may be secondary to mass effect upon the portal vein by a large diverticulum arising from the proximal duodenum. This critical result was discussed with Wilbur Godfrey PA-C at 7:00 PM on 12/03/2016 and it was ascertained that the content and urgency of the report was understood at the time of direct communication. DICTATED BY: JOSELYN CHAMBERLAIN MD DATE/TIME DICTATED:12/03/161841 COMPONENT TECHNICIAN:ROSA DATE/TIME TRANSCRIBED:12/03/161841 Assessment/Plan Assessment/Plan: This 71 year old female with hx known ulcerative colitis, GERD, large hiatal hernia, s/p left kidney donation, presents with incarcerated right inguinal hernia and associated bowel obstruction currently npo / ivf consented for surgical exploration and repair of right inguinal hernia pain control to be ordered post-operatively stress-dosed steroids hep sc - dvt ppx, to be started post-operatively patient seen & examined with As Ranked By This Provider Problem List: 1. Incarcerated hernia 2. Small bowel obstruction 3. Ulcerative colitis 4. Hiatal hernia 5. History of kidney donation PURA MAYELIN LAWRENCE 12/03/16 0985: Attending MD Review Statement Attending Statement Attending MD Statement: examined this patient, discuss w/resident/PA/PAID SEARCH MANAGER, agreed w/resident/PA/PAID SEARCH MANAGER, discussed with family, reviewed images Attending Assessment/Plan: Patient seen and examined, agree with above. Abdominal pain and right groin bulge. CT scan shows an incarcerated right inguinal hernia and an SBO. Will admit, NPO/IVF, plan for hernia repair with possible bowel resection. Discussed with family and ED staff.
--- NOTE | 2016-12-03 21:56 | Operative Report ---
Operative/Inv Procedure Report Surgery Date: 12/03/16 Name of Procedure: Open femoral hernia repair with mesh, exploratory laparotomy, small bowel resection Pre-Operative Diagnosis: Incarcerated inguinal hernia, SBO Post-Operative Diagnosis: Strangulated right femoral hernia, ischemic small bowel Estimated Blood Loss: less than 50ml Surgeon/Manager Product Support: MAYELIN SCHULER Anesthesia: general endotracheal tube IV Fluids: 1500 cc Drains: None Specimens: portion ileum, hernia sac Complications: None Condition: Stable Operative Indication: This is a 71-year-old female that presented to the emergency room with abdominal pain and right groin bulge. Patient states several days ago she had an episode of dry heaving and noticed the bulge in the right groin that was progressively getting worse. Patient underwent a CT scan that showed an incarcerated right inguinal hernia with small bowel and it causing a small bowel obstruction. I discussed with the patient the patient's daughter an open right inguinal hernia repair, possible laparotomy, possible small bowel resection. All risks including but not limited to bleeding, infection, injury to the bowel, recurrence, and possible need for further surgery were discussed in detail. The patient and the daughter understood everything and decided to proceed. Operative/Procedure Note Note: The patient was brought to the operating room and placed on the table in supine position. Venodyne stockings were placed and adequate general endotracheal anesthesia was obtained. Patient was prepped and draped in standard surgical fashion. Began the procedure by making a 5 cm incision over the right inguinal canal. The incision was carried down through subcutaneous tissue and Zoe's fascia, until the external oblique aponeurosis was encountered. Inguinal canal was visualized and the incarcerated hernia appeared to be coming below the inguinal ligament at the site of a femoral hernia. Femoral hernia sac at that point was circumferentially dissected and freed up from surrounding tissue. Right away we noted the hernia sac appeared slightly dusky and foul-smelling. The hernia sac was opened and copious amount of foul-smelling serosanguinous fluid was suctioned out. The small bowel within the sac appeared grossly ischemic. Attempt was made to bring the small bowel out through the femoral canal however that was unsuccessful. At that point the small bowel was easily reduced into the abdominal cavity, the hernia sac was ligated at the base using 2-0 Vicryl. Due to the ischemia a decision was made to use a bioA mesh. The mesh was rolled up into a plug and inserted into the femoral canal. It was secured using 2-0 Prolene suture in 2 points. The soft tissue was then closed over the mesh to the inguinal ligament. The right groin was irrigated and Zoe's fascia was closed using 3-0 Vicryl suture. At that point a midline incision was made inferior to the umbilicus. Incision was carried down through the subcutaneous tissue to the fascia and the fascia was opened. The small bowel was then brought out of the incision. We ran the small bowel to the area of the perforation, with the manipulation of the small bowel the ischemic area started draining small bowel contents. The ischemic bowel was brought away from the incision and the small bowel was divided proximally and distally to the area of ischemia using an 80 mm SHARMAINE blue staple load. The mesentery was divided using LigaSure device. The specimen was then handed off the field. Following this a side to side anastomosis was created using an 80 mm blue SHARMAINE staple load, the common enterotomy was closed using another 80 mm blue SHARMAINE stapler. Several 3-0 silk Lembert type sutures were placed along the staple line. The mesentery was closed using 3-0 silk suture as well. We examined our anastomosis appeared intact and was brought back into the abdominal cavity in the appropriate position. Following this the abdominal cavity was irrigated with 4 L of warm normal saline. No further abnormalities were noted. The fascia was closed using #1 PDS suture. Skin was closed using lavonne. Both wounds were packed with gauze in between the lavonne. Sterile dressing was placed. The patient was successfully extubated and transferred to the recovery room in stable condition. The patient tolerated the procedure well with no complications. Findings: Strangulated/ischemic/perforated small bowel in right femoral hernia, BIO-A mesh used due to contamination CC: MIRIAM ALANIS,[facility]
--- NOTE | 2016-12-03 22:03 | Admission Core Measures ---
Admission Lab Results I reviewed the following labs: Laboratory Tests 12/03 12/03 1819 1650 Chemistry Sodium (137 - 145 mmol/L) 132 L Potassium (3.5 - 5.1 mmol/L) 4.0 Chloride (98 - 107 mmol/L) 92 L Carbon Dioxide (22 - 30 mmol/L) 26 Anion Gap (5 - 16) 14 BUN (7 - 17 mg/dL) 28 H Creatinine (0.5 - 1.0 mg/dL) 0.6 Estimated GFR (>60 ml/min) > 60 BUN/Creatinine Ratio (7 - 25 %) 46.7 H Glucose (65 - 99 mg/dL) 117 H Lactic Acid (0.7 - 2.1 mmol/L) 0.9 Calcium (8.4 - 10.2 mg/dL) 9.0 Total Bilirubin (0.2 - 1.3 mg/dL) 1.4 H AST (14 - 36 U/L) 18 ALT (9 - 52 U/L) 31 Alkaline Phosphatase (<127 U/L) 78 Total Protein (6.3 - 8.2 g/dL) 6.8 Albumin (3.5 - 5.0 g/dL) 3.7 Globulin (1.9 - 4.2 gm/dL) 3.1 Albumin/Globulin Ratio (1.1 - 2.2 %) 1.2 Lipase (23 - 300 U/L) 38 Coagulation PT (9.4 - 12.5 SEC) 13.5 H INR (0.90 - 1.19) 1.29 H Hematology CBC w Diff MAN DIFF ORDERED WBC (4.8 - 10.8 /CUMM) 19.9 H RBC (4.20 - 5.40 /CUMM) 3.76 L Hgb (12.0 - 16.0 G/DL) 11.4 L Hct (37 - 47 %) 34.8 L MCV (81.0 - 99.0 FL) 92.8 MCH (27.0 - 31.0 PG) 30.5 RDW (11.5 - 14.5 %) 19.4 H Plt Count (130 - 400 /CUMM) 361 MPV (7.4 - 10.4 FL) 8.7 Gran % (42.2 - 75.2 %) 92.6 H Lymphocytes % (20.5 - 51.1 %) 2.0 L Monocytes % (1.7 - 9.3 %) 5.2 Eosinophils % (0 - 5 %) 0 Basophils % (0.0 - 2.0 %) 0.2 Absolute Granulocytes (1.4 - 6.5 /CUMM) 18.4 H Absolute Lymphocytes (1.2 - 3.4 /CUMM) 0.4 L Absolute Monocytes (0.10 - 0.60 /CUMM) 1.0 H Absolute Eosinophils (0.0 - 0.7 /CUMM) 0 Absolute Basophils (0.0 - 0.2 /CUMM) 0 Platelet Estimate (ADEQUATE) ADEQUATE Poikilocytosis 1+ Elliptocytes 1+ Schistocytes RARE PUBS MCHC (33.0 - 37.0 G/DL) 32.8 L Admission Meds I reviewed the following Meds: Current Medications Sig/Timoteo Start time Last Medication Dose Stop Time Status Admin Acetaminophen 1,000 MG Q6P PRN 12/03 2199 UNVr (Ofirmev) N/A 1 UNIT (No Carrier) Ceftriaxone Sodium 1,000 MG DAILY 12/03 2199 UNVr (Rocephin) Famotidine 20 MG BID 12/03 2199 UNVr (Pepcid) Heparin Sodium 5,000 UNIT Q8 12/04 0600 UNVr (Porcine) Hydrocortisone 100 MG Q12 12/04 0800 UNVr Sodium Succinate 12/04 0801 (Solucortef) Mercaptopurine 75 MG DAILY 12/04 1000 UNVr (Purinethol 50MG Tab) Metronidazole 500 MG IQ8 12/03 220 UNVr (Flagyl) N/A 1 UNIT (No Carrier) Morphine Sulfate 2 MG Q4-6 PRN PRN 12/03 2199 UNVr (Morphine) Morphine Sulfate 4 MG Q4-6 PRN PRN 12/03 220 UNVr (Morphine) Ondansetron HCl 4 MG Q6P PRN 12/03 220 UNVr (Zofran) Potassium Chloride 20 MEQ Q10H 12/03 220 UNVr (KCl 20MEQ in D5W NS 1000ML) Dextrose/Sodium 1,000 ML Chloride (D5-Normal Saline) Acute Coronary Syndrome Inclusion Criteria ACS Diagnosis No Inpatient Core Measures LDL Reminder: If No, please order W/I first 24hr of stay Congestive Heart Failure Inclusion Criteria CHF Diagnosis No Cerebrovascular accident Inclusion Criteria CVA/TIA Diagnosis No Inpatient Core Measures Bedside Swallow Eval Reminder: If BSE failed, place ST order Antithrombotic Reminder: Order Antithrombotic Medication by end of day 2 Antithrombotic Reminder: Document Reason Antithrombotic Not ordered by end of day 2 AFIB/Flutter Reminder: If Present, add to problem list AFIB/Flutter Reminder: Order Anticoag Medication for pts with AFIB/Flutter Atherosclerosis Reminder: If Present, add to problem list LDL Reminder: If No, please order W/I first 24hr of stay PT Order Reminder: If No, please order Venous thromboembolism Inpatient Core Measures VTE Risk Factors: Age > 40, Inflammatory bowel Dx, Surgery No [facility] VTE prophylaxis d/t No contraindications No VTE Pharm Prophylaxis d/t No contraindications Inclusion Criteria - Per Current guidelines, there needs to be overlap - treatment for the first 5 days of Warfarin therapy. - Parenteral Anticoagulation (IV or SC) needs to be - given along with Warfarin therapy. VTE Diagnosis No VTE Type NONE VTE Confirmed by (Test) NONE Problem List As ranked by this Provider includes Assessment & Plan 1. Incarcerated hernia 2. Small bowel obstruction 3. History of kidney donation 4. Hiatal hernia 5. Ulcerative colitis HOME MEDS Home Med List Alendronate Sodium 35 MG TABLET 1 TAB PO QW BONES (Reported) Cholecalciferol (Vitamin D3) (Vitamin D) 1,000 UNIT TABLET 1 TAB PO DAILY SUPPLEMENT (Reported) Cyanocobalamin (Vitamin B-12) (Vitamin B-12) 5,000 MCG TAB.SUBL 1 TAB SL DAILY SUPPLEMENT (Reported) Famotidine 20 MG TABLET 1 TAB PO BID GI (Reported) Mercaptopurine 50 MG TABLET 1.5 TAB PO DAILY ULCERATIVE COLITIS (Reported) Multivitamin (Multi-Day Vitamins) 1 EACH TABLET 1 TAB PO DAILY SUPPLEMENT ( Reported) [place]-3 Fatty Acids ([place]-3) (Unknown Strength) CAPSULE (Unknown Dose) PO DAILY SUPPLEMENT (Reported) Potassium Chloride 20 MEQ TAB.ER.PRT 1 TAB PO DAILY SUPPLEMENT (Reported) Vitamin E Mixed (Vitamin E) 400 UNIT TABLET 1 TAB PO BID SUPPLEMENT (Reported )
[2016-12-03 22:53] VITALS: BP 98/60
--- NOTE | 2016-12-03 23:04 | RADIOLOGY REPORT ---
EXAMINATION: XR PORTABLE CHEST CLINICAL INFORMATION: NG tube placement. Postoperative. COMPARISON: 05/06/2016 TECHNIQUE: Portable frontal view of the chest was obtained. FINDINGS: The enteric tube terminates over the mid esophagus. Cardiac leads overlie the chest. The lungs are well expanded. Minimal left basilar atelectasis. No effusion or edema. No pneumothorax. The cardiomediastinal silhouette is unchanged, remaining prominent. IMPRESSION: Enteric tube terminating over the mid esophagus. Recommend advancement. Left basilar atelectasis.
[2016-12-04 00:27] VITALS: BP 104/50
[2016-12-04 06:21] VITALS: BP 100/60
[2016-12-04 09:33] LABS: ABSOLUTE BASOPHIL COUNT 0 /CUMM (0.0-0.2); ABSOLUTE EOSINOPHIL COUNT 0 /CUMM (0.0-0.7); ABSOLUTE GRANULOCYTE CT 9.8 /CUMM (1.4-6.5); ABSOLUTE LYMPH COUNT 0.2 /CUMM (1.2-3.4); ABSOLUTE MONOCYTE COUNT 0.5 /CUMM (0.10-0.60); BASOPHIL % 0 % (0.0-2.0); EOSINOPHIL % 0.1 % (0-5); GRANULOCYTE % 92.8 % (42.2-75.2); MEAN CORPUSCULAR HGB 30.7 PG (27.0-31.0); MEAN CORPUSCULAR HGB CONC 32.8 G/DL (33.0-37.0); MEAN CORPUSCULAR VOLUME 93.7 FL (81.0-99.0); MEAN PLATELET VOLUME 9.1 FL (7.4-10.4); PLATELET COUNT 295 /CUMM (130-400); RBC DISTRIBUTION WIDTH 19.2 % (11.5-14.5); RED BLOOD CELL CT 3.21 /CUMM (4.20-5.40); WHITE BLOOD CELL COUNT 10.6 /CUMM (4.8-10.8)
--- NOTE | 2016-12-04 09:44 | PN- General Surgery ---
See Addendum Subjective Subjective: No acute overnight events reported post operatively. Patient's pain is under control with IV morphine at this time. She denies chest pain, shortness of breath and difficulty breathing. Denies nausea at this time, has NGT in place but there is no output and patient finds it irritating to her throat. Objective Vital Signs and I&Os Vital Signs Date Time Temp Pulse Resp B/P B/P Pulse O2 O2 Flow FiO2 Mean Ox Delivery Rate 12/04 0621 97.7 82 16 100/60 93 Room Air 12/04 0114 96 Nasal 1.0L Cannula 12/04 0027 98.0 68 16 104/50 95 Room Air 12/03 2253 97.8 64 20 98/60 95 Nasal 1.0L Cannula 12/03 1912 98.9 67 18 124/59 96 Room Air 12/03 1803 Room Air 12/03 1623 96.9 98 18 116/68 100 Room Air Intake & Output 12/04 1600 12/04 0800 / 0000 / 1600 12/03 0800 05/ 0000 Intake Total 800 1000 Output Total 450 Balance 350 1000 Intake, IV 800 1000 Intake, Oral 0 Number 0 Bowel Movements Output, 0 Gastric Drainage Output, Urine 450 Patient 109 lb 110 lb Weight Weight Reported by Patient Reported by Patient Measurement Method Physical Exam: General: Alert and oriented, no acute distress Cardiac: RRR, s1s2 Pulmonary: CTA bilaterally Abdomen: Non-distended, some duc-incisional tenderness. Extremities: Moves all extremities, distal sensation intact. Skin warm. No peripheral edema. Bilateral calves soft and non-tender Surgical Site: Abdomen, serosanguinous staining to lower part of abdominal dressing, dry now, reinforced. No excessive redness or warmth noted. Assessment/Plan Assessment/Plan This is a 71 year old female, POD 1, s/p repair of right femoral hernia and small bowel resection for incarcerated intestine. -Continue npo, await return of bowel function. -Continue IV fluids, iv abx -Chloraseptic spray for throat irritation -Stress dose of solumedrol today, then start po prednisone tomorrow -Appreciate Dr. 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 Coley Core Measures/Miscellaneous Venous Thromboembolism VTE Risk Factors: Age > 40, Surgery VTE Contraindications: No Contraindications VTE Diagnosis: No VTE Type: NONE VTE Confirmed by (Test): NONE Beta Margret Is Beta Margret a Home Med? No Antibiotics Is Patient on Antibiotics? Yes If Yes: infection
--- NOTE | 2016-12-04 14:00 | Cons- Medical ---
General Information and HPI Consulting Request Date of Consult: 12/04/16 Requested By: MAYELIN NEVES DO Reason for Consult: Postop evaluation to assure stability in her medical conditions Source of Information: patient, old records Exam Limitations: no limitations History of Present Illness: 71-year-old white female has had abdominal pain for 4 days "after heavy lifting and cleaning it "comes in with a bulge in the right inguinal area and abdominal pain. Evaluation showed a high white count and the incarcerated right hernia was also ischemic small bowel area and patient went to the operating room had a repair of the hernia and also needed a bowel resection. Patient did well at the present time she is in her room in no acute distress some pain after surgery. We'll continue observation, her white count today is down Allergies/Medications Allergies: Coded Allergies: NO KNOWN ALLERGIES (03/21/14) Home Med List: Alendronate Sodium 35 MG TABLET 1 TAB PO QW BONES (Reported) Cholecalciferol (Vitamin D3) (Vitamin D) 1,000 UNIT TABLET 1 TAB PO DAILY SUPPLEMENT (Reported) Cyanocobalamin (Vitamin B-12) (Vitamin B-12) 5,000 MCG TAB.SUBL 1 TAB SL DAILY SUPPLEMENT (Reported) Famotidine 20 MG TABLET 1 TAB PO BID GI (Reported) Mercaptopurine 50 MG TABLET 1.5 TAB PO DAILY ULCERATIVE COLITIS (Reported) Multivitamin (Multi-Day Vitamins) 1 EACH TABLET 1 TAB PO DAILY SUPPLEMENT ( Reported) [place]-3 Fatty Acids ([place]-3) (Unknown Strength) CAPSULE (Unknown Dose) PO DAILY SUPPLEMENT (Reported) Potassium Chloride 20 MEQ TAB.ER.PRT 1 TAB PO DAILY SUPPLEMENT (Reported) Vitamin E Mixed (Vitamin E) 400 UNIT TABLET 1 TAB PO BID SUPPLEMENT (Reported ) Current Medications: Current Medications Sig/Timoteo Start time Last Medication Dose Route Stop Time Status Admin Acetaminophen 1,000 MG Q6P PRN 12/03 2199 AC N/A 1 UNIT IV Ceftriaxone Sodium 1,000 MG 0 12/03 2200 AC / IV 0002 Famotidine 20 MG BID 12/03 2200 AC / IV 0857 Heparin Sodium 5,000 UNIT Q8 12/04 0600 AC 12/04 (Porcine) SC 1315 Hydrocortisone 100 MG 0800 12/04 0800 DC / Sodium Succinate IV 12/04 0801 0857 Mercaptopurine 75 MG DAILY 12/04 1000 AC 12/04 PO 1113 Metronidazole 500 MG Q8 12/03 2199 AC 12/04 N/A 1 UNIT IV 1315 Morphine Sulfate 2 MG Q4-6 PRN PRN 12/03 2199 AC 12/04 IV 0539 Morphine Sulfate 4 MG Q4-6 PRN PRN 12/03 220 AC 12/04 IV 0901 Morphine Sulfate 0 .STK-MED ONE 12/03 1817 DC .ROUTE Morphine Sulfate 2 MG ONCE ONE 12/03 174 DC 12/03 IV 12/03 1746 1813 Ondansetron HCl 4 MG Q6P PRN 12/03 2199 AC IV Phenol 2 SPRAY Q2P PRN 12/04 0945 AC EXT Potassium Chloride 20 MEQ Q10H 12/03 2199 AC 12/04 Dextrose/Sodium 1,000 ML IV 0857 Chloride Prednisone 10 MG Q48@0800 12/05 0800 AC PO Sodium Chloride 1,000 ML BOLUS ONE 12/03 1744 DC 12/03 IV 12/03 1844 1813 Review of Systems Review of Systems Constitutional: Reports: see HPI. 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 FH: cancer MOTHER, , Age 96; Cause: Dementia. Psychosocial History Who Do You Live With? spouse (Smiley Orozco (dtr)), child Services at Home: None Primary Language: Latvian Smoking Status: Former Smoker ETOH Use: denies use Illicit Drug Use: denies illicit drug use Living Will? yes Power of Specification Manager/HCP? yes Name of POA/HCP: Pt's 2 dtrs (Smiley Orozco & Juliana Gracia) Functional Ability ADLs Independent: dressing, eating, toileting, bathing. Ambulation: independent IADLs Independent: shopping, housework, finances, food prep, telephone, transportation , medication admin. Exam & Diagnostic Data Last 24 Hrs of Vital Signs/I&O Vital Signs Date Time Temp Pulse Resp B/P B/P Pulse O2 O2 Flow FiO2 Mean Ox Delivery Rate 12/04 0621 97.7 82 16 100/60 93 Room Air 12/04 0114 96 Nasal 1.0L Cannula 12/04 0027 98.0 68 16 104/50 95 Room Air 12/03 2253 97.8 64 20 98/60 95 Nasal 1.0L Cannula 12/03 1912 98.9 67 18 124/59 96 Room Air 12/03 1803 Room Air 12/03 1623 96.9 98 18 116/68 100 Room Air Intake & Output 12/04 1600 / 0800 05/ 0000 Intake Total 800 1000 Output Total 450 Balance 350 1000 Intake, IV 800 1000 Intake, Oral 0 Number 0 Bowel Movements Output, 0 Gastric Drainage Output, Urine 450 Patient 109 lb 110 lb Weight Weight Reported by Patient Reported by Patient Measurement Method Physical Exam General Appearance: no apparent distress, alert, awake Head: atraumatic Eyes: Bilateral: normal appearance, PERRL, EOMI. Ears, Nose, Throat: normal pharynx Neck: normal inspection, supple, full range of motion Respiratory: normal breath sounds, no respiratory distress, lungs clear Cardiovascular: regular rate/rhythm Gastrointestinal: tenderness (status post hernia repair and ) Extremities: no edema Neurologic/Psych: no motor/sensory deficits, awake, alert, oriented x 3 Cranial Nerves: normal hearing (intact) Skin: normal color Last 24 Hrs of Labs/Woody: Laboratory Tests 12/04/16 0650: Anion Gap 8, Estimated GFR > 60, BUN/Creatinine Ratio 30.0 H, Glucose 116 H, Magnesium 1.6, Total Bilirubin 0.7, Direct Bilirubin 0.3, AST 12 L, ALT 26, Alkaline Phosphatase 48, Total Protein 4.7 L, Albumin 2.3 L, CBC w Diff MAN DIFF ORDERED, RBC 3.21 L, MCV 93.7, MCH 30.7, RDW 19.2 H, MPV 9.1, Gran % 92.8 H, Lymphocytes % 2.1 L, Monocytes % 5.0, Eosinophils % 0.1, Basophils % 0 L, Absolute Granulocytes 9.8 H, Segmented Neutrophils 68, Band Neutrophils 22 H, Absolute Lymphocytes 0.2 L, Lymphocytes 4 L, Monocytes 6, Absolute Monocytes 0.5, Absolute Eosinophils 0, Absolute Basophils 0, Poikilocytosis 2+, Anisocytosis 2+, Ovalocytes 1+, PUBS MCHC 32.8 L 12/03/16 2103: Lactic Acid Cancelled 12/03/16 1819: Lactic Acid 0.9 12/03/16 1650: Anion Gap 14, Estimated GFR > 60, BUN/Creatinine Ratio 46.7 H, Glucose 117 H, Calcium 9.0, Total Bilirubin 1.4 H, AST 18, ALT 31, Alkaline Phosphatase 78, Total Protein 6.8, Albumin 3.7, Globulin 3.1, Albumin/Globulin Ratio 1.2, Lipase 38, PT 13.5 H, INR 1.29 H, CBC w Diff MAN DIFF ORDERED, RBC 3.76 L, MCV 92.8, MCH 30.5, RDW 19.4 H, MPV 8.7, Gran % 92.6 H, Lymphocytes % 2.0 L, Monocytes % 5.2, Eosinophils % 0, Basophils % 0.2, Absolute Granulocytes 18.4 H, Absolute Lymphocytes 0.4 L, Absolute Monocytes 1.0 H, Absolute Eosinophils 0, Absolute Basophils 0, Platelet Estimate ADEQUATE, Poikilocytosis 1+, Elliptocytes 1+, Schistocytes RARE, PUBS MCHC 32.8 L Diagnostic Data CXR Results Minimal basilar atelectasis Assessment/Plan Assessment/Plan None Problem List: 1. Small bowel obstruction 2. Incarcerated hernia 3. Ulcerative colitis Copies To: MAYELIN NEVES DO; MIKIE ALANIS,CRYSTAL PINEDA MD,[facility] Consult Acknowledgment - Thank you for your consult request. Attending MD Review Statement Attending Statement Attending MD Statement: examined this patient Attending Assessment/Plan: Continue postoperative care
[2016-12-04 15:54] VITALS: BP 98/56
[2016-12-04 22:09] VITALS: BP 98/50
[2016-12-05 06:30] VITALS: BP 104/56
--- NOTE | 2016-12-05 07:55 | PN- General Surgery ---
See Addendum Subjective Subjective: Awake, alert No complaints overnight Reported confusion yesterday afternoon after receiving morphine Completely oriented today and pain free without meds Objective Vital Signs and I&Os Vital Signs Date Time Temp Pulse Resp B/P B/P Pulse O2 O2 Flow FiO2 Mean Ox Delivery Rate 12/05 0630 98.1 80 18 104/56 91 Room Air 12/04 2209 97.9 80 16 98/50 95 Room Air 12/04 1554 98.1 83 16 98/56 93 Intake & Output 12/05 0812/05 0000 12/04 1600 12/04 0800 12/04 0000 12/03 1600 Intake Total 800 300 881 416 0640 Output Total 450 300 450 Balance 350 300 268 255 6754 Intake, IV 800 230 373 3444 Intake, Oral 0 300 0 Number 0 Bowel Movements Output, 0 Gastric Drainage Output, Urine 450 300 450 Patient 109 lb 110 lb Weight Weight Reported by Patient Reported by Patient Measurement Method Physical Exam: afebrile, vss General: alert and oriented times three Chest: clear anteriorly bilaterally, RRR Abd: soft, nondistended. +bs Ext: warm, no edema, positive sensate, no calf tenderness Wound: dressing changed, skip packing replaced with gauze, wound looks clean and dry without active drainage or erythema Assessment/Plan Assessment/Plan 71 yo female with history of colitis and nephrectomy for donor kidney, now s/p r fem hernia repair, ex lap, sb rsxn pod 2 no further morphine - confusion tylenol for pain - pt is not requesting anything at this time bowel is waking up - no flatus yet but +bs, nondistended await flatus then clears npo/ivf ambulate dc petit continue antibiotics for peritonitis prednisone as at home for colitis packing changed will discuss with Dr Coley Core Measures/Miscellaneous Venous Thromboembolism VTE Risk Factors: Age > 40, Surgery VTE Contraindications: No Contraindications VTE Diagnosis: No VTE Type: NONE VTE Confirmed by (Test): NONE Beta Margret Is Beta Margret a Home Med? No Antibiotics Is Patient on Antibiotics? Yes If Yes: infection
[2016-12-05] MEDS ORDERED: PREDNISONE10 M2 PO (08:00)
[2016-12-05] MEDS ORDERED: APRISO0.375 G1 PO (08:23)
[2016-12-05 08:51] LABS: ABSOLUTE BASOPHIL COUNT 0 /CUMM (0.0-0.2); ABSOLUTE EOSINOPHIL COUNT 0 /CUMM (0.0-0.7); ABSOLUTE GRANULOCYTE CT 9.7 /CUMM (1.4-6.5); ABSOLUTE LYMPH COUNT 0.5 /CUMM (1.2-3.4); ABSOLUTE MONOCYTE COUNT 0.8 /CUMM (0.10-0.60); BASOPHIL % 0 % (0.0-2.0); EOSINOPHIL % 0.1 % (0-5); HEMATOCRIT 26.8 % (37-47); MEAN CORPUSCULAR HGB 30.7 PG (27.0-31.0); MEAN CORPUSCULAR HGB CONC 32.9 G/DL (33.0-37.0); MEAN CORPUSCULAR VOLUME 93.4 FL (81.0-99.0); MEAN PLATELET VOLUME 8.7 FL (7.4-10.4); PLATELET COUNT 307 /CUMM (130-400); RBC DISTRIBUTION WIDTH 19.6 % (11.5-14.5); RED BLOOD CELL CT 2.87 /CUMM (4.20-5.40)
--- NOTE | 2016-12-05 09:21 | PN- Medicine Consult ---
Assessment/Plan Assessment/Plan Assessment: Patient is status post day 2 emergent colectomy for incarcerated hernia/ischemic small bowel. Leukocytosis currently on antibiotics. She appears well postoperative with resolution of leukocytosis. However we'll defer antibiotic to surgical team. Plan: Antibiotic as per primary team Advance diet as tolerated Continue other home medications Ambulate patient Problem List: 1. Incarcerated hernia 2. Small bowel obstruction 3. Colitis Subjective Subjective: Patient has minimal pain. She denies passing gas. Review of Systems Constitutional: Denies: no symptoms, see HPI, chills, diaphoresis, fever, malaise, weakness, unexplained weight loss. Cardiovascular: Denies: no symptoms, see HPI, chest pain, edema, orthopena, palpitations, peripheral edema, syncope. Respiratory: Denies: no symptoms, see HPI, cough, hemoptysis, orthopnea, short of breath, sputum production, stridor, wheezing. Gastrointestinal: Reports: abdominal pain. Genitourinary: Denies: no symptoms, see HPI, discharge, dysuria, frequency, hematuria, hesitation, nocturia, pain, urgency. Musculoskeletal: Denies: no symptoms, see HPI, back pain, gout, joint pain, joint swelling, muscle pain, muscle stiffness, neck pain. Objective Last 24 Hrs of Vital Signs/I&O Vital Signs Date Time Temp Pulse Resp B/P B/P Pulse O2 O2 Flow FiO2 Mean Ox Delivery Rate 12/05 0530 98.1 80 18 104/56 91 Room Air 12/04 2209 97.9 80 16 98/50 95 Room Air / 1554 98.1 83 16 98/56 93 Intake & Output 12/05 1600 12/05 0800 12/05 0000 Intake Total 800 300 Output Total 450 Balance 350 300 Intake, IV 800 Intake, Oral 0 300 Output, Urine 450 Physical Exam General Appearance: alert, awake, comfortable Cardiovascular: regular rate/rhythm Respiratory: normal breath sounds, lungs clear Abdomen: tenderness Extremities: no edema Current Medications: Current Medications Sig/Timoteo Start time Last Medication Dose Route Stop Time Status Admin Acetaminophen 1,000 MG Q6P PRN 12/03 2199 AC N/A 1 UNIT IV Ceftriaxone Sodium 1,000 MG 22012/03 2200 AC 05/07 IV 2100 Famotidine 20 MG BID 12/03 2199 AC /08 IV 0810 Heparin Sodium 5,000 UNIT Q8 12/04 0600 AC 12/05 (Porcine) SC 0545 Mercaptopurine 75 MG DAILY 12/04 1000 AC 12/05 PO 0810 Mesalamine 500 MG TID 12/05 999 AC PO Metronidazole 500 MG Q8 12/03 2199 AC 12/05 N/A 1 UNIT IV 0545 Morphine Sulfate 2 MG Q4-6 PRN PRN 12/03 2199 DC 12/04 IV 1938 Morphine Sulfate 4 MG Q4-6 PRN PRN 12/03 2199 DC 12/04 IV 0901 Ondansetron HCl 4 MG Q6P PRN 12/03 2199 AC IV Phenol 2 SPRAY Q2P PRN 12/04 0945 AC EXT Potassium Chloride 20 MEQ Q10H 12/03 2199 AC 12/05 Dextrose/Sodium 1,000 ML IV 0546 Chloride Prednisone 10 MG Q48@0800 12/05 0800 AC 12/05 PO 0810 Results Last 24 Hrs Lab/Woody Results: Laboratory Tests 12/05/16 0650: Anion Gap 8, Estimated GFR > 60, BUN/Creatinine Ratio 18.0, Magnesium 1.8, CBC w Diff Pending, WBC Pending, RBC Pending, Hgb Pending, Hct Pending, MCV Pending, MCH Pending, RDW Pending, Plt Count Pending, MPV Pending, Gran % Pending, Lymphocytes % Pending, Monocytes % Pending, Eosinophils % Pending, Basophils % Pending, Absolute Granulocytes Pending, Absolute Lymphocytes Pending, Absolute Monocytes Pending, Absolute Eosinophils Pending, Absolute Basophils Pending, PUBS MCHC Pending
[2016-12-05 10:15] LABS: GRANULOCYTE % 88.5 % (42.2-75.2)
[2016-12-05 14:50] VITALS: BP 108/58
[2016-12-05 22:05] VITALS: BP 104/66
[2016-12-06 07:00] VITALS: BP 100/54
[2016-12-06 08:04] LABS: ABSOLUTE BASOPHIL COUNT 0 /CUMM (0.0-0.2); ABSOLUTE EOSINOPHIL COUNT 0 /CUMM (0.0-0.7); ABSOLUTE GRANULOCYTE CT 9.2 /CUMM (1.4-6.5); ABSOLUTE LYMPH COUNT 0.6 /CUMM (1.2-3.4); ABSOLUTE MONOCYTE COUNT 0.6 /CUMM (0.10-0.60); BASOPHIL % 0.2 % (0.0-2.0); EOSINOPHIL % 0.2 % (0-5); MEAN CORPUSCULAR HGB CONC 33.1 G/DL (33.0-37.0); MEAN CORPUSCULAR VOLUME 93.7 FL (81.0-99.0); MEAN PLATELET VOLUME 8.5 FL (7.4-10.4); PLATELET COUNT 309 /CUMM (130-400); RBC DISTRIBUTION WIDTH 19.7 % (11.5-14.5); RED BLOOD CELL CT 2.77 /CUMM (4.20-5.40); WHITE BLOOD CELL COUNT 10.5 /CUMM (4.8-10.8)
--- NOTE | 2016-12-06 08:06 | PN- General Surgery ---
See Addendum Subjective Subjective: + flatus, feels well, no comlaints, no pain. no nv. Objective Vital Signs and I&Os Vital Signs Date Time Temp Pulse Resp B/P B/P Pulse O2 O2 Flow FiO2 Mean Ox Delivery Rate 12/06 0700 99.0 55 20 100/54 93 Room Air 12/05 2205 98.6 75 18 104/66 95 Room Air 12/05 1450 98.0 72 18 108/58 95 Room Air Intake & Output 12/06 1600 12/06 0800 12/06 0000 12/05 1600 12/05 0800 12/05 0000 Intake Total 800 720 800 300 Output Total 350 450 Balance 800 370 350 300 Intake, IV 800 600 800 Intake, Oral 120 0 300 Output, Urine 350 450 Patient 108 lb Weight Physical Exam: General: alert and oriented times three Chest: clear anteriorly bilaterally, RRR Abd: soft, nondistended. +bs, non tender. Ext: warm, no edema, positive sensate, no calf tenderness Wound: dressing with scant s/s drainage. wound is without infection. dressing changed, skip packing replaced with gauze. [id number]- [id number] Assessment/Plan Assessment/Plan 71 yo female with history of colitis and nephrectomy for donor kidney, now s/p r fem hernia repair, ex lap, sb rsxn pod 3 tylenol for pain, currently pain free + flatus, +bs, nondistended, non tender. start clears. dc ivf when tolerating po adequately ambulate continue antibiotics for peritonitis prednisone as at home for colitis packing changed Core Measures/Miscellaneous Venous Thromboembolism VTE Risk Factors: Age > 40, Surgery VTE Contraindications: No Contraindications VTE Diagnosis: No VTE Type: NONE VTE Confirmed by (Test): NONE Beta Margret Is Beta Margret a Home Med? No Antibiotics Is Patient on Antibiotics? Yes If Yes: infection
--- NOTE | 2016-12-06 09:09 | PN- Medicine Consult ---
Assessment/Plan Assessment/Plan Assessment: Patient is status post day 3 emergent colectomy for incarcerated hernia/ischemic small bowel. Possible peritonitis with leukocytosis currently on antibiotics. She appears well postoperative and tolerating diet. Noted hypokalemia. Plan: Antibiotic as per primary team, consider changing to by mouth Consider high-dose potassium chloride 40 mEq twice a day Repeat potassium levels in a.m. Advance diet as tolerated Continue other home medications Ambulate patient Problem List: 1. Incarcerated hernia 2. Small bowel obstruction Subjective Subjective: Patient has minimal pain and she is tolerating oral diet Review of Systems Constitutional: Denies: no symptoms, see HPI, chills, diaphoresis, fever, malaise, weakness, unexplained weight loss. Cardiovascular: Denies: no symptoms, see HPI, chest pain, edema, orthopena, palpitations, peripheral edema, syncope. Respiratory: Denies: no symptoms, see HPI, cough, hemoptysis, orthopnea, short of breath, sputum production, stridor, wheezing. Gastrointestinal: Reports: abdominal pain. Genitourinary: Denies: no symptoms, see HPI, discharge, dysuria, frequency, hematuria, hesitation, nocturia, pain, urgency. Musculoskeletal: Denies: no symptoms, see HPI, back pain, gout, joint pain, joint swelling, muscle pain, muscle stiffness, neck pain. Objective Last 24 Hrs of Vital Signs/I&O Vital Signs Date Time Temp Pulse Resp B/P B/P Pulse O2 O2 Flow FiO2 Mean Ox Delivery Rate 12/06 0700 99.0 55 20 100/54 93 Room Air 12/05 2205 98.6 75 18 104/66 95 Room Air 12/05 1450 98.0 72 18 108/58 95 Room Air Intake & Output 12/06 1600 12/06 0800 05/ 0000 Intake Total 830 800 Output Total 250 Balance 580 800 Intake, IV 800 800 Intake, Oral 30 Number 0 Bowel Movements Output, Urine 250 Physical Exam General Appearance: alert, comfortable Cardiovascular: regular rate/rhythm Respiratory: normal breath sounds, lungs clear Abdomen: normal bowel sounds, soft, tenderness Extremities: no edema Current Medications: Current Medications Sig/Timoteo Start time Last Medication Dose Route Stop Time Status Admin Acetaminophen 1,000 MG Q6P PRN 12/03 2199 AC N/A 1 UNIT IV Ceftriaxone Sodium 1,000 MG 12/03 AC 12/05 IV 2121 Dextrose/Sodium 1,000 ML Q10H 12/05 1815 DC 12/06 Chloride [place] 0620 Famotidine 20 MG BID 12/03 2200 AC 12/05 IV 2120 Heparin Sodium 5,000 UNIT Q8 12/04 0600 AC 12/05 (Porcine) SC 2120 Mercaptopurine 75 MG DAILY 12/04 1000 AC 12/05 PO 0810 Mesalamine 500 MG TID 12/05 1000 AC 12/05 PO 2120 Metronidazole 500 MG Q8 12/03 2200 AC 12/06 N/A 1 UNIT IV 0617 Ondansetron HCl 4 MG Q6P PRN 12/03 2200 AC IV Patient Medication 1 ED .STK-MED ONE 12/05 1406 DC Teaching ED 12/05 1407 Phenol 2 SPRAY Q2P PRN 12/04 0945 AC EXT Potassium Chloride 20 MEQ BID 12/06 1000 AC PO Potassium Chloride 20 MEQ Q8H 12/06 0830 AC Dextrose/Sodium 1,000 ML IV Chloride Potassium Chloride 10 MEQ ONCE ONE 12/05 1045 DC 12/05 IV 12/05 1046 1239 Potassium Chloride 20 MEQ Q10H 12/03 2200 DC 12/05 Dextrose/Sodium 1,000 ML IV 1505 Chloride Prednisone 10 MG Q48@0800 12/05 0800 AC 12/05 PO 0810 Results Last 24 Hrs Lab/Woody Results: Laboratory Tests 12/06/16 0630: Anion Gap 8, Estimated GFR > 60, BUN/Creatinine Ratio 16.0, Magnesium 1.7, CBC w Diff Pending, WBC Pending, RBC Pending, Hgb Pending, Hct Pending, MCV Pending, MCH Pending, RDW Pending, Plt Count Pending, MPV Pending, Gran % Pending, Lymphocytes % Pending, Monocytes % Pending, Eosinophils % Pending, Basophils % Pending, Absolute Granulocytes Pending, Absolute Lymphocytes Pending, Absolute Monocytes Pending, Absolute Eosinophils Pending, Absolute Basophils Pending, PUBS MCHC Pending 12/05/16 1235: Urinalysis MOD H, Urine Color TAYLOR, Urine Clarity CLEAR, Urine pH 6.0, Ur Specific [place] 1.025, Urine Protein 30 H, Urine Ketones NEG, Urine Nitrite POS H, Urine Bilirubin NEG, Urine Urobilinogen 0.2, Ur Leukocyte Esterase TRACE H, Ur Microscopic SEDIMENT EXAMINED, Urine RBC 5-10 H, Urine WBC 1-3 H, Ur Epithelial Cells MOD H, Urine Bacteria FEW H, Hyaline Casts 1-3 H, Granular Casts RARE H, Urine Hemoglobin TRACE-INTACT, Urine Glucose NEG
[2016-12-06 09:34] VITALS: BP 108/50
[2016-12-06 09:46] LABS: GRANULOCYTE % 88.3 % (42.2-75.2)
[2016-12-06 14:49] VITALS: BP 110/70
[2016-12-06 22:35] VITALS: BP 120/76
[2016-12-07 06:28] VITALS: BP 130/82
--- NOTE | 2016-12-07 07:48 | PN- General Surgery ---
See Addendum Subjective Subjective: Reports some "gas discomfort" and expected incisional pain. Tolerating clears. No nausea. Passing flatus and +bms yesterday (twice). Ambulating well. No dizziness. No shortness of breath. No chest pains. Objective Vital Signs and I&Os Vital Signs Date Time Temp Pulse Resp B/P B/P Pulse O2 O2 Flow FiO2 Mean Ox Delivery Rate 12/08 627 98.1 75 18 130/82 93 Room Air 12/06 2235 98.1 70 20 120/76 94 Room Air 12/06 1449 98.0 74 20 110/70 96 12/06 1141 98.0 12/06 0934 82 108/50 93 Room Air Intake & Output 12/07 0000 12/06 1600 12/06 0000 12/05 1600 Intake Total 1000 1000 1530 830 800 720 Output Total 300 400 250 350 Balance 700 1000 1130 580 800 370 Intake, IV 1000 1000 1050 800 800 600 Intake, Oral 480 30 120 Number 1 0 Bowel Movements Output, Urine 300 400 250 350 Patient 108 lb Weight Physical Exam: General - alert & oriented x 3. comfortable. no acute distress. Lungs - clear bilaterally. Cardiac - s1s2. reg. Abdomen - soft. active bowel sounds appreciated. dressings changed. packing removed and replaced along midline incision. Extremities - warm bilaterally. no c/c/e. calves soft and nontender b/l. Current Medications: Current Medications Sig/Timoteo Start time Last Medication Dose Route Stop Time Status Admin Acetaminophen 1,000 MG Q6P PRN 12/03 2199 AC 12/06 N/A 1 UNIT IV 1218 Ceftriaxone Sodium 1,000 MG 12/03 AC 12/06 IV 2058 Dextrose/Sodium 1,000 ML Q10H 12/05 1815 DC 12/06 [place] 0620 Docusate Sodium 100 MG BID 12/06 2199 AC PO Famotidine 20 MG BID 12/03 2199 AC 12/06 IV 2058 Heparin Sodium 5,000 UNIT Q8 12/04 599 AC 12/07 (Porcine) SC 0609 Mercaptopurine 75 MG DAILY 12/04 1000 AC 12/06 PO 09 Mesalamine 500 MG TID 12/05 1000 AC 12/06 PO 2057 Metoclopramide HCl 10 MG AC 12/07 699 AC 12/07 PO 0609 Metronidazole 500 MG Q8 12/03 2200 AC 12/07 N/A 1 UNIT IV 0609 Ondansetron HCl 4 MG Q6P PRN 12/03 2200 AC IV Patient Medication 1 ED .STK-MED ONE 12/06 1404 DC Teaching ED 12/06 1405 Phenol 2 SPRAY Q2P PRN 12/04 0945 AC EXT Potassium Chloride 40 MEQ ONCE ONE 12/06 1615 DC 12/06 PO 12/06 1616 1656 Potassium Chloride 20 MEQ BID 12/06 1000 AC 12/06 PO 2058 Potassium Chloride 20 MEQ Q8H 12/06 0830 AC 12/07 Dextrose/Sodium 1,000 ML IV 0302 Chloride Prednisone 10 MG Q48@0800 12/05 0800 AC 12/05 PO 0810 Results Last 48 Hours of Labs: Laboratory Tests 12/07 12/06 12/06 06 1900 0630 Chemistry Sodium (137 - 145 mmol/L) Pending 138 Potassium (3.5 - 5.1 mmol/L) Pending 3.6 2.8 *L Chloride (98 - 107 mmol/L) Pending 109 H Carbon Dioxide (22 - 30 mmol/L) Pending 21 L Anion Gap (5 - 16) Pending 8 BUN (7 - 17 mg/dL) Pending 8 Creatinine (0.5 - 1.0 mg/dL) Pending 0.5 Estimated GFR (>60 ml/min) > 60 BUN/Creatinine Ratio (7 - 25 %) Pending 16.0 Magnesium (1.6 - 2.3 mg/dL) 1.7 Hematology CBC w Diff Pending NO MAN DIFF REQ WBC (4.8 - 10.8 /CUMM) Pending 10.5 RBC (4.20 - 5.40 /CUMM) Pending 2.77 L Hgb (12.0 - 16.0 G/DL) Pending 8.6 L Hct (37 - 47 %) Pending 26.0 L MCV (81.0 - 99.0 FL) Pending 93.7 MCH (27.0 - 31.0 PG) Pending 31.0 RDW (11.5 - 14.5 %) Pending 19.7 H Plt Count (130 - 400 /CUMM) Pending 309 MPV (7.4 - 10.4 FL) Pending 8.5 Gran % (42.2 - 75.2 %) 88.3 H Lymphocytes % (20.5 - 51.1 %) 5.4 L Monocytes % (1.7 - 9.3 %) 5.9 Eosinophils % (0 - 5 %) 0.2 Basophils % (0.0 - 2.0 %) 0.2 Absolute Granulocytes (1.4 - 6.5 /CUMM) 9.2 H Absolute Lymphocytes (1.2 - 3.4 /CUMM) 0.6 L Absolute Monocytes (0.10 - 0.60 /CUMM) 0.6 Absolute Eosinophils (0.0 - 0.7 /CUMM) 0 Absolute Basophils (0.0 - 0.2 /CUMM) 0 PUBS MCHC (33.0 - 37.0 G/DL) Pending 33.1 05/08 1235 Urines Urinalysis MOD H Urine Color (YEL,AMB,STR) TAYLOR Urine Clarity (CLEAR) CLEAR Urine pH (5.0 - 8.0) 6.0 Ur Specific [place] (1.001 - 1.035) 1.025 Urine Protein (NEG,<30 MG/DL) 30 H Urine Ketones (NEG) NEG Urine Nitrite (NEG) POS H Urine Bilirubin (NEG) NEG Urine Urobilinogen (0.1 - 1.0 EU/dl) 0.2 Ur Leukocyte Esterase (NEG) TRACE H Ur Microscopic SEDIMENT EXAMINED Urine RBC (0 - 5 /HPF) 5-10 H Urine WBC (0 - 2 /HPF) 1-3 H Ur Epithelial Cells (NONE,FEW) MOD H Urine Bacteria (NEG/NONE) FEW H Hyaline Casts (0/LPF) 1-3 H Granular Casts (NONE /LPF) RARE H Urine Hemoglobin (NEG) TRACE-INTACT Urine Glucose (N MG/DL) NEG Assessment/Plan Assessment/Plan This 71 year old female with history of colitis and nephrectomy for donor kidney , is now POD#4 s/p r fem hernia repair, ex lap, sb rsxn for incarcerated bowel with perforation / fecal contamination pain controlled tolerating clears. try fulls. advance to low residue if tolerating fulls decrease iv fluids and stop later if tolerating diet d/c reglan since she is moving her bowels and not nauseous continue iv antibiotics for intra-abdominal infection / perforated bowel home meds ordered, including prednisone oob/ambulating hep sc - dvt ppx dressings changed f/u labs discussed above with Core Measures/Miscellaneous Venous Thromboembolism VTE Risk Factors: Age > 40, Surgery VTE Contraindications: No Contraindications VTE Diagnosis: No VTE Type: NONE VTE Confirmed by (Test): NONE Beta Margret Is Beta Margret a Home Med? No Antibiotics Is Patient on Antibiotics? Yes If Yes: infection
[2016-12-07 07:51] LABS: ABSOLUTE BASOPHIL COUNT 0 /CUMM (0.0-0.2); ABSOLUTE EOSINOPHIL COUNT 0.1 /CUMM (0.0-0.7); ABSOLUTE GRANULOCYTE CT 6.3 /CUMM (1.4-6.5); ABSOLUTE LYMPH COUNT 0.6 /CUMM (1.2-3.4); ABSOLUTE MONOCYTE COUNT 0.6 /CUMM (0.10-0.60); BASOPHIL % 0.2 % (0.0-2.0); EOSINOPHIL % 0.7 % (0-5); GRANULOCYTE % 83.2 % (42.2-75.2); HEMATOCRIT 25.6 % (37-47); MEAN CORPUSCULAR HGB 30.3 PG (27.0-31.0); MEAN CORPUSCULAR HGB CONC 32.8 G/DL (33.0-37.0); MEAN CORPUSCULAR VOLUME 92.3 FL (81.0-99.0); MEAN PLATELET VOLUME 8.2 FL (7.4-10.4); PLATELET COUNT 315 /CUMM (130-400); RED BLOOD CELL CT 2.77 /CUMM (4.20-5.40); WHITE BLOOD CELL COUNT 7.6 /CUMM (4.8-10.8)
--- NOTE | 2016-12-07 08:54 | PN- Medicine Consult ---
Assessment/Plan Assessment/Plan Assessment: Patient is status post day 4 emergent colectomy for incarcerated hernia/ischemic small bowel. Possible peritonitis with leukocytosis currently on antibiotics per surgical team. She appears well postoperative and tolerating diet. Noted hypokalemia that is now resolved. She has minimal pain is well controlled with current pain medications. Plan: Antibiotic as per primary team Continue potassium supplement Encourage by mouth fluids and discontinue IV fluids Continue other home medications Ambulate patient Problem List: 1. Incarcerated hernia 2. Small bowel obstruction Subjective Subjective: Patient tolerating oral diet and having bowel movements. She has minimal abdominal discomfort. Review of Systems Constitutional: Denies: no symptoms, see HPI, chills, diaphoresis, fever, malaise, weakness, unexplained weight loss. Cardiovascular: Denies: no symptoms, see HPI, chest pain, edema, orthopena, palpitations, peripheral edema, syncope. Respiratory: Denies: no symptoms, see HPI, cough, hemoptysis, orthopnea, short of breath, sputum production, stridor, wheezing. Gastrointestinal: Reports: abdominal pain. Genitourinary: Denies: no symptoms, see HPI, discharge, dysuria, frequency, hematuria, hesitation, nocturia, pain, urgency. Musculoskeletal: Denies: no symptoms, see HPI, back pain, gout, joint pain, joint swelling, muscle pain, muscle stiffness, neck pain. Skin: Denies: no symptoms, see HPI, cysts, change in skin color, change in hair/nails, dryness, erythema, jaundice, lesions, lymphangitis, lumps, moles, rash. Objective Last 24 Hrs of Vital Signs/I&O Vital Signs Date Time Temp Pulse Resp B/P B/P Pulse O2 O2 Flow FiO2 Mean Ox Delivery Rate 12/07 0628 98.1 75 18 130/82 93 Room Air 12/06 2235 98.1 70 20 120/76 94 Room Air 12/06 1449 98.0 74 20 110/70 96 12/06 1141 98.0 12/06 0934 82 108/50 93 Room Air Intake & Output 12/07 1600 12/07 0800 05 0000 Intake Total 1000 1000 Output Total 300 Balance 700 1000 Intake, IV 1000 1000 Number 1 Bowel Movements Output, Urine 300 Physical Exam General Appearance: alert, comfortable Cardiovascular: regular rate/rhythm Respiratory: normal breath sounds, chest non-tender Abdomen: normal bowel sounds, soft Extremities: no edema Current Medications: Current Medications Sig/Timoteo Start time Last Medication Dose Route Stop Time Status Admin Acetaminophen 1,000 MG Q6P PRN 12/03 2199 AC 12/06 N/A 1 UNIT IV 1218 Ceftriaxone Sodium 1,000 MG 22012/030 AC 12/06 IV 2058 Docusate Sodium 100 MG BID 12/06 2200 AC PO Famotidine 20 MG BID 12/03 220 AC 12/06 IV 2058 Heparin Sodium 5,000 UNIT Q8 12/04 06 AC 12/07 (Porcine) SC 06 Mercaptopurine 75 MG DAILY 12/04 1000 AC 12/06 PO 09 Mesalamine 500 MG TID 12/05 1000 AC 12/06 PO 2057 Metoclopramide HCl 10 MG AC 12/07 0700 DC 12/07 PO 06 Metronidazole 500 MG Q8 12/03 2199 AC 12/07 N/A 1 UNIT IV 0609 Ondansetron HCl 4 MG Q6P PRN 12/03 220 AC IV Patient Medication 1 ED .STK-MED ONE 12/06 1404 DC Teaching ED 12/06 1405 Phenol 2 SPRAY Q2P PRN 12/04 0945 AC EXT Potassium Chloride 40 MEQ ONCE ONE 12/06 1615 DC 12/06 PO 12/06 1616 1656 Potassium Chloride 20 MEQ BID 12/06 1000 AC 12/06 PO 2057 Potassium Chloride 20 MEQ Q8H 12/06 0830 AC 12/07 Dextrose/Sodium 1,000 ML IV 0302 Chloride Prednisone 10 MG Q48@0800 12/05 0800 AC 12/05 PO 0810 Results Last 24 Hrs Lab/Woody Results: Laboratory Tests 12/07/16 0605: Anion Gap 7, Estimated GFR > 60, BUN/Creatinine Ratio 10.0, CBC w Diff Pending, WBC Pending, RBC Pending, Hgb Pending, Hct Pending, MCV Pending, MCH Pending, RDW Pending, Plt Count Pending, MPV Pending, Gran % Pending, Lymphocytes % Pending, Monocytes % Pending, Eosinophils % Pending, Basophils % Pending, Absolute Granulocytes Pending, Absolute Lymphocytes Pending, Absolute Monocytes Pending, Absolute Eosinophils Pending, Absolute Basophils Pending, PUBS MCHC Pending 12/06/16 1900:
[2016-12-07 14:26] VITALS: BP 118/70
--- NOTE | 2016-12-07 16:09 | Patient Discharge Instructions ---
Discharge Instructions General Discharge Information You were seen/treated for: Strangulated right femoral hernia, ischemic small bowel You had these procedures: Surgery Date: 12/03/16 Name of Procedure: Open femoral hernia repair with mesh, exploratory laparotomy, small bowel resection Watch for these problems: fever>101.3, increased pain, redness/swelling/drainage Call Surgeon to remove: Jeni No bath, but you may shower: Yes Other wound care: Daily packing changes by home nursing, dry guaze dressing changes daily over incisions Special Instructions: Call Dr Badillo office for an appointment to be seen one week after discharge. [phone] Amezquita at your scheduled visit next week. Diet Continue normal diet: Yes Recommended Diet: Low Residue Activity Full Activity/No Limits: No Activity Self Limited: Yes Pounds, do NOT lift more than: 10 Other activity limits: no heavy lifting. no strenuous activity. Acute Coronary Syndrome Inclusion Criteria At DC or during hospital stay patient has or had the following: ACS DIAGNOSIS No Discharge Core Measures Meds if any: Prescribed or Continued at Discharge Meds if any: NOT Prescribed or Continued at Discharge Congestive Heart Failure Inclusion Criteria At DC or during hospital stay patient has or had the following: CHF DIAGNOSIS No Discharge Core Measures Meds if any: Prescribed or Continued at Discharge Meds if any: NOT Prescribed or Continued at Discharge Cerebrovascular accident Inclusion Criteria At DC or during hospital stay patient has or had the following: CVA/TIA Diagnosis No Discharge Core Measures Meds if any: Prescribed or Continued at Discharge Meds if any: NOT Prescribed or Continued at Discharge Venous thromboembolism Inclusion Criteria VTE Diagnosis No VTE Type NONE VTE Confirmed by (Test) NONE Discharge Core Measures - Per Current guidelines, there needs to be overlap - treatment for the first 5 days of Warfarin therapy. - If discharged on Warfarin prior to 5 days of - overlap therapy, the patient will need to be - assessed for post discharge needs including - *Post discharge parental anticoagulation - *Warfarin and/or parental anticoagulation education - *Follow up date to check INR post discharge At least 5 days overlap therapy as Inpatient No Meds if any: Prescribed or Continued at Discharge Note: Overlap Therapy is Warfarin and Anticoagulant Meds if any: NOT Prescribed or Continued at Discharge
--- NOTE | 2016-12-07 16:41 | Surgical Discharge Summary ---
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 Musculoskeletal: degen joint disease, osteoarthritis, osteoporosis, R TKR x 2 Psychiatric: NONE Endocrine: osteoporosis Blood Disorders: anemia (mild) Cancer(s): NONE 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 FH: cancer MOTHER, , Age 96; Cause: Dementia. Psychosocial History Who Do You Live With? Daughter Services at Home: None What is Your Primary Language? Macedonian ETOH Use: denies use Review of Systems: see h&p Hospital Course Course Attending Physician: MAYELIN NEVES DO Primary Care Physician: MIRIAM ALANIS,[facility] Course: Presented to the ED on 12/03/16 with abdominal pain and right groin buldge. Imaging showed evidence of an incarcerated inguinal hernia and associated bowel obstruction. She was taken to the OR directly from the ED for open repair of her right sided femoral hernia, and an exploratory laparotomy with small bowel resection for a segment of small intestine that was incarcerated within the femoral hernia. There was fecal contamination from the incarcerated small bowel segment that was ischemic and gangrenous. She was washed out thoroughly, and antibiotics were continued post-operatively. An ng tube was placed in the OR, but it was unsuccessful as she has a large hiatal hernia with a mostly thoracic stomach. She was given stress-dosed steroids duc-operatively, and then placed back on her every other day dose of prednisone. With return of bowel function, she was started on clears, and slowly advanced to a low residue diet. Her PCP, , followed her post-operative course for co-management. She will be discharge to home with home health services, and will continue oral antibiotics to complete 10 days total. Complications: None Allergies: Coded Allergies: NO KNOWN ALLERGIES (03/21/14) Disposition Summary Disposition Principal Diagnosis: Strangulated right femoral hernia, ischemic small bowel Additional Diagnosis: same s/p Surgery Date: 12/03/16 Name of Procedure: Open femoral hernia repair with mesh, exploratory laparotomy, small bowel resection Discharge Disposition: home health services Discharge Instructions General Discharge Information Code Status: Full Code Patient's Diet: low residue diet Patient's Activity: no heavy lifting >10 lbs. no strenuous activity. Follow-Up Instructions/Appts: call to schedule follow up visit within one week lavonne to be removed around post-op day#14 complete 10 day course of antibiotics home health services arranged by case managment Medications at Discharge Discharge Medications: Continue taking these medications: Famotidine (Famotidine) 20 MG TABLET 1 Tablet ORAL TWICE DAILY Qty = 60 Comments: Last Taken: Time: NOT GIVEN ON THIS ADMISSION Potassium Chloride (Potassium Chloride) 20 MEQ TAB.ER.PRT 1 Tablet ORAL DAILY Qty = 30 Comments: Last Taken: Time: NOT GIVEN Multivitamin (Multi-Day Vitamins) 1 EACH TABLET 1 Tablet ORAL DAILY Comments: Last Taken: Time: NOT GIVEN ON THIS ADMISSION Vitamin E Mixed (Vitamin E) 400 UNIT TABLET 1 Tablet ORAL TWICE DAILY Comments: Last Taken: Time: NOT GIVEN Holiday-3 Fatty Acids (Holiday-3) (Unknown Strength) CAPSULE Unknown Dose ORAL DAILY Comments: Last Taken: Time: NOT GIVEN Mercaptopurine (Mercaptopurine) 50 MG TABLET 1.5 Tablet ORAL DAILY Alendronate Sodium (Alendronate Sodium) 35 MG TABLET 1 Tablet ORAL Once a Week Qty = 4 Cholecalciferol (Vitamin D3) (Vitamin D) 1,000 UNIT TABLET 1 Tablet ORAL DAILY Cyanocobalamin (Vitamin B-12) (Vitamin B-12) 5,000 MCG TAB.SUBL 1 Tablet SUBLINGUAL DAILY Prednisone (Prednisone) 10 MG TABLET 1 Tablet ORAL EVERY 48 HOURS (Every 2 days) Mesalamine (Apriso) 0.375 GRAM CAP.ER.24H 4 Capsule ORAL DAILY Qty = 120 Start taking the following new medications: Ciprofloxacin HCl (Cipro) 500 MG TABLET 1 Tablet ORAL TWICE DAILY Qty = 10 No Refills Metronidazole (Flagyl) 500 MG TABLET 1 Tablet ORAL THREE TIMES DAILY Qty = 15 No Refills Copies To: MIRIAM ALANIS,OMARITH
[2016-12-07] MEDS ORDERED: CIPRO500 M1 PO (16:46)
[2016-12-07] MEDS ORDERED: FLAGYL500 MG PO (16:46)
[2016-12-07 22:43] VITALS: BP 128/64
[2016-12-08 06:34] VITALS: BP 122/68
[2016-12-08 07:56] LABS: ABSOLUTE EOSINOPHIL COUNT 0.1 /CUMM (0.0-0.7); ABSOLUTE MONOCYTE COUNT 0.6 /CUMM (0.10-0.60)
[2016-12-08 08:16] LABS: ABSOLUTE BASOPHIL COUNT 0 /CUMM (0.0-0.2); ABSOLUTE GRANULOCYTE CT 5.4 /CUMM (1.4-6.5); ABSOLUTE LYMPH COUNT 0.9 /CUMM (1.2-3.4); BASOPHIL % 0.2 % (0.0-2.0); EOSINOPHIL % 1.6 % (0-5); MEAN CORPUSCULAR HGB 30.3 PG (27.0-31.0); MEAN CORPUSCULAR HGB CONC 33.3 G/DL (33.0-37.0); MEAN CORPUSCULAR VOLUME 91.2 FL (81.0-99.0); MEAN PLATELET VOLUME 8.3 FL (7.4-10.4); PLATELET COUNT 423 /CUMM (130-400); RBC DISTRIBUTION WIDTH 19.1 % (11.5-14.5); RED BLOOD CELL CT 3.36 /CUMM (4.20-5.40); WHITE BLOOD CELL COUNT 7.1 /CUMM (4.8-10.8)
[2016-12-08 08:19] LABS: HEMATOCRIT 30.6 % (37-47)
--- NOTE | 2016-12-08 08:54 | PN- Medicine Consult ---
Assessment/Plan Assessment/Plan Assessment: Patient is status post day 5 emergent colectomy for incarcerated hernia/ischemic small bowel. Possible peritonitis with leukocytosis currently on antibiotics per surgical team. She appears well postoperative and tolerating diet. She has minimal pain is well controlled with current pain medications. Plan: Antibiotic as per primary team Continue oral maintenance potassium supplement Continue other home medications Ambulate patient Problem List: 1. Incarcerated hernia 2. Small bowel obstruction Subjective Subjective: Patient has minimal pain symptoms and she is tolerating oral diet. Having regular bowel movements. Review of Systems Constitutional: Denies: no symptoms, see HPI, chills, diaphoresis, fever, malaise, weakness, unexplained weight loss. Cardiovascular: Denies: no symptoms, see HPI, chest pain, edema, orthopena, palpitations, peripheral edema, syncope. Respiratory: Denies: no symptoms, see HPI, cough, hemoptysis, orthopnea, short of breath, sputum production, stridor, wheezing. Gastrointestinal: Reports: abdominal pain. Musculoskeletal: Denies: no symptoms, see HPI, back pain, gout, joint pain, joint swelling, muscle pain, muscle stiffness, neck pain. Objective Last 24 Hrs of Vital Signs/I&O Vital Signs Date Time Temp Pulse Resp B/P B/P Pulse O2 O2 Flow FiO2 Mean Ox Delivery Rate 12/08 0634 98.2 63 18 122/68 95 Room Air 12/07 2243 98.1 68 20 128/64 97 Room Air 12/07 1426 99.9 74 18 118/70 96 Room Air Intake & Output 12/08 1600 12/08 0800 12/08 0000 Intake Total 250 763 Output Total 400 Balance 250 363 Intake, IV 150 163 Intake, Oral 100 600 Output, Urine 400 Physical Exam General Appearance: alert, awake Cardiovascular: regular rate/rhythm Respiratory: normal breath sounds, chest non-tender, lungs clear Abdomen: tenderness Extremities: no edema Current Medications: Current Medications Sig/Timoteo Start time Last Medication Dose Route Stop Time Status Admin Acetaminophen 1,000 MG Q6P PRN 12/03 2199 AC 12/06 N/A 1 UNIT IV 1218 Ceftriaxone Sodium 1,000 MG 12/03 AC 05/ IV 204 Docusate Sodium 100 MG BID 12/06 2199 AC PO Famotidine 20 MG BID 12/03 2199 AC 12/07 IV 2052 Heparin Sodium 5,000 UNIT Q8 12/04 0600 AC 12/08 (Porcine) SC 0602 Mercaptopurine 75 MG DAILY 12/04 1000 AC 12/07 PO 1012 Mesalamine 500 MG TID 12/05 1000 AC 12/07 PO 2110 Metronidazole 500 MG Q8 12/03 2200 AC 12/08 N/A 1 UNIT IV 0602 Ondansetron HCl 4 MG Q6P PRN 12/03 2200 AC IV Patient Medication 1 ED .STK-MED ONE 12/07 1405 DC Teaching ED 12/07 1406 Phenol 2 SPRAY Q2P PRN 12/04 0945 AC EXT Potassium Chloride 20 MEQ BID 12/06 1000 DC 12/07 PO 1012 Potassium Chloride 20 MEQ Q8H 12/06 0830 DC 12/07 Dextrose/Sodium 1,000 ML IV 0302 Chloride Prednisone 10 MG Q48@0800 12/05 0800 AC 12/07 PO 1012 Results Last 24 Hrs Lab/Woody Results: Laboratory Tests 12/08/16 0700: Anion Gap 10, Estimated GFR > 60, BUN/Creatinine Ratio 8.0, CBC w Diff NO MAN DIFF REQ, RBC 3.36 L, MCV 91.2, MCH 30.3, RDW 19.1 H, MPV 8.3, Gran % 76.0 H, Lymphocytes % 13.5 L, Monocytes % 8.7, Eosinophils % 1.6, Basophils % 0.2, Absolute Granulocytes 5.4, Absolute Lymphocytes 0.9 L, Absolute Monocytes 0.6, Absolute Eosinophils 0.1, Absolute Basophils 0, PUBS MCHC 33.3
--- NOTE | 2016-12-08 10:53 | PN- General Surgery ---
Subjective Subjective: OOB, ready to go home Feels good - has not taken pain meds in several days Tolerating low residue diet - had loose bm's yesterday Objective Vital Signs and I&Os Vital Signs Date Time Temp Pulse Resp B/P B/P Pulse O2 O2 Flow FiO2 Mean Ox Delivery Rate 12/08 0634 98.2 63 18 122/68 95 Room Air 12/07 2243 98.1 68 20 128/64 97 Room Air 12/07 1426 99.9 74 18 118/70 96 Room Air Intake & Output 12/08 1600 12/08 0800 12/08 0000 12/07 1600 12/07 0800 12/07 0000 Intake Total 150 865 5201 1000 1000 Output Total 400 600 300 Balance 250 363 563 373 9213 Intake, IV 150 674 130 8470 1000 Intake, Oral 100 600 480 Number 1 1 Bowel Movements Output, Urine 400 600 300 Physical Exam: Tmax 99.9, tcurrent 98.2 General: alert and oriented times three Chest: clear bilaterally Abd: soft, nontender, nondistended, good bs Ext: warm, no calf tenderness Wounds: lavonne intact, packing removed - still with saturation to packing - seropurulent, no active drainage, no erythema Packing replaced Assessment/Plan Assessment/Plan 71 yo female s/p r femoral hernia repair/sb resection pod 5, now tolerating low residue diet Continue LRD - instructions given to patient dc home with services for wound care/daily packing changes cipro/flagyl for 5 days at discharge follow up with Dr Coley follow up with Dr Good Core Measures/Miscellaneous Venous Thromboembolism VTE Risk Factors: Age > 40, Surgery VTE Contraindications: No Contraindications VTE Diagnosis: No VTE Type: NONE VTE Confirmed by (Test): NONE Beta Margret Is Beta Margret a Home Med? No Antibiotics Is Patient on Antibiotics? Yes If Yes: infection
[2016-12-08] MEDS ORDERED: AUGMENTIN 875-1 EACH PO (11:33)
== END 2016-12-08 12:50 | disposition home health service (06) | DRG 329 ==
LOC: ERH 15:10 → PACUH 21:46 → 2NA 21:46 → ENRESERV 22:24 → 2NA 22:41 → ENPENDDIS 12-08 11:31 → 2NA 12-08 12:50
PROVIDERS: Emergency Medicine; Nurse Practitioner; Physician Assistant; Physician Assistant Surgical; ADMIT Surgery
PROC: 0YU Anatomical Regions, Lower Extremities, Supplement (ICD-10-PCS; principal; 2016-12-03)
PROC: 0DB80ZZ Excision of Small Intestine, Open Approach (ICD-10-PCS; principal; 2016-12-03)
PROC: 3E0T3CZ (ICD-10-PCS; 2016-12-03)
DX: K41.40 Unilateral femoral hernia, with gangrene, not specified as recurrent (principal); K55.019 Acute (reversible) ischemia of small intestine, extent unspecified; K63.1 Perforation of intestine (nontraumatic); K65.9 Peritonitis, unspecified; E87.6 Hypokalemia; K21.9 Gastro-esophageal reflux disease without esophagitis; Z87.891 Personal history of nicotine dependence; Z87.19 Personal history of other diseases of the digestive system
CPT/HCPCS: 2NAP; 36415; 74177; 81001; 82436; 88302; 88307; 93005; 93010; 96374; C1781; J0131; J0690; J0696; J1170; J1644; J1720; J2250; J3010; J7042; J7512; S0108; S5012

== ENCOUNTER 2016-12-19 15:45 | Emergency (ER) | payer OTHER ==
[~2016-12-19] VITALS: Ht 165.1 cm; Wt 49.0 kg
[~2016-12-19 15:45] MED LIST changes: +AUGMENTIN 875-1 EACH PO; +CIPRO500 M1 PO; +FLAGYL500 MG PO; +VITAMIN B-125000 MCG SL; +VITAMIN D1000 UNIT PO
[2016-12-19 15:49] VITALS: BP 147/80
--- NOTE | 2016-12-19 17:32 | ULTRASOUND REPORT ---
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 For follow-up. COMPARISON: CT of the abdomen and pelvis done on 12/03/2016. TECHNIQUE: Targeted ultrasound including Doppler evaluation of the inferior vena cava, both common iliac veins were performed. FINDINGS: Both common iliac and the entire visualized part of the inferior vena cava appeared widely patent. Flow within the common iliac veins as well as inferior vena cava appear well-maintained. Specifically, there is no evidence of any intraluminal thrombus identified within the intrahepatic part of the inferior cava, as was suspected on prior CT study dated 12/03/2016. The CT detected apparent filling defect likely represent flow from secondary to nonopacified blood. IMPRESSION: No sonographic evidence of IVC thrombus is identified.
--- NOTE | 2016-12-19 17:37 | ED GENERAL ADULT ---
History of Present Illness General Chief Complaint: General Adult Stated Complaint: SENT BY DR. FLORES FOR ULTRASOUND Source: patient, old records Exam Limitations: no limitations Vital Signs & Intake/Output Vital Signs & Intake/Output Vital Signs Date Time Temp Pulse Resp B/P B/P Pulse O2 O2 Flow FiO2 Mean Ox Delivery Rate 12/19 1549 97.5 66 18 147/80 97 Room Air Allergies Coded Allergies: NO KNOWN ALLERGIES (03/21/14) Reconcile Medications Alendronate Sodium 35 MG TABLET 1 TAB PO QW BONES (Reported) Amoxicillin/Potassium Clav (Augmentin 875-125 Tablet) 875 MG-125 MG TABLET 1 TAB PO BID INFECTION Cholecalciferol (Vitamin D3) (Vitamin D) 1,000 UNIT TABLET 1 TAB PO DAILY SUPPLEMENT (Reported) Cyanocobalamin (Vitamin B-12) (Vitamin B-12) 5,000 MCG TAB.SUBL 1 TAB SL DAILY SUPPLEMENT (Reported) Famotidine 20 MG TABLET 1 TAB PO BID GI (Reported) Mercaptopurine 50 MG TABLET 1.5 TAB PO DAILY ULCERATIVE COLITIS (Reported) Mesalamine (Apriso) 0.375 GRAM CAP.ER.24H 4 CAP PO DAILY ulcerative colitis ( Reported) Multivitamin (Multi-Day Vitamins) 1 EACH TABLET 1 TAB PO DAILY SUPPLEMENT ( Reported) [place]-3 Fatty Acids ([place]-3) (Unknown Strength) CAPSULE (Unknown Dose) PO DAILY SUPPLEMENT (Reported) Potassium Chloride 20 MEQ TAB.ER.PRT 1 TAB PO DAILY SUPPLEMENT (Reported) Prednisone 10 MG TABLET 1 TAB PO Q48 colitis (Reported) Vitamin E Mixed (Vitamin E) 400 UNIT TABLET 1 TAB PO BID SUPPLEMENT (Reported ) Triage Note: REPORTS TO THE ED FOR EVALUATION RECOMMENDED BY DR EISENBERG TO R/O POSSIBLE THROMBUS ON IVC FILTER. DENIED SX Triage Nurses Notes Reviewed? yes HPI: 71-year-old female with a history of ventral hernia status post repair 2 weeks ago, cholelithiasis, ulcerative colitis, renal stones, osteoarthritis, osteoporosis sent in by Dr. Flores for ultrasound to evaluate for IVC thrombosis. Patient had incidental finding of possible IVC filling defect found on CT scan when evaluating her prior hernia. Denies any history of blood clots, no recent leg swelling. Not currently on any anticoagulation. (IBRAHIMA JONES,SHANICE) Past History Travel History Traveled to [place] past 21 day No Medical History Any Pertinent Medical History? 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 FH: cancer MOTHER, , Age 96; Cause: Dementia. Hx Contributory? No (SHANICE ALEXANDRA PA-C) Review of Systems Review of Systems Constitutional: Reports: no symptoms. Respiratory: Reports: no symptoms. Cardiovascular: Reports: no symptoms. GI: Reports: no symptoms. Musculoskeletal: Reports: no symptoms. Skin: Reports: no symptoms. (SHANICE ALEXANDRA PA-C) Physical Exam Physical Exam General Appearance: well developed/nourished, no apparent distress, comfortable Head: atraumatic Respiratory: normal breath sounds, lungs clear Cardiovascular: regular rate/rhythm Gastrointestinal: soft, non-tender, vertical surgical incision inferior to umbilicus appears to be healing well no erythema or purulent drainage Extremities: no edema, no erythema or increased warmth Core Measures ACS in differential dx? No CVA/TIA Diagnosis: No Severe Sepsis Present: No Septic Shock Present: No (SHANICE ALEXANDRA PA-C) Progress Differential Diagnoses I considered the following diagnoses in my evaluation of the patient: [IVC thrombosis] Plan of Care: Ultrasound was negative for IVC thrombosis. Dr. Flores informed of results. Patient will follow-up with him in the office. Initial ED EKG: none (SHANICE ALEXANDRA PA-C) Departure Departure Disposition: HOME OR SELF CARE Condition: Stable Clinical Impression Primary Impression: Encounter for medical screening examination Referrals: BENNETT PINEDA MD (PCP/Family) Additional Instructions: Follow-up with Dr. Flores. Return to the ED for any new or worsening symptoms. Departure Forms: Customer Survey General Discharge Information (IBRAHIMA JONES,SHANICE) PA/COOK PIE Co-Sign Statement Statement: ED Attending supervision documentation- [] I saw and evaluated the patient. I have also reviewed all the pertinent lab results and diagnostic results. I agree with the findings and the plan of care as documented in the PA's/COOK PIE's documentation. [X] I have reviewed the ED Record and agree with the PA's/COOK PIE's documentation. [] Additions or exceptions (if any) to the PAs/COOK PIE's note and plan are summarized below: [] (DIPIKA ALANIS,KARINE) Critical Care Note Critical Care Note Critical Care Time: non-applicable (SHANICE ALEXANDRA PA-C)
== END 2016-12-19 18:15 ==
LOC: ERH 15:45
DX: Z00.00 Encounter for general adult medical examination without abnormal findings (principal)

== ENCOUNTER 2018-02-07 03:08 | Inpatient (IN) | payer OTHER ==
--- NOTE | 2018-02-06 11:46 | History & Physical Pre-Op ---
General Information and HPI History of Present Illness: Patient presents for scheduling hiatal hernia repair. Scheduling her hiatal hernia repair has been difficult over the past 2 years. Initially there was debilitation and malnutrition related to severe diarrhea from ulcerative colitis. Her ulcerative colitis diarrhea is completely resolved. She is off oral steroids. She is gaining weight. Last year she developed acute gangrenous incarceration of small bowel loop in the right femoral hernia. She underwent exploratory laparotomy with bowel resection and her repair. Patient has now convalesced and is ready to schedule her hiatal hernia repair. She complains of GERD controlled with H2 paula. There is no regurgitation. There is no odynophagia or dysphasia. She complains of postprandial "chest squeezing" mild dyspnea following meals. Allergies/Medications Allergies: Coded Allergies: No Known Allergies (02/05/18) Home Med list Cholecalciferol (Vitamin D3) (Vitamin D) 1,000 UNIT TABLET 1 TAB PO DAILY SUPPLEMENT (Reported) Cyanocobalamin (Vitamin B-12) (Vitamin B-12) 5,000 MCG TAB.SUBL 1 TAB SL DAILY SUPPLEMENT (Reported) Famotidine 20 MG TABLET 1 TAB PO BID GI (Reported) Mercaptopurine 50 MG TABLET 1 TAB PO DAILY ULCERATIVE COLITIS (Reported) Mesalamine (Apriso) 0.375 GRAM CAP.ER.24H 3 CAP PO DAILY UC (Reported) Multivitamin (Multi-Vitamin Daily) 1 EACH TABLET 1 TAB PO DAILY SUPPLEMENT ( Reported) Vitamin E Mixed (Vitamin E) 400 UNIT TABLET 1 TAB PO BID SUPPLEMENT (Reported ) Past History Medical History Neurological: NONE EENT: cataracts Cardiovascular: NONE Respiratory: NONE Gastrointestinal: GERD, hiatal hernia, ulcerative colitis, DIVERTICULOSIS RIH Hepatic: cholelithiasis, fatty liver Renal: 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 Musculoskeletal: degen joint disease, osteoarthritis, osteoporosis, R TKR x 2 Psychiatric: anxiety Endocrine: osteoporosis Blood Disorders: anemia (mild) 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 FH: cancer MOTHER, , Age 96; Cause: Dementia. Psychosocial History Who Do You Live With? spouse (Smiley Orozco (dtr)), child Services at Home None Primary Language: North Korean Smoking Status: Former Smoker Living Will? 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 Ambulation: independent IADLs Independent: shopping, housework, finances, food prep, telephone, transportation , medication admin. Review of Systems Review of Systems: Patient reports weight gain (15lbs) but reports no fatigue, no fever, no night sweats, no significant weight loss, and no exercise intolerance. She reports no abnormal moles, no jaundice, no hives, no eczema, and no rashes. She reports no cough, no wheezing, no shortness of breath, and no coughing up blood. She reports no chest pain, no arm pain on exertion, no shortness of breath when walking, no shortness of breath when lying down, no palpitations, and no leg swelling. She reports no abdominal pain, no vomiting, no vomiting blood, normal appetite, no diarrhea, no constipation, no rectal bleeding, and no history of GERD. She reports no incontinence, no difficulty urinating, no hematuria, and no increased frequency. She reports no muscle aches, no muscle weakness, no arthralgias/joint pain, and no back pain. Exam & Diagnostic Data Physical Exam: Patient is a 72-year-old female. Constitutional: General Appearance: healthy-appearing, well-nourished, and well- developed. Level of Distress: no acute distress. Ambulation: ambulating normally. Head: Head: normocephalic and atraumatic. Cardiovascular: Heart Auscultation: normal S1 and S2, no rubs or gallops, and regular rate and rhythm and murmur. Lungs: Respiratory effort: no dyspnea. Percussion: no dullness, flatness, or hyperresonance. Auscultation: no wheezing, rales/crackles, or rhonchi and breath sounds normal, good air movement, and clear to auscultation. Back: Thoracolumbar Appearance: normal curvature. Abdomen: Inspection and Palpation: no tenderness, guarding, masses, rebound tenderness, or CVA tenderness and soft and non-distended. Bowel Sounds: normal. Liver: non-tender and no hepatomegaly. Spleen: non-tender and no splenomegaly. Hernia: none palpable. Skin: Inspection and palpation: no rash, lesions, ulcer, induration, nodules, jaundice, or abnormal nevi and good turgor. Musculoskeletal:: Extremities: no cyanosis, edema, varicosities, or palpable cord. Motor Strength and Tone: normal tone and motor strength. Joints, Bones, and Muscles: no contractures, malalignment, tenderness, or bony abnormalities and normal movement of all extremities. Assessment/Plan Assessment/Plan: Hiatal hernia with obstruction but no gangrene - by CT scan November 2016, hiatal hernia contains most of her stomach in the chest. My impression is that her postprandial nausea and early satiety or related to her hiatal hernia. For that reason she should have it repaired. Plan will be to perform robotic-assisted laparoscopic hiatal hernia repair with mesh and Franklin fundoplication. Patient is now healthy and gaining weight after multiple acute medical illnesses and is ready to proceed with elective repair. K44.0: Diaphragmatic hernia with obstruction, without gangrene Patient Instructions Preop eval by PCP Discussion Notes Discussed compications of surgery including but not limited to bleeding, infection, bowel injury, pneumothorax, dysphagia and bloating. Discussed the postoperative diet plan and a copy was given to the patient for review. As Ranked By This Provider Problem List: 1. Hiatal hernia with obstruction but no gangrene
[~2018-02-07] VITALS: Ht 165.1 cm; Wt 62.6 kg
[~2018-02-07 03:08] MED LIST changes: -MULTI-DAY VITA1 EACH PO; +MULTI-VITAMIN1 EACH PO
--- NOTE | 2018-02-07 16:50 | Operative Report ---
Operative/Inv Procedure Report Surgery Date: 02/07/18 Name of Procedure: Robotic-assisted laparoscopic hiatal hernia repair with mesh and Franklin fundoplication Pre-Operative Diagnosis: Hiatal hernia with obstruction Post-Operative Diagnosis: Same Estimated Blood Loss: less than 50ml Surgeon/Living Specialist: Maco ALANIS,Nic Piedra/Gurpreet CAZARES Anesthesia: general endotracheal tube Implants: A cell biologic mesh Operative/Procedure Note Note: After consent patient is brought to the operating room and laid supine. Gen. anesthesia was obtained. The abdomen was prepped and draped. The skin in the left upper quadrant was after local anesthesia an incision made for various needle at [facility]. Pneumoperitoneum was achieved.. A 12 port was placed in the right upper quadrant, optically. 3, 8 mm ports were placed in the periumbilical transverse midline. A 5 mm incision was placed in the epigastric region through which Meche retractor was placed under vision. The liver edge was lifted and Meche attached to the bed. Patient is placed in reverse Trendelenburg. The robot was docked and instruments placed. The entire stomach was herniated into the mediastinum. The stomach and omentum was delivered and reflected inferiorly. Began on the upper right crura and incised the peritoneum with the scissor cautery. We got into a plane around the sac in the mediastinum and carried or dissection up towards the apex and onto the left toyin. We then carried the dissection down to the right tyoin and circumferentially encompassed the hiatus. The sac was then circumferentially mobilized out of the mediastinum with sharp and cautery dissection. An Eran drain was placed around the hiatus and tied to itself to aid in retraction. The esophagus was then circumferentially mobilized through the mediastinum until 3-4 cm intra-abdominal esophagus could be obtained. The hernia sac was dissected and removed from the GE junction for better identification of it. The short gastric vessels were then divided with vessel sealer to mobilize the fundus. The crural defect was then closed with a combination of interrupted 0 nonabsorbable v LOC sutures and 0 Tycron sutures. The crural closure was starting to tear so we placed a second portion of the closure anteriorly with similar sutures. The fundus was then placed posterior and wrapped around anterior. A shoeshine maneuver was performed. 2-0 the LOC suture was placed on both sides the fundus to keep the plication in place. Second 2-0 Vicryl suture was placed inferiorly, incorporating the anterior portion esophagus. Finally, a cell mesh was placed over the closed crura. It was anchored with 2-0 Vicryl in 4 locations throughout the mesh. Eran drain was then removed and passed off the field. The liver edge left full down the Meche retractor removed. Ports were delivered and passed off the field. The fascia was closed 0 Vicryl suture skin closed with 4-0 Vicryl. Sterile dressings were applied. CC: Alirio ALANIS,Arnaud León; Víctor ALANIS,Sean Espinoza
--- NOTE | 2018-02-07 16:57 | Admission Core Measures ---
Acute Coronary Syndrome (CM) ACS Core Measures Acute Coronary Syndrome Diagnosis No Congestive Heart Failure (NEW) CHF Core Measures Congestive Heart Failure Diagnosis No Cerebrovascular Accident CVA Core Measures CVA/TIA Diagnosis No Venous Thromboembolism VTE Core Denise (View Protocol) VTE Risk Factors Surgery No Mechanical VTE Prophylaxis d/t N/A MechProphylax Ordered No VTE Pharm Prophylaxis d/t NA PharmProphylax ordered Problem List As ranked by this Provider includes Assessment & Plan 1. Hiatal hernia HOME MEDS Home Med List Cholecalciferol (Vitamin D3) (Vitamin D) 1,000 UNIT TABLET 1 TAB PO DAILY SUPPLEMENT (Reported) Cyanocobalamin (Vitamin B-12) (Vitamin B-12) 5,000 MCG TAB.SUBL 1 TAB SL DAILY SUPPLEMENT (Reported) Famotidine 20 MG TABLET 1 TAB PO BID GI (Reported) Mercaptopurine 50 MG TABLET 1 TAB PO DAILY ULCERATIVE COLITIS (Reported) Mesalamine (Apriso) 0.375 GRAM CAP.ER.24H 3 CAP PO DAILY UC (Reported) Multivitamin (Multi-Vitamin Daily) 1 EACH TABLET 1 TAB PO DAILY SUPPLEMENT ( Reported) Vitamin E Mixed (Vitamin E) 400 UNIT TABLET 1 TAB PO BID SUPPLEMENT (Reported )
--- NOTE | 2018-02-07 17:01 | Patient Discharge Instructions ---
Discharge Instructions General Discharge Information You were seen/treated for: Hiatal hernia with obstruction You had these procedures: Robotic-assisted laparoscopic hiatal hernia repair with mesh and Franklin fundoplication Watch for these problems: Increased pain, fever > 101.3, nausea, vomiting, redness, swelling or drainage from incisions Other wound care: Keep incisions clean and dry Ok to remove dressings in 2 days No baths/pools/hot tubs until follow up apt Diet Continue normal diet: No Recommended Diet: Franklin fundolication Additional DIET Information: DIET PER DIETITIAN INSTRUCTIONS. Activity Activity Self Limited: Yes Pounds, do NOT lift more than: 10 Other activity limits: No heavy lifting or strenous activity x 4 weeks Acute Coronary Syndrome Inclusion Criteria At DC or during hospital stay patient has or had the following: ACS DIAGNOSIS No Discharge Core Measures Meds if any: Prescribed or Continued at Discharge Meds if any: NOT Prescribed or Continued at Discharge Congestive Heart Failure Inclusion Criteria At DC or during hospital stay patient has or had the following: CHF DIAGNOSIS No Discharge Core Measures Meds if any: Prescribed or Continued at Discharge Meds if any: NOT Prescribed or Continued at Discharge Cerebrovascular accident Inclusion Criteria At DC or during hospital stay patient has or had the following: CVA/TIA Diagnosis No Discharge Core Measures Meds if any: Prescribed or Continued at Discharge Meds if any: NOT Prescribed or Continued at Discharge Venous thromboembolism Inclusion Criteria VTE Diagnosis No VTE Type NONE VTE Confirmed by (Test) NONE Discharge Core Measures - Per Current guidelines, there needs to be overlap - treatment for the first 5 days of Warfarin therapy. - If discharged on Warfarin prior to 5 days of - overlap therapy, the patient will need to be - assessed for post discharge needs including - *Post discharge parental anticoagulation - *Warfarin and/or parental anticoagulation education - *Follow up date to check INR post discharge At least 5 days overlap therapy as Inpatient No Meds if any: Prescribed or Continued at Discharge Note: Overlap Therapy is Warfarin and Anticoagulant Meds if any: NOT Prescribed or Continued at Discharge
[2018-02-07 18:00] VITALS: BP 150/55
--- NOTE | 2018-02-07 21:09 | PN- General Surgery ---
Subjective Subjective: poc s/p robotic hh rapair now c/o bilateral shoulder pain deneis cp, sob, mild nausea also has right sided neck and facial sq crepitus which is not painful Objective Vital Signs and I&Os Vital Signs Date Time Temp Pulse Resp B/P B/P Pulse O2 O2 Flow FiO2 Mean Ox Delivery Rate 02/07 1852 Room Air Room Air 02/07 1838 Room Air 02/07 1800 97.4 63 15 150/55 92 Physical Exam: cv: rrr lungs: clear, good air movement abd: soft/flat +bs wound/drsgs c/d/i ext: warm, distal cms inatct Assessment/Plan Assessment/Plan surgical stable plan toradol 30mg x1 now titrate pain meds encourage IS advance diet as toleraqted Core Measures Venous Thromboembolism VTE Risk Factors Surgery No Mechanical VTE Prophylaxis d/t N/A MechProphylax Ordered No VTE Pharm Prophylaxis d/t NA PharmProphylax ordered
[2018-02-07 21:17] VITALS: BP 152/90
[2018-02-07 21:21] VITALS: BP 140/70
[2018-02-07 22:50] VITALS: BP 131/62
[2018-02-08 00:36] VITALS: BP 122/60
[2018-02-08 06:15] VITALS: BP 122/60
[2018-02-08 08:25] LABS: ABSOLUTE BASOPHIL COUNT 0 /CUMM (0.0-0.2); ABSOLUTE EOSINOPHIL COUNT 0 /CUMM (0.0-0.7); ABSOLUTE GRANULOCYTE CT 5.7 /CUMM (1.4-6.5); ABSOLUTE LYMPH COUNT 0.5 /CUMM (1.2-3.4); ABSOLUTE MONOCYTE COUNT 0.8 /CUMM (0.10-0.60); BASOPHIL % 0.1 % (0.0-2.0); EOSINOPHIL % 0 % (0-5); GRANULOCYTE % 80.5 % (42.2-75.2); MEAN CORPUSCULAR HGB 31.1 PG (27.0-31.0); MEAN CORPUSCULAR HGB CONC 33.9 G/DL (33.0-37.0); MEAN CORPUSCULAR VOLUME 91.8 FL (81.0-99.0); MEAN PLATELET VOLUME 9.5 FL (7.4-10.4); PLATELET COUNT 192 /CUMM (130-400); RBC DISTRIBUTION WIDTH 16.6 % (11.5-14.5); RED BLOOD CELL CT 3.81 /CUMM (4.20-5.40); WHITE BLOOD CELL COUNT 7.1 /CUMM (4.8-10.8)
[2018-02-08 09:00] VITALS: BP 124/63
--- NOTE | 2018-02-08 09:02 | PN- General Surgery ---
See Addendum Subjective Subjective: Pt. denies abdominal pain. Did not require narcotics Passing flatus,no nausea Worried about swallen face and cheeks. Denies dyspnea. Objective Vital Signs and I&Os Vital Signs Date Time Temp Pulse Resp B/P B/P Pulse O2 O2 Flow FiO2 Mean Ox Delivery Rate 02/08 0615 97.8 62 20 122/60 95 Room Air 02/08 0036 97.8 62 20 122/60 95 Room Air 02/07 2250 98.6 58 20 131/62 96 02/07 2121 140/70 02/07 2117 97.8 61 18 152/90 94 / 1852 Room Air Room Air 02/07 1838 Room Air 02/07 1800 97.4 63 15 150/55 92 Intake & Output 02/08 1600 02/08 0800 02/08 0000 02/07 1600 02/07 0800 02/07 0000 Intake Total 600 405 Output Total Balance 600 405 Intake, IV 600 375 Intake, Oral 30 Patient 138 lb 123 lb Weight Weight Bed scale Bed scale Measurement Method Alert, oriented, looks comfortable. Lungs clear bilat. Heart normal rate. Palpable crepitus on face, cheeks, neck, chest. Abdomen is soft, non tender,non distended, port sites are clean, dry, intact. Extr. without edema. Assessment/Plan Assessment/Plan s/p Robtic Hiatal Hernia repair/Franklin POD#1 Stable hemodynamics Abdominal exam is benign Wounds without signs of infection She does not require narcotics for pain. Tolerating stage 1 Franklin Diet. Extensive subcutaneous emphysema , related to intraop insuflation. She has no respiratory issues. I explained to her it will eventually resolve Pt. awaiting dietitian consultation regarding diet teaching I will discuss with surgeon regarding discharge plans Core Measures Venous Thromboembolism VTE Risk Factors Surgery No Mechanical VTE Prophylaxis d/t N/A MechProphylax Ordered No VTE Pharm Prophylaxis d/t NA PharmProphylax ordered
[2018-02-08 14:00] VITALS: BP 130/50
== END 2018-02-08 16:53 | DRG 328 ==
LOC: SDA 03:08 → ENRESERV 16:53 → ENTRNSPT 17:44 → EDTRNSPTSTS 17:48 → EDTRNSPT 17:48 → 2NB 18:06 → CMPTRNSPT 18:11 → ENTRNSPT 02-08 16:40 → 2NB 02-08 16:53 → CMPTRNSPT 02-08 16:59
PROVIDERS: Physician Assistant Surgical
PROC: 0DV44ZZ Restriction of Esophagogastric Junction, Percutaneous Endoscopic Approach (ICD-10-PCS; principal; 2018-02-07)
PROC: 8E0W4CZ Robotic Assisted Procedure of Trunk Region, Percutaneous Endoscopic Approach (ICD-10-PCS; principal; 2018-02-07)
PROC: 3E0T3BZ Introduction of Anesthetic Agent into Peripheral Nerves and Plexi, Percutaneous Approach (ICD-10-PCS; principal; 2018-02-07)
PROC: 0BUT4KZ Supplement Diaphragm with Nonautologous Tissue Substitute, Percutaneous Endoscopic Approach (ICD-10-PCS; principal; 2018-02-07)
DX: K44.0 Diaphragmatic hernia with obstruction, without gangrene (principal); F41.9 Anxiety disorder, unspecified; K21.9 Gastro-esophageal reflux disease without esophagitis; H26.9 Unspecified cataract; Z90.5 Acquired absence of kidney; Z96.651 Presence of right artificial knee joint; Z90.49 Acquired absence of other specified parts of digestive tract; D64.9 Anemia, unspecified; K76.0 Fatty (change of) liver, not elsewhere classified
CPT/HCPCS: 2NBSP; 36415; 36592; 82436; 87086; C1781; J0131; J0690; J1100; J1644; J1885; J2405; J3490; J7042; S0108